=== PATIENT | male | born 1965 | race Caucasian/White ===

== ENCOUNTER → 2021-08-05 09:49 | Outpatient (CLI) | payer BC, SELFPAY | PROVIDERS: PCP Nurse Practitioner Family; Visit Provider Nurse Practitioner | DX: U07.1 COVID-19 (principal) | CPT/HCPCS: C9803; U0003; U0005 ==

== ENCOUNTER 2021-08-05 10:04 | Emergency (ER) | payer BC, SELFPAY ==
[2021-08-05 10:43] VITALS: BP 134/70; PULSE 93; RESP 18; TEMP 37.1; O2SAT 96; BMI 33.7
--- NOTE | 2021-08-05 10:50 | HMH.EDUTC ---
[facility] [place] Impression: Viral syndrome Disposition: Home, Self-Care Condition on Discharge: Good Instructions: DI for Viral Syndrome, DI for COVID-19 (Suspected or Confirmed ), Preventing the Spread of Coronavirus Discharge Instructions Additional Instructions: Drink plenty of fluids. Take tylenol or ibuprofen for pain or fever. Take the medications as directed. Follow up with your regular doctor. GO TO THE ER FOR ANY WORSENING SYMPTOMS Quarantine until you know the results of your covid-19 test. If it is positive, the health department should call you and give you further instructions about your length of Quarantine and other things. Notify your school or workplace of your results and follow their instructions regarding return to work/school. Referrals: Pushpa English APRN [Primary Care Provider] - Time of Disposition: 11:36 Medical Decision Making - Medical Records Medical records reviewed: No: I reviewed the patient's medical records. - Damion Inquiry Pt receiving controlled substance: No Vital Signs: 08/05/21 10:43 08/05/21 11:25 Temperature 98.8 F 98.8 F Temperature Source Oral Pulse Rate 93 H Pulse Rate [Left] 93 H Respiratory Rate 18 18 Blood Pressure 134/70 Blood Pressure [Right Arm] 134/70 Blood Pressure Mean [Right Arm] 91 02 Sat by Pulse Oximetry 96 - Lab Data Lab results reviewed: Yes: I reviewed the patient's lab results. Lab Results 08/05/21 11:12: Strep Scn [facility] Negative 08/05/21 11:25: Chlamy pneumoniae PCR Not detected, Adenovirus (PCR) Not detected, B. pertussis DNA (PCR) Not detected, Coronavirus OC43 (PCR) Not detected, Coronavirus HKU1 (PCR) Not detected, Coronavirus 229E (PCR) Not detected, SARS-CoV-2 (PCR) Detected A, Coronavirus NL63 (PCR) Not detected, Human Metapneumovir PCR Not detected, Influenza A (H1) PCR Not detected, Influ A (H1N1/09) PCR Not detected, Influenza A (H3) PCR Not detected, Influenza Type A (PCR) Not detected, Influenza Type B (PCR) Not detected, M. pneumoniae (PCR) Not detected, Parainfluenza 1 (PCR) Not detected, Parainfluenza 2 (PCR) Not detected, Parainfluenza 3 (PCR) Not detected, Parainfluenza 4 (PCR) Not detected, RSV (PCR) Not detected, Entero/Rhino (PCR) Not detected Orders (Tests/Meds): ORDERS Category Date Time Status Strep Screen Confirmation Routine Micro 08/05/21 11:12 [place] [facility] [place] - General Stated complaint: fever, cough, h/a Time Seen by Provider: 08/05/21 10:50 Mode of Arrival: Ambulatory Source of Information: Patient Limitations: No Limitations Description of Symptoms (Recalled from Triage Doc. by RN): pt c/o a fever x5 days. pt is afebrile at this time. he states he took some dayquil this am. pt was tested for covid earlier this am. HEENT Symptoms (Recalled from RN notes): No Resp Symptoms (Recalled from RN notes): No Skin Symptoms (Recalled from RN notes): No MS Symptoms (Recalled from RN notes): No Functional Status (Recalled from RN notes): wnl - History of Present Illness Provider Complaint: He states that he has has felt bad and ran a fever for the past 5 days. He also c/o a headache. He denies other complaints. - Worker's Comp Is this a Worker's Comp case?: No [facility] History - Hepatitis A Screen Drug use history?: No High risk sexual behaviors?: No History of sexually transmitted infection?: No Currently employed?: No Childcare worker?: No Do you have indoor plumbing?: Yes Do you have electricity?: Yes Attestation statement:: This patient has been screened for Hepatitis A risk factors. I have reviewed the patient's past medical history: Yes ROS Obtained: Yes All systems reviewed & no additional complaints - Constitutional Constitutional: Reports as per HPI - Eyes Eyes: Denies eye discharge - ENT Ears, Nose, Mouth, and Throat: Denies dizziness, Denies otalgia, Denies sore throat, Denies vertigo/dizziness - Cardiovascular Cardiovascular: Jayyie
[2021-08-05 11:22] LABS: UTC Strep Screen (Rapid) Negative (Negative)
[2021-08-05 11:25] VITALS: BP 134/70; PULSE 93; RESP 18; TEMP 37.1
[2021-08-05 11:44] LABS: Adenovirus,PCR Not Detected (NotDetected); Bordetella Pertussis Not Detected (NotDetected); Chlamydophila Pneumoniae, PCR Not Detected (NotDetected); Coronavirus 229E Not Detected (NotDetected); Coronavirus NL63 Not Detected (NotDetected); Coronavirus OC43 Not Detected (NotDetected); Coronovirus HKU1,PCR Not Detected (NotDetected); Human Metapneumovirus Not Detected (NotDetected); Influenza A, PCR Not Detected (NotDetected); Influenza AH1, 2009 Not Detected (NotDetected); Influenza AH1, PCR Not Detected (NotDetected); Influenza AH3,PCR Not Detected (NotDetected); Influenza B, PCR Not Detected (NotDetected); Mycoplasma Pneumoniae, PCR Not Detected (NotDetected); Parainfluenza 1, PCR Not Detected (NotDetected); Parainfluenza 2, PCR Not Detected (NotDetected); Parainfluenza 3, PCR Not Detected (NotDetected); Parainfluenza 4, PCR Not Detected (NotDetected); Respiratory Syncytial Virus Not Detected (NotDetected); Rhinovirus/Enterovirus Not Detected (NotDetected)
[2021-08-05 13:32] LABS: Coronavirus 19, PCR Detected (NotDetected)
== END 2021-08-05 12:00 | disposition home or self-care (01) ==
PROVIDERS: Emergency Provider Nurse Practitioner Family; PCP Nurse Practitioner Family
DX: U07.1 COVID-19 (principal); B34.9 Viral infection, unspecified
CPT/HCPCS: 87581; 87632; 87798; 87880; 99203; C9803; G0463; U0003; U0005

== ENCOUNTER 2021-08-07 10:18 | Emergency (ER) | payer BC, SELFPAY ==
--- NOTE | 2021-08-07 10:48 | XR_ITS ---
PROCEDURE: XR CHEST 2V CLINICAL HISTORY: cough, congestion COMPARISON: No exams were available for comparison FINDINGS: The cardiomediastinal silhouette and pulmonary vascularity are within normal limits. Multifocal small areas of infiltrate are present on both sides suggesting atypical pneumonia. No effusions. No acute bony abnormalities. IMPRESSION: Multifocal bilateral airspace disease. Atypical/Covid19 pneumonia would be considered Dictated by: Teto Reeder MD 08/07/2021 11:16 Teto Reeder MD in [place] 08/07/2021 11:16
[2021-08-07 11:30] VITALS: BP 114/65; PULSE 83; RESP 18; TEMP 36.7; O2SAT 93; BMI 33.7
--- NOTE | 2021-08-07 12:10 | HMH.EDUTC ---
[facility] [place] Disposition Clinical Impression: COVID-19, Viral pneumonia, Viral syndrome Disposition: Home, Self-Care Condition on Discharge: Good Instructions: Pneumonia-Adult, DI for COVID-19 (Suspected or Confirmed ), Preventing the Spread of Coronavirus Discharge Instructions Additional Instructions: Drink plenty of fluids. Take tylenol or ibuprofen for pain or fever. Take the medications as directed. Follow up with your regular doctor. GO TO THE ER FOR ANY WORSENING SYMPTOMS Quarantine because you have covid-19. We are trying to get you set up to take the Bamlanivimab and etesevimab infusion (BAM infusion). This infusion helps a person's immune system fight covid-19 better. You would have to come here to the hospital and take it. This infusion and monitoring afterwards takes about 4 hours. The hospital pharmacy will set the infusion up and call you with a time to be here. The sooner you take it the better you will do. So, hopefully they get it set up for tomorrow. Please watch your telephone answer any calls from the hospital. Prescriptions: Albuterol Sulfate [Albuterol Sulfate Hfa] 2 puffs IH Q6HP PRN 30 Days #1 each PRN Reason: Shortness Of Breath Transmission Status: Received by [facility] Benzonatate [Benzonatate 100mg cap] 100 mg PO TIDP PRN #30 cap PRN Reason: Cough Transmission Status: Received by [facility] dexAMETHasone [Decadron] 6 mg PO DAILY 6 Days #6 tab Transmission Status: Received by [facility] Azithromycin [Z-Javed 250mg Tab*] 250 mg PO UD DOSE PK #6 tab Transmission Status: Received by [facility] Referrals: Pushpa English APRN [Primary Care Provider] - Time of Disposition: 12:30 Medical Decision Making - Medical Records Medical records reviewed: No: I reviewed the patient's medical records. - Damion Inquiry Pt receiving controlled substance: No Vital Signs: 08/07/21 11:30 08/07/21 12:35 Temperature 98.1 F 98.1 F Temperature Source Oral Pulse Rate 83 Pulse Rate [Right Brachial] 83 Respiratory Rate 18 18 Blood Pressure 114/65 Blood Pressure [Right Arm] 114/65 Blood Pressure Mean [Right Arm] 81 Blood Pressure Source [Right Arm] Automatic Cuff Blood Pressure Position [Right Arm] Sitting 02 Sat by Pulse Oximetry 93 L Oxygen Delivery Method Room Air - Lab Data Lab results reviewed: Yes: I reviewed the patient's lab results. - Radiology Data #1 Image(s): Chest Image Reviewed: Yes I reviewed the patient's radiology image, Yes I have reviewed radiologist's interpretation Preliminary Findings: Abnormal PROCEDURE: XR CHEST 2V CLINICAL HISTORY: cough, congestion COMPARISON: No exams were available for comparison FINDINGS: The cardiomediastinal silhouette and pulmonary vascularity are within normal limits. Multifocal small areas of infiltrate are present on both sides suggesting atypical pneumonia. No effusions. No acute bony abnormalities. IMPRESSION: Multifocal bilateral airspace disease. Atypical/Covid19 pneumonia would be considered Dictated by: Teto Reeder MD 08/07/2021 11:16 Teto Reeder MD in [place] 08/07/2021 11:16 [facility] [place] HPI - General Stated complaint: fever, cough, MAN Time Seen by Provider: 08/07/21 12:17 Mode of Arrival: Ambulatory Source of Information: Patient Limitations: No Limitations Description of Symptoms (Recalled from Triage Doc. by RN): PATIENT C/O FEVER, COUGH AND HEADACHE THAT STARTED APPROX OVER A WEEK AGO HEENT Symptoms (Recalled from RN notes): Yes Resp Symptoms (Recalled from RN notes): Yes Skin Symptoms (Recalled from RN notes): No MS Symptoms (Recalled from RN notes): No Functional Status (Recalled from RN notes): WNL - History of Present Illness Provider Complaint: He is back today with complaints of feeling worse instead of better. He was here 2 days ago and tested positive for covid-19. He has not been vaccinated. His main complaints at this time
[2021-08-07 12:35] VITALS: BP 114/65; PULSE 83; RESP 18; TEMP 36.7; O2SAT 93
== END 2021-08-07 12:41 | disposition home or self-care (01) ==
PROVIDERS: Emergency Provider Nurse Practitioner Family; PCP Nurse Practitioner Family
DX: U07.1 COVID-19 (principal); J12.9 Viral pneumonia, unspecified
CPT/HCPCS: 71046; 99202; G0463

== ENCOUNTER → 2021-08-08 09:45 | Outpatient (CLI) | payer BC, SELFPAY ==
--- NOTE | 2021-08-08 10:45 | ECG_ITS ---
APPROVED REPORT Exam: Resting ECG HR:84 bpm ECG Measurements Heart Rate 84 AXES MN 172 P 41 QRSd 70 QRS 85 QT 344 T 29 QTc 406 Conclusion Normal sinus rhythm Normal ECG Electronically signed by : Mehul Stevenson MD 08/13/2021 20:28:09
== END ==
PROVIDERS: PCP Nurse Practitioner Family; Visit Provider Nurse Practitioner Family
DX: U07.1 COVID-19 (principal)
CPT/HCPCS: 93005

== ENCOUNTER 2021-08-08 10:06 | Inpatient (IN) | payer BC, SELFPAY ==
[2021-08-08] VITALS (12 sets, daily range): BP systolic 101–140; BP diastolic 58–73; PULSE 64–92; RESP 18–24; TEMP 36.9–37.1; O2SAT 81–96; BMI 33.7; BMI 33.6
--- NOTE | 2021-08-08 10:19 | PC.NURSE ---
Called RAD to request chest xray
--- NOTE | 2021-08-08 10:19 | PC.NURSE ---
Changed o2 rate to 6L NC
--- NOTE | 2021-08-08 10:26 | PC.NURSE ---
Pt is at xray
[2021-08-08 10:27] LABS: Basophils % 0.3 % (0.1-2.0); Eosinophils % 0.5 % (0.1-12.0); Hematocrit 42.6 % (42.0-52.0); Lymphocytes # 0.5 K/mm3 (0.7-4.5); Lymphocytes % 6.9 % (10-50); Mean Corpuscular HGB Conc 35.3 g/dL (31.8-35.4); Mean Corpuscular Hemoglobin 31.6 pg (27.0-31.2); Mean Corpuscular Volume 89.5 fl (80-94); Mean Platelet Volume 9.4 fl (7.4-10.4); Monocytes # 0.3 K/mm3 (0.1-1.0); Monocytes % 4.6 % (1.7-9.3); Neutrophils # 6.3 K/mm3 (1.8-7.8); Neutrophils % 87.7 % (37.0-80.0); Platelet Count 154 K/mm3 (142-424); Red Blood Count 4.76 M/mm3 (4.60-6.20); Red Cell Distribution Width 14.7 % (11.5-17.5); White Blood Count 7.1 K/mm3 (4.8-10.8)
--- NOTE | 2021-08-08 10:27 | XR_ITS ---
PROCEDURE INFORMATION: Exam: XR Chest Exam date and time: 08/08/2021 10:27 AM Age: 55 years old Clinical indication: Shortness of breath; Additional info: SOB TECHNIQUE: Imaging protocol: XR of the chest. Views: 2 views. COMPARISON: CR XR CHEST 2V 08/07/2021 10:52 AM FINDINGS: Lungs: Bilateral interstitial/airspace disease. Pleural spaces: No pleural effusion. Heart/Mediastinum: Cardiac silhouette upper limits of normal size. Bones/joints: Unremarkable. IMPRESSION: Bilateral interstitial/airspace disease.
[2021-08-08 10:29] LABS: Chloride 95 mmol/L (98-107); Sodium 135 mmol/L (136-145)
--- NOTE | 2021-08-08 10:30 | PC.NURSE ---
Pt is back from RAD
[2021-08-08 10:32] LABS: Alanine Aminotransferase 76 U/L (12-78); Albumin Level 3.8 g/dl (3.5-5.0); Albumin/Globulin Ratio 1.3 (1.1-1.8); Alkaline Phosphatase 115 U/L (38-126); Aspartate Amino Transferase 115 U/L (17-59); Bilirubin,Total 1.2 mg/dl (0.2-1.3); Blood Urea Nitrogen 27 mg/dl (9-20); Carbon Dioxide 34 mmol/L (22.0-30.0); Creatinine Clearance Estimated 102 mL/min (50-200); Estimated Glomerular Filt Rate 62 ml/min (>60); GFR (African American) 76 ML/MIN (>60); Globulin 2.9 g/dL (1.3-3.2); MANUAL DIFFERENTIAL MANUAL DIFFERENTIAL (MANUAL DIFF); Total Protein,Serum 6.7 g/dl (6.3-8.2)
[2021-08-08 10:33] LABS: Calcium 8.1 mg/dl (8.4-10.2); Glucose 168 mg/dl (74-100)
--- NOTE | 2021-08-08 10:36 | PC.NURSE ---
Spoke with topher in the lab pt potassium is 3.0. Told YUSUF CABRAL.
--- NOTE | 2021-08-08 10:40 | PC.NURSE ---
Spoke with annabel VEGA to place pt on Vapotherm.
[2021-08-08 10:53] LABS: Lactate Dehydrogenase 1096 U/L (313-618)
[2021-08-08 10:56] LABS: Lymphocytes % 5 % (10-50); Monocytes % 2 % (2-9); Neutrophils % 93 % (42-76); Platelet Estimate Normal; RBC Morphology Normal; Total Cells Counted 100
[2021-08-08 11:03] LABS: Troponin I 0.01 ng/ml (0.00-0.034)
--- NOTE | 2021-08-08 11:13 | HMH.EDGENADL ---
ED Disposition Clinical Impression: Acute respiratory failure with hypoxia, COVID-19 Disposition: Admitted As Inpatient Condition on Discharge: Fair Time of Disposition: 11:25 - Critical Care Critical Care Time: No Attestation: On 08/08/21, the high probability of a clinically significant, sudden or life threatening deterioration of the following system(s) required my full and direct attention, intervention and personal management. The time I documented below is in addition to time spent performing reported procedures but includes the following listed in this critical care notation. Medical Decision Making - Medical Records Medical records reviewed: Yes: I reviewed the patient's medical records. - Damion Inquiry Pt receiving controlled substance: No Vital Signs: 08/08/21 10:12 08/08/21 10:32 08/08/21 11:00 Temperature 988 F H Temperature Source Oral Pulse Rate 92 H 84 Pulse Rate [Right Radial] 86 Respiratory Rate 19 Blood Pressure 120/62 118/61 Blood Pressure [Right Arm] 117/58 L Blood Pressure Mean 84 Blood Pressure Mean [Right Arm] 77 Blood Pressure Source [Right Arm] Automatic Cuff Blood Pressure Position [Right Arm] Sitting 02 Sat by Pulse Oximetry 90 L 81 L 90 L Oxygen Delivery Method Nasal Cannula Vapotherm Oxygen Flow Rate (LPM) 4 20 08/08/21 11:31 Temperature Temperature Source Pulse Rate 82 Pulse Rate [Right Radial] Respiratory Rate Blood Pressure 110/62 Blood Pressure [Right Arm] Blood Pressure Mean Blood Pressure Mean [Right Arm] Blood Pressure Source [Right Arm] Blood Pressure Position [Right Arm] 02 Sat by Pulse Oximetry 91 L Oxygen Delivery Method Vapotherm Oxygen Flow Rate (LPM) 20 - Lab Data Lab results reviewed: Yes: I reviewed the patient's lab results. Lab Results 08/08/21 10:15: WBC 7.1, RBC 4.76, Hgb 15.0, Hct 42.6, MCV 89.5, MCH 31.6 H, MCHC 35.3, RDW 14.7, Plt Count 154, MPV 9.4, Neut % (Auto) 87.7 H, Lymph % (Auto) 6.9 L, [place] % (Auto) 4.6, Eos % (Auto) 0.5, Baso % (Auto) 0.3, Neut # (Auto) 6.3, Lymph # (Auto) 0.5 L, [place] # (Auto) 0.3, Eos # (Auto) 0.0, Baso # (Auto) 0.0, Total Counted 100, Neutrophils % (Manual) 93 H, Lymphocytes % (Manual) 5 L, Monocytes % (Manual) 2, Platelet Estimate Normal, RBC Morphology Normal 08/08/21 10:15: Sodium 135 L, Potassium 3.0 L, Chloride 95 L, Carbon Dioxide 34 H, Anion Gap 9.0, BUN 27 H, Creatinine 1.20, Estimated Creat Clear 102, Estimated GFR 62, Est GFR ( Amer) 76, Glucose 168 H, Calcium 8.1 L, Total Bilirubin 1.2, AST 115 H, ALT 76, Alkaline Phosphatase 115, Total Protein 6.7, Albumin 3.8, Globulin 2.9, Albumin/Globulin Ratio 1.3 08/08/21 10:15: Lactate Dehydrogenase 1096 H, Troponin I 0.01 08/08/21 10:15: SARS-CoV-2 IgG Ab (Rapid) Negative, SARS-CoV-2 IgM Ab (Rapid) Negative Result diagrams: 08/08/21 10:15 08/08/21 10:15 - Radiology Data #1 Image(s): Chest Image Reviewed: Yes I reviewed the patient's radiology results Preliminary Findings: Abnormal Bilateral interstitial disease - ECG Data Tracing #1 I reviewed this ECG and interpreted as documented below: Normal sinus rhythm, 84 bpm, no ST elevation or depression, no ectopy, normal intervals. Exam somewhat limited by artifact. ECG initial impression date: 08/08/21 ECG initial impression time: 10:50 Medical Decision Narrative: 55yo M initially presenting for outpatient infusion and now requiring 6 L nasal cannula for O2 sat of 90. Patient is known Covid positive. He denies any increased work of breathing or shortness of breath. We will transition him to Vapotherm if available. Patient will obviously need to be admitted for further care. Laboratory studies are only remarkable for an elevated AST and LDH of over thousand, consistent with COVID-19. General Adult HPI - General Chief complaint: Shortness of Breath/Dyspnea Stated complaint: low stats Time Seen by Provider: 08/08/21 10:30 Mode of Arrival: Ambulatory Limitati
--- NOTE | 2021-08-08 11:37 | PC.NURSE ---
Dr Rajesh whitehead.
--- NOTE | 2021-08-08 11:39 | PC.NURSE ---
Spoke with pharmacy they are faxing over medication list
[2021-08-08 12:19] LABS: Coronavirus 19 IgG Antibody Negative (Negative); Coronavirus 19 IgM Antibody Negative (Negative)
[2021-08-08 12:53] LABS: Influenza A, PCR Not Detected (NotDetected); Influenza B, PCR Not Detected (NotDetected)
--- NOTE | 2021-08-08 13:07 | PC.NURSE ---
Called to give report to maria guadalupe did not answer.
[2021-08-08 13:19] LABS: Coronavirus 19, PCR Detected (NotDetected)
--- NOTE | 2021-08-08 13:25 | HMH.PHAVTE ---
[facility] Pharmacy VTE Monitoring - Patient Demographics Admission date: 08/08/21 Report Date: 08/08/21 Time: 13:25 Allergies/Adverse Reactions: Patient Allergies No Known Allergies Allergy (Verified 08/08/21 11:37) Height: 1.78 m Weight: 106.594 kg Patient Problems: Current Active Problems COVID-19 (Acute) Acute respiratory failure with hypoxia (Acute) - VTE Risk Labs: VTE Related Lab Results Hgb 15.0 g/dL (14.1-18.0) 08/08/21 10:15 Hct 42.6 % (42.0-52.0) 08/08/21 10:15 Plt Count 154 K/mm3 (142-424) 08/08/21 10:15 BUN 27 mg/dl (9-20) H 08/08/21 10:15 Creatinine 1.20 mg/dl (0.66-1.25) 08/08/21 10:15 Estimated Creat Clear 102 mL/min (50-200) 08/08/21 10:15 - Prophylaxis VTE Prophylaxis Ordered?: Yes Types of VTE Prophylaxis: IPCS Thigh High, Pharmacological Location of Applied Device: Bilateral Lower Extremeties Pharmacologic Type: Enoxaparin
--- NOTE | 2021-08-08 13:35 | PC.NURSE ---
Spoke with maria guadalupe and gave report
--- NOTE | 2021-08-08 14:14 | HMH.HP ---
*Admission Date: 08/08/21 *Chief complaint: COVID-19 pneumonia *History of present illness: This 55-year-old white male was seen in urgent treatment on 08/05 and had a positive PCR for Covid 19. He was scheduled for RegenCov antibody infusion as an outpatient today but was found to be hypoxic. He is admitted for full treatment for Covid 19 pneumonia. He is a poor historian. He is from [place] and sees a nurse practitioner there, Pushpa English. He states he is healthy except for hypertension and hyperlipidemia. He states he does not tolerate cholesterol medicines very well. The patient exhibits some spasticity suggestive of cerebral palsy. 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[employer]) *Travel in the last 8 weeks: None Family Hx:: Cancer (Father), Other (Brother in an auto accident) Review of Systems - Constitutional Denies body ache(s) - Eyes Denies change in vision - ENT Denies change in voice - *Cardiovascular Reports shortness of breath, Reports shortness of breath with activity, Denies chest pain, Denies leg swelling, Denies rapid, pounding, or irregular heartbeat - *Respiratory Reports chest congestion, Reports cough, Reports shortness of breath, Reports shortness of breath with activity - *Gastrointestinal Denies abdominal pain, Denies loose stools - *Genitourinary Denies difficulty urinating - *Musculoskeletal Reports stiffness, Denies joint pain - Integumentary/Breasts Denies bleeding lesions - *Neurologic Reports abnormal walking - Hematologic/Lymphatic Denies easy bleeding Meds Home Medications Medication Instructions Recorded Confirmed Type Albuterol Sulfate [Albuterol 2 puffs IH Q6HP PRN 30 Days #1 each 08/07/21 08/08/21 Rx Sulfate Hfa] Benzonatate [Benzonatate 100mg 100 mg PO TIDP PRN #30 cap 08/07/21 08/08/21 Rx cap] Ezetimibe [Zetia] 10 mg PO DAILY 08/07/21 08/08/21 History Losartan Potassium [Cozaar 100mg 100 mg PO DAILY 08/07/21 08/08/21 History Tablets] hydroCHLOROthiazide [HCTZ 25mg 25 mg PO DAILY 08/07/21 08/08/21 History tab] Fish Oil/Dha/Epa [Fish Oil 1,200 1 each PO DAILY 08/08/21 08/08/21 History mg Fish Oil] dexAMETHasone [Decadron] 6 mg PO DAILY 08/08/21 08/08/21 History Allergies Allergy/AdvReac Type Severity Reaction Status Date / Time No Known Allergies Allergy Verified 08/08/21 11:37 Exam Vital signs and Labs for Last 24 Hours: Temp Pulse Resp BP Pulse Ox 988 F H 88 22 114/73 94 L 08/08/21 10:12 08/08/21 14:04 08/08/21 14:04 08/08/21 14:04 08/08/21 14:04 Laboratory Results - last 24 hr 08/08/21 10:15: WBC 7.1, RBC 4.76, Hgb 15.0, Hct 42.6, MCV 89.5, MCH 31.6 H, MCHC 35.3, RDW 14.7, Plt Count 154, MPV 9.4, Neut % (Auto) 87.7 H, Lymph % (Auto) 6.9 L, [place] % (Auto) 4.6, Eos % (Auto) 0.5, Baso % (Auto) 0.3, Neut # (Auto) 6.3, Lymph # (Auto) 0.5 L, [place] # (Auto) 0.3, Eos # (Auto) 0.0, Baso # (Auto) 0.0, Total Counted 100, Neutrophils % (Manual) 93 H, Lymphocytes % (Manual) 5 L, Monocytes % (Manual) 2, Platelet Estimate Normal, RBC Morphology Normal 08/08/21 10:15: Sodium 135 L, Potassium 3.0 L, Chloride 95 L, Carbon Dioxide 34 H, Anion Gap 9.0, BUN 27 H, Creatinine 1.20, Estimated Creat Clear 102, Estimated GFR 62, Est GFR ( Amer) 76, Glucose 168 H, Calcium 8.1 L, Total Bilirubin 1.2, AST 115 H, ALT 76, Alkaline Phosphatase 115, Total Protein 6.7, Albumin 3.8, Globulin 2.9, Albumin/Globulin Ratio 1.3 08/08/21 10:15: Lactate Dehydrogenase 1096 H, Troponin I 0.01 08/08/21 1
--- NOTE | 2021-08-08 16:44 | PC.NURSE ---
Pt has been pleasant and cooperative this shift. A&O X4. No complaints of pain. SOA noted with exertion. Pt is currently receiving O2 via NC @ 10 LPM with sats. >90%. Lung sounds reveal expiratory rhonchi. No edema noted. Skin is C/D/I. Pt ambulates with stand-by assistance to/from the bathroom and throughout the room. Urine is clear and yellow. No BM thus far this shift. Appetite is fair and pt has eaten the majority of all meals. 18 G peripheral IV in the RT AC is patent and infusing NS @ 100 ML/HR. VSS. Call light within reach. Will continue to monitor.
[2021-08-09] VITALS (9 sets, daily range): BP systolic 111–130; BP diastolic 57–76; PULSE 75–87; RESP 20–44; TEMP 36.6–37.8; O2SAT 86–96; BMI 33.6
--- NOTE | 2021-08-09 05:14 | PC.NURSE ---
Pt was placed on Vapotherm at 00:30 at 30L/min and 90%. Pt's O2 saturation has been 88-90%. Pt had no c/o of pain thus far in shift. Pt has slept well t/o shift. Call light within reach.
[2021-08-09 06:50] LABS: Basophils % 0.2 % (0.1-2.0); Eosinophils % 0.1 % (0.1-12.0); Hematocrit 39.3 % (42.0-52.0); Hemoglobin 13.7 g/dL (14.1-18.0); Lymphocytes # 0.5 K/mm3 (0.7-4.5); Lymphocytes % 7.6 % (10-50); Mean Corpuscular HGB Conc 34.8 g/dL (31.8-35.4); Mean Corpuscular Hemoglobin 31.3 pg (27.0-31.2); Mean Corpuscular Volume 89.9 fl (80-94); Mean Platelet Volume 9.6 fl (7.4-10.4); Monocytes # 0.3 K/mm3 (0.1-1.0); Monocytes % 3.5 % (1.7-9.3); Neutrophils # 6.3 K/mm3 (1.8-7.8); Neutrophils % 88.6 % (37.0-80.0); Platelet Count 150 K/mm3 (142-424); Red Blood Count 4.37 M/mm3 (4.60-6.20); Red Cell Distribution Width 14.7 % (11.5-17.5); White Blood Count 7.1 K/mm3 (4.8-10.8)
[2021-08-09 06:52] LABS: MANUAL DIFFERENTIAL MANUAL DIFFERENTIAL (MANUAL DIFF)
[2021-08-09 07:03] LABS: Lymphocytes % 14 % (10-50); Monocytes % 1 % (2-9); Neutrophils % 77 % (42-76); Platelet Estimate Normal; RBC Morphology Normal; Total Cells Counted 100
[2021-08-09 07:46] LABS: Albumin Level 3.1 g/dl (3.5-5.0); Albumin/Globulin Ratio 1.1 (1.1-1.8); Alkaline Phosphatase 99 U/L (38-126); Anion Gap 8.7 mEq/L (5-15); Aspartate Amino Transferase 110 U/L (17-59); Bilirubin,Total 1.4 mg/dl (0.2-1.3); Blood Urea Nitrogen 27 mg/dl (9-20); Calcium 7.6 mg/dl (8.4-10.2); Carbon Dioxide 34 mmol/L (22.0-30.0); Chloride 98 mmol/L (98-107); Creatinine Clearance Estimated 137 mL/min (50-200); Estimated Glomerular Filt Rate 87 ml/min (>60); GFR (African American) 105 ML/MIN (>60); Globulin 2.9 g/dL (1.3-3.2); Glucose 148 mg/dl (74-100); Sodium 138 mmol/L (136-145)
[2021-08-09 07:49] LABS: Potassium 2.7 mmoL/L (3.5-5.1)
[2021-08-09 08:17] LABS: Alanine Aminotransferase 66 U/L (12-78)
--- NOTE | 2021-08-09 08:22 | PC.NURSE ---
IS placed @ bedside, pt educated. IS @ best = 1000. Pt will require continuous reminding and encouragement to use.
--- NOTE | 2021-08-09 09:11 | PC.NURSE ---
Spoke to pt's mother via phone, updated on current plan of care.
--- NOTE | 2021-08-09 12:41 | HMH.ACPN2 ---
Internal Medicine - PN: Subj *Date: 08/09/21 *Time: 12:41 Interval history: Has required Vapotherm to maintain saturations. He is on at this point. He rests comfortably but drops his saturations with any exertion. Potassium was low at 2.7 on labs this morning. 20 mEq 3 times daily has been ordered for supplementation. Recheck in the morning. Exam Vital signs and Labs for Last 24 Hours: Temp Pulse Resp BP Pulse Ox 99.5 F 78 22 120/68 91 L 08/09/21 11:45 08/09/21 11:45 08/09/21 11:45 08/09/21 11:45 08/09/21 11:45 Laboratory Results - last 24 hr 08/08/21 12:47: SARS-CoV-2 (PCR) Detected A, Influenza A Untype (PCR) Not detected, Influenza Type B (PCR) Not detected 08/09/21 06:05: WBC 7.1, RBC 4.37 L, Hgb 13.7 L, Hct 39.3 L, MCV 89.9, MCH 31.3 H, MCHC 34.8, RDW 14.7, Plt Count 150, MPV 9.6, Neut % (Auto) 88.6 H, Lymph % (Auto) 7.6 L, [place] % (Auto) 3.5, Eos % (Auto) 0.1, Baso % (Auto) 0.2, Neut # (Auto) 6.3, Lymph # (Auto) 0.5 L, [place] # (Auto) 0.3, Eos # (Auto) 0.0, Baso # (Auto) 0.0, Total Counted 100, Neutrophils % (Manual) 77 H, Band Neutrophils % 8.0, Lymphocytes % (Manual) 14, Monocytes % (Manual) 1 L, Platelet Estimate Normal, RBC Morphology Normal 08/09/21 06:05: Sodium 138, Potassium 2.7 L*, Chloride 98, Carbon Dioxide 34 H, Anion Gap 8.7, BUN 27 H, Creatinine 0.90 D, Estimated Creat Clear 137, Estimated GFR 87, Est GFR ( Amer) 105 D, Glucose 148 H, Calcium 7.6 L, Total Bilirubin 1.4 H, AST 110 H, ALT 66, Alkaline Phosphatase 99, Total Protein 6.0 L, Albumin 3.1 L D, Globulin 2.9, Albumin/Globulin Ratio 1.1 I & O for Last 24 hours: Intake & Output 08/07/21 08/08/21 08/09/21 08/10/21 11:59 11:59 11:59 11:59 Intake Total 679 / 679 Output Total 1250 / 1250 Balance -571 / -571 Weight 235 lb 234 lb 15.746 oz - Constitutional no acute distress - *Routine HEENT Exam Head: Present: normocephalic Eye: Present: EOMI, PERRL ENT: Present: mucous membranes moist - *Routine Neck Exam Present: supple. Absent: lymphadenopathy - *Routine Respiratory Exam Present: CTA bilaterally (Fairly good air movement bilaterally.). Absent: rhonchi, wheezes - *Routine Cardiovascular Exam Present: RRR - *Routine Abdominal Exam Present: soft, normoactive bowel sounds, obese. Absent: tenderness - *Routine Extremities Exam Absent: cyanosis, clubbing, edema - *Routine Skin Exam Present: warm. Absent: rash - *Routine Neurological Exam Present: alert, oriented X3 Assessment and Plan (1) COVID-19 Status: Acute Category: Medical Code(s): U07.1 - COVID-19 (2) Acute respiratory failure with hypoxia Status: Acute Category: Medical Code(s): J96.01 - Acute respiratory failure with hypoxia (3) Viral pneumonia Status: Acute Category: Medical Code(s): J12.9 - Viral pneumonia, unspecified (4) Hypertension Status: Acute Category: Medical Code(s): I10 - Essential (primary) hypertension (5) Cerebral palsy Status: Acute Category: Medical Code(s): G80.9 - Cerebral palsy, unspecified (6) Hyperlipidemia Status: Acute Category: Medical Code(s): E78.5 - Hyperlipidemia, unspecified (7) Hypokalemia Status: Acute Category: Medical Code(s): E87.6 - Hypokalemia - Assessment and plan all Dx Assessment and Plan for all problems:: Continue Vapotherm. Adjust according to saturations. Supplement potassium.
--- NOTE | 2021-08-09 13:34 | PC.NURSE ---
Pt sat mid 80's, vapotherm increased to 30 L/100% per RT. Sat maintaining > 90%.
--- NOTE | 2021-08-09 16:19 | PC.NURSE ---
Pt currently sitting up in recliner watching TV. Pt does desat w/ activity and is weak requiring assistance x1 d/t safety concerns. He is currently on 30L/100%. He does have a persistent cough, but is non-productive. Speci cup available @ bedside. IS encouraged throughout shift. No complaints voiced. Call sarah beth w/in reach.
[2021-08-10] VITALS (8 sets, daily range): BP systolic 106–156; BP diastolic 51–84; PULSE 80–100; RESP 19–39; TEMP 36.4–38.2; O2SAT 87–98; BMI 32.1
--- NOTE | 2021-08-10 05:20 | PC.NURSE ---
Pt O2 sat started to decline in the 60's, placed NRB on pt with Vapotherm at 40L/ 100% and pt's O2 increased to 83-85%. Paged and received order to place pt on Bipap. Pt has tolerated bipap t/o the night with an O2 sat >90%. Pt voiced no c/o of pain thus far in shift. Call light within reach.
[2021-08-10 06:29] LABS: Basophils % 0.4 % (0.1-2.0); Hematocrit 41.9 % (42.0-52.0); Hemoglobin 13.8 g/dL (14.1-18.0); Lymphocytes # 0.7 K/mm3 (0.7-4.5); Lymphocytes % 9.5 % (10-50); Mean Corpuscular Hemoglobin 30.7 pg (27.0-31.2); Mean Corpuscular Volume 92.9 fl (80-94); Mean Platelet Volume 9.5 fl (7.4-10.4); Monocytes # 0.3 K/mm3 (0.1-1.0); Neutrophils # 6.2 K/mm3 (1.8-7.8); Platelet Count 181 K/mm3 (142-424); Red Blood Count 4.51 M/mm3 (4.60-6.20); Red Cell Distribution Width 14.7 % (11.5-17.5); White Blood Count 7.2 K/mm3 (4.8-10.8)
[2021-08-10 06:32] LABS: MANUAL DIFFERENTIAL MANUAL DIFFERENTIAL (MANUAL DIFF)
[2021-08-10 06:47] LABS: Blood Urea Nitrogen 24 mg/dl (9-20); Calcium 7.6 mg/dl (8.4-10.2); Carbon Dioxide 38 mmol/L (22.0-30.0); Chloride 99 mmol/L (98-107); Creatinine Clearance Estimated 130 mL/min (50-200); Estimated Glomerular Filt Rate 87 ml/min (>60); GFR (African American) 105 ML/MIN (>60); Glucose 129 mg/dl (74-100); Sodium 140 mmol/L (136-145)
[2021-08-10 06:50] LABS: D-Dimer 1.05 ug/mL (0.0-0.5)
[2021-08-10 06:53] LABS: C-Reactive Protein 79.8 mg/L (0-4)
[2021-08-10 06:54] LABS: NT Pro Brain Natriuretic Pep. 203 pg/mL (0-125)
--- NOTE | 2021-08-10 08:38 | PC.NURSE ---
Griselda Hicks, SARA went in to check pt's VS. Pt started yelling take this mask off, take this mask off now! Chilo Lagos and myself went in to try to calm pt. Respiratory was notified that patient was refusing to keep bipap mask on they came and switched him back over to vapotherm. Pt's O2 sat is currently 94% on 40L/100% fio2. He also states that he is going home today. MD rounding on the floor at this time and will be notified.
[2021-08-10 09:15] LABS: Lymphocytes % 7 % (10-50); Monocytes % 5 % (2-9); Neutrophils % 88 % (42-76); Total Cells Counted 100
[2021-08-10 09:17] LABS: Platelet Estimate Normal; RBC Morphology Normal
--- NOTE | 2021-08-10 09:30 | P.PN_ITS ---
Internal Medicine - PN: Subj *Date: 08/10/21 *Time: 09:30 Interval history: The patient became more hypoxic during the night and was placed on BiPAP which she was not able to tolerate. He is on Vapotherm at this point 40/100. He still drops his sats below 90. He has decreased breath sounds. We are looking forward to pulmonary consultation. Exam Vital signs and Labs for Last 24 Hours: Temp Pulse Resp BP Pulse Ox 97.6 F 87 22 156/84 H 98 08/10/21 08:00 08/10/21 08:00 08/10/21 08:00 08/10/21 08:00 08/10/21 08:00 Laboratory Results - last 24 hr 08/10/21 05:42: D-Dimer 1.05 H 08/10/21 05:42: Sodium 140, Potassium 3.0 L, Chloride 99, Carbon Dioxide 38 H, Anion Gap 6.0, BUN 24 H, Creatinine 0.90, Estimated Creat Clear 130, Estimated GFR 87, Est GFR ( Amer) 105, Glucose 129 H, Calcium 7.6 L, C-Reactive Protein 79.8 H, NT-Pro-B Natriuret Pep 203 H 08/10/21 05:42: WBC 7.2, RBC 4.51 L, Hgb 13.8 L, Hct 41.9 L, MCV 92.9, MCH 30.7, MCHC 33.0, RDW 14.7, Plt Count 181, MPV 9.5, Neut % (Auto) 86.0 H, Lymph % (Auto) 9.5 L, Daniels % (Auto) 4.0, Eos % (Auto) 0.0 L, Baso % (Auto) 0.4, Neut # (Auto) 6.2, Lymph # (Auto) 0.7, Daniels # (Auto) 0.3, Eos # (Auto) 0.0, Baso # (Auto) 0.0, Total Counted 100, Neutrophils % (Manual) 88 H, Lymphocytes % (Manual) 7 L, Monocytes % (Manual) 5, Platelet Estimate Normal, RBC Morphology Normal I & O for Last 24 hours: Intake & Output 08/07/21 08/08/21 08/09/21 08/10/21 11:59 11:59 11:59 11:59 Intake Total 679 / 679 989 / 989 Output Total 1250 / 1250 900 / 900 Balance -571 / -571 89 / 89 Weight 235 lb 234 lb 15.746 oz 224 lb 9 oz - Constitutional no acute distress, mild distress - *Routine HEENT Exam Head: Present: normocephalic Eye: Present: EOMI, PERRL ENT: Present: mucous membranes moist - *Routine Neck Exam Present: supple. Absent: lymphadenopathy - *Routine Respiratory Exam Present: decreased breath sounds - *Routine Cardiovascular Exam Present: RRR - *Routine Abdominal Exam Present: soft, normoactive bowel sounds. Absent: tenderness - *Routine Extremities Exam Absent: cyanosis, clubbing, edema - *Routine Skin Exam Present: warm. Absent: rash - *Routine Neurological Exam Present: alert, oriented X3 Assessment and Plan (1) COVID-19 Status: Acute Category: Medical Code(s): U07.1 - COVID-19 (2) Acute respiratory failure with hypoxia Status: Acute Category: Medical Code(s): J96.01 - Acute respiratory failure with hypoxia (3) Viral pneumonia Status: Acute Category: Medical Code(s): J12.9 - Viral pneumonia, unspecified (4) Hypertension Status: Acute Category: Medical Code(s): I10 - Essential (primary) hypertension (5) Cerebral palsy Status: Acute Category: Medical Code(s): G80.9 - Cerebral palsy, unspecified (6) Hyperlipidemia Status: Acute Category: Medical Code(s): E78.5 - Hyperlipidemia, unspecified (7) Hypokalemia Status: Acute Category: Medical Code(s): E87.6 - Hypokalemia - Assessment and plan all Dx Assessment and Plan for all problems:: Continue on Vapotherm. Pulmonary consultation.
--- NOTE | 2021-08-10 11:58 | HMH.PULMCON ---
*Admission Date: 08/08/21 *Reason for consult:: Acute hypoxic respiratory failure, COVID-19 pneumonia *History of present illness: Mr. Nelson is a 55-year-old male never smoker no prior respiratory complaints as per the patient, completed his vaccination for COVID-19 pneumonia presented to the hospital with worsening respiratory distress and found to be positive for COVID-19 pneumonia needing high flow nasal cannula oxygen supplementation to maintain his saturations at the desired level and pulmonary was called for further management. [facility] History Medical History: Reports:: Hyperlipidemia, Hypertension Denies:: Cancer, Diabetes Mellitus Type 1, Diabetes Mellitus Type 2, MRSA *Have you ever received a pneumonia vaccine?: No *Have you received a flu vaccine this season?: No Laterality Cases: Left: Other (Left elbow dislocation with treatment) Other Surgeries: Yes: No Previous Surgery Amputation: No Fractures: No - *Social History Last grade of school completed: 11th or 12th Smoking Status: Never smoker Alcohol Intake: never Substance Use Type: denies use *Occupational Status:: employed Household Members: family *Travel in the last 8 weeks: None Family Hx:: Cancer ROS - Cons Reports body ache(s), Reports chills - Card Reports shortness of breath, Reports shortness of breath with activity - Resp Respiratory: Reports shortness of breath, Reports cough, Reports non-productive cough, Denies excessive phlegm production, Denies cough with sputum production, Denies pain with breathing - GI Gastrointestingal: Denies: abdominal pain - Psych Denies thoughts of hurting/killing others, Denies thoughts of hurting/killing yourself Meds Home Medications Medication Instructions Recorded Confirmed Type Albuterol Sulfate [Albuterol 2 puffs IH Q6HP PRN 30 Days #1 each 08/07/21 08/08/21 Rx Sulfate Hfa] Benzonatate [Benzonatate 100mg 100 mg PO TIDP PRN #30 cap 08/07/21 08/08/21 Rx cap] Ezetimibe [Zetia] 10 mg PO DAILY 08/07/21 08/08/21 History Losartan Potassium [Cozaar 100mg 100 mg PO DAILY 08/07/21 08/08/21 History Tablets] hydroCHLOROthiazide [HCTZ 25mg 25 mg PO DAILY 08/07/21 08/08/21 History tab] Azithromycin 250 mg PO DAILY 08/08/21 08/08/21 History Fish Oil/Dha/Epa [Fish Oil 1,200 1 each PO DAILY 08/08/21 08/08/21 History mg Fish Oil] dexAMETHasone [Decadron] 6 mg PO DAILY 08/08/21 08/08/21 History Allergies Allergy/AdvReac Type Severity Reaction Status Date / Time Wcxtzjo-[id number]-Esx Reductase Allergy Verified 08/08/21 14:33 Inhibitor Exam - Constitutional Constitutional:: Absent: no acute distress, comfortable - HENMT Exam HENMT: Present: normocephalic - Eye Exam Eyes:: Present: normal appearance both eyes and related structures - Neck Exam Neck:: Present: normal visual inspection - Respiratory Exam Respiratory:: Present: able to speak in complete sentences, respiratory distress. Absent: wheezing - Cardiovascular Exam Cardiac:: Present: S1, S2 - GI Exam GI:: Present: soft, no tenderness - Skin Exam Skin: Present: warm - Neurological Exam Neurological: Present: alert, awake - Extremities Exam Extremities: Present: no cyanosis, no clubbing, no edema Internal Medicine - CN: Reslt - Labs CBC & Chem 7: 08/10/21 05:42 08/10/21 05:42 Labs: Short CBC 08/10/21 Range/Units 05:42 WBC 7.2 (4.8-10.8) K/mm3 Hgb 13.8 L (14.1-18.0) g/dL Hct 41.9 L (42.0-52.0) % Plt Count 181 (142-424) K/mm3 BMP 08/10/21 05:42 Sodium 140 Potassium 3.0 L Chloride 99 Carbon Dioxide 38 H BUN 24 H Creatinine 0.90 Glucose 129 H Calcium 7.6 L Assessment and Plan (1) COVID-19 Status: Acute Category: Medical Code(s): U07.1 - COVID-19 (2) Acute respiratory failure with hypoxia Status: Acute Category: Medical Code(s): J96.01 - Acute respiratory failure with hypoxia (3) Viral pneumonia Status: Acute Category: Medical
--- NOTE | 2021-08-10 11:59 | CT_ITS ---
PROCEDURE: CT ANGIO CHEST PE PROTOCOL CLINCIAL INDICATION: Hypoxia COMPARISON: CR XR CHEST 2V from 08/08/2021 TECHNIQUE: IV Contrast: 70ML Isovue 370 Axial images obtained with sagittal and coronal reformats. All CT scans at the facility use one or more dose reduction, viz: automated exposure control, ma/kV adjustment per patient size (including targeted exams where dose is matched to indication, i.e. head), or iterative reconstruction technique. FINDINGS: HEART AND MEDIASTINAL STRUCTURES: No evidence of pulmonary embolus, aortic aneurysm, or aortic dissection. There is a small hiatal hernia. No mediastinal or hilar adenopathy. LUNGS AND PLEURAL SPACES: There is diffuse ground-glass attenuation of the upper and lower lobes with some peripheral sparing of the lung bases. No evidence of pneumothorax. No pleural effusion. BONY STRUCTURES: No acute bony abnormalities apparent. UPPER ABDOMEN: Fatty liver. The gallbladder is contracted ADDITIONAL FINDINGS: No other significant abnormalities. IMPRESSION: Diffuse ground-glass opacification in both upper and lower lobes suggesting Covid19 pneumonia. No evidence of pulmonary embolus. Dictated by: Teto Reeder MD 08/10/2021 13:02 Teto Reeder MD in [place] 08/10/2021 13:02
--- NOTE | 2021-08-10 15:50 | PC.NURSE ---
Pt is alert and oriented x4. Lungs are clear but diminished. He remains on vapotherm 40L/100% with O2 sats running in the upper 80's to mid 90's. Pt had an episode where O2 sat dropped to 38%. Upon return to his room from chest CTA pt went into the bathroom to have a bm. He apparently removed O2 then ambulated to his bed. I quickly placed patients vapotherm on him and nonrebreather. It took approx 5 minutes for O2 sat to return to low 90's. Pt has been educated several times on the danger of removing O2 and O2 saturations being that low. He verbalized understanding. Sputum unable to be collected, pt's cough is dry and non productive. Urinal at bedside for use. He is currently resting in bed with his eyes closed.
--- NOTE | 2021-08-10 23:02 | PC.NURSE ---
He is A&Ox4. He was incontinent of stool. Odilia-care and linen change per staff. He continues on vapotherm @ 40LPM 100% FiO2. He denies pain.
[2021-08-11] VITALS (12 sets, daily range): BP systolic 123–158; BP diastolic 59–95; PULSE 82–121; RESP 20–46; TEMP 36.6–37.4; O2SAT 86–93; BMI 31.8
--- NOTE | 2021-08-11 05:51 | PC.NURSE ---
Patient instructed about sputum. Cup in the room
[2021-08-11 06:37] LABS: Alanine Aminotransferase 75 U/L (12-78); Albumin Level 3.2 g/dl (3.5-5.0); Albumin/Globulin Ratio 1.1 (1.1-1.8); Alkaline Phosphatase 115 U/L (38-126); Aspartate Amino Transferase 113 U/L (17-59); Bilirubin,Total 1.6 mg/dl (0.2-1.3); Blood Urea Nitrogen 19 mg/dl (9-20); Calcium 8.3 mg/dl (8.4-10.2); Carbon Dioxide 36 mmol/L (22.0-30.0); Chloride 99 mmol/L (98-107); Creatinine Clearance Estimated 146 mL/min (50-200); Estimated Glomerular Filt Rate 100 ml/min (>60); GFR (African American) 121 ML/MIN (>60); Glucose 109 mg/dl (74-100); Sodium 141 mmol/L (136-145); Total Protein,Serum 6.2 g/dl (6.3-8.2)
--- NOTE | 2021-08-11 08:50 | HMH.ACPN2 ---
Internal Medicine - PN: Subj *Date: 08/11/21 *Time: 08:50 Interval history: Patient denies chest pain and shortness of breath. He is sitting on the bedside with BiPAP on. Apparently late in the a.m. his O2 sats dropped in the 70s with max on Vapotherm and was switched to BiPAP. He is wanting to eat breakfast. Respiratory will come and switch him back to Vapotherm so he can eat. He adamantly says he is going home today but is very cooperative with care. A.m. lab revealed potassium of 3. BUN is 19 and creatinine 0.8. Exam Vital signs and Labs for Last 24 Hours: Temp Pulse Resp BP Pulse Ox 99.4 F 94 H 21 125/70 92 L 08/11/21 04:00 08/11/21 04:00 08/11/21 04:00 08/11/21 04:00 08/11/21 05:50 Laboratory Results - last 24 hr 08/10/21 05:42: Total Counted 100, Neutrophils % (Manual) 88 H, Lymphocytes % (Manual) 7 L, Monocytes % (Manual) 5, Platelet Estimate Normal, RBC Morphology Normal 08/11/21 06:00: Sodium 141, Potassium 3.0 L, Chloride 99, Carbon Dioxide 36 H, Anion Gap 9.0, BUN 19, Creatinine 0.80, Estimated Creat Clear 146, Estimated GFR 100, Est GFR ( Amer) 121, Glucose 109 H, Calcium 8.3 L, Total Bilirubin 1.6 H, AST 113 H, ALT 75, Alkaline Phosphatase 115, Total Protein 6.2 L, Albumin 3.2 L, Globulin 3.0, Albumin/Globulin Ratio 1.1 I & O for Last 24 hours: Intake & Output 08/08/21 08/09/21 08/10/21 08/11/21 11:59 11:59 11:59 11:59 Intake Total 679 / 679 989 / 989 1121 / 1121 Output Total 1250 / 1250 1100 / 1100 790 / 790 Balance -571 / -571 -111 / -111 331 / 331 Weight 235 lb 234 lb 15.746 oz 224 lb 9 oz 222 lb 10.67 oz - Constitutional no acute distress Comments: Sitting on the bedside with BiPAP on wanting to eat breakfast - *Routine Respiratory Exam Present: CTA bilaterally (Anteriorly and posteriorly. Good air movement) - *Routine Cardiovascular Exam Present: RRR - *Routine Abdominal Exam Present: soft, normoactive bowel sounds. Absent: tenderness - *Routine Extremities Exam Absent: edema, calf tenderness - *Routine Neurological Exam Present: alert, oriented X3 Assessment and Plan (1) COVID-19 Status: Acute Category: Medical Code(s): U07.1 - COVID-19 (2) Acute respiratory failure with hypoxia Status: Acute Category: Medical Code(s): J96.01 - Acute respiratory failure with hypoxia (3) Viral pneumonia Status: Acute Category: Medical Code(s): J12.9 - Viral pneumonia, unspecified (4) Hypertension Status: Acute Category: Medical Code(s): I10 - Essential (primary) hypertension (5) Cerebral palsy Status: Acute Category: Medical Code(s): G80.9 - Cerebral palsy, unspecified (6) Hyperlipidemia Status: Acute Category: Medical Code(s): E78.5 - Hyperlipidemia, unspecified (7) Hypokalemia Status: Acute Category: Medical Code(s): E87.6 - Hypokalemia - Assessment and plan all Dx Assessment and Plan for all problems:: We will try patient on Vapotherm while eating breakfast this morning. Otherwise continue pulmonary care. Pulmonology to follow as well.
--- NOTE | 2021-08-11 08:59 | PC.NURSE ---
pt switched to Vapotherm 40L/100% with NRB over top. Dr. Mena rounding and ordered to keep sat in the 90s and that we can utilize Vapotherm or Bipap.
--- NOTE | 2021-08-11 09:12 | PC.NURSE ---
O2 sat 83% on Vapotherm 40L/100% with NRB. Called RT (Greta), who switched him back to Bipap 100% rate 20 27/04. O2 sat now 97%.
--- NOTE | 2021-08-11 09:25 | P.PN_ITS ---
Internal Medicine - PN: Subj *Date: 08/11/21 *Time: 12:24 Interval history: Patient admits worsening respiratory symptoms. Exam - Constitutional Constitutional:: Absent: no acute distress, comfortable - HENMT Exam HENMT: Present: normocephalic - Neck Exam Neck:: Present: normal visual inspection - Respiratory Exam Respiratory:: Present: respiratory distress, rales. Absent: able to speak in complete sentences - Cardiovascular Exam Cardiac:: Present: S1, S2 - GI Exam GI:: Present: soft - Skin Exam Skin: Present: warm, no rash - Neurological Exam Neurological: Present: alert, awake - Extremities Exam Extremities: Present: no cyanosis, no clubbing, clubbing Assessment and Plan (1) COVID-19 Status: Acute Category: Medical Code(s): U07.1 - COVID-19 (2) Acute respiratory failure with hypoxia Status: Acute Category: Medical Code(s): J96.01 - Acute respiratory failure with hypoxia (3) Viral pneumonia Status: Acute Category: Medical Code(s): J12.9 - Viral pneumonia, unspecified (4) Hypertension Status: Acute Category: Medical Code(s): I10 - Essential (primary) hypertension (5) Cerebral palsy Status: Acute Category: Medical Code(s): G80.9 - Cerebral palsy, unspecified (6) Hyperlipidemia Status: Acute Category: Medical Code(s): E78.5 - Hyperlipidemia, unspecified (7) Hypokalemia Status: Acute Category: Medical Code(s): E87.6 - Hypokalemia - Assessment and plan all Dx Assessment and Plan for all problems:: #Acute hypoxic respiratory failure: #COVID-19 pneumonia: 55-year-old completed vaccination for COVID-19 pneumonia no prior respiratory complaints not on any inhalers at baseline presented with respiratory distress. Low-grade fevers with a T-max of 100.6. No evidence of leukocytosis. Chest x- ray bilateral airspace disease. D-dimer elevated at 1.05 and CRP at 79. LDH at 1096 Interval update: AST remained stable. Bilirubin slightly worsening now at 1.6. Renal function stable. Hyperkalemia managed by primary team. CTA showed bilateral diffuse groundglass opacities Patient respiratory slightly worsened from yesterday. He was intermittently placed on BiPAP and he has been receiving tidal volume of 700 cc. BiPAP was changed to high flow nasal cannula with proning and saturations improved. Patient did not proned yesterday. I have strongly encouraged to follow proning protocol. Patient respiratory status critical and worsening, he is currently prone on high flow nasal cannula 40 L 100% with saturations barely maintaining at 88 to 92%. We will closely monitor. Will discontinue maintenance fluids. Plan: Continue proning protocol extensively discussed with the patient and he is agreeable. DuoNebs every 6 scheduled Continue ceftriaxone and azithromycin. We will closely monitor transaminases and bilirubin levels. Continue remdesivir, dexamethasone and baricitinib #Thank you for involving pulmonary in this patient care. We will continue to follow.
--- NOTE | 2021-08-11 10:18 | PC.NURSE ---
Dr. Blanca rounding. He switched pt to Vapotherm 40L/100%. Pt now in prone position. Dr. Blanca ordered to DISCONTINUE MIVF. Order faxed to pharmacy.
--- NOTE | 2021-08-11 14:46 | PC.NURSE ---
RESP CARE NOTE: Pt placed in prone position again. No distress and no questions about re positioning.
[2021-08-12] VITALS (32 sets, daily range): BP systolic 60–135; BP diastolic 38–70; PULSE 50–114; RESP 20–41; TEMP 36.4–39.2; O2SAT 86–98; BMI 31.8
--- NOTE | 2021-08-12 02:18 | PC.NURSE ---
Addendum entered by Teena Castillo RN 08/12/21 05:59: Pt sats have remained above 88% after placing on bipap. Original Note: Paged respiratory due to pts declining o2 sats at 0130. Pt sats maintaining low 80s while proned. Pt was placed on Bipap by respiratory at this time with improvement in o2 sats to mid 90s.
[2021-08-12 07:25] LABS: Chloride 98 mmol/L (98-107)
[2021-08-12 07:26] LABS: Potassium 3.4 mmoL/L (3.5-5.1); Sodium 140 mmol/L (136-145)
[2021-08-12 07:27] LABS: Magnesium 2.6 mg/dl (1.6-2.3)
[2021-08-12 07:28] LABS: Alanine Aminotransferase 75 U/L (12-78); Alkaline Phosphatase 141 U/L (38-126); Anion Gap 9.4 mEq/L (5-15); Aspartate Amino Transferase 122 U/L (17-59); Bilirubin,Total 1.4 mg/dl (0.2-1.3); Blood Urea Nitrogen 19 mg/dl (9-20); Carbon Dioxide 36 mmol/L (22.0-30.0); Creatinine Clearance Estimated 146 mL/min (50-200); Estimated Glomerular Filt Rate 100 ml/min (>60); GFR (African American) 121 ML/MIN (>60)
[2021-08-12 07:29] LABS: Albumin Level 3.2 g/dl (3.5-5.0); Albumin/Globulin Ratio 1.1 (1.1-1.8); Glucose 115 mg/dl (74-100); Total Protein,Serum 6.2 g/dl (6.3-8.2)
[2021-08-12 07:39] LABS: Phosphorous 1.8 mg/dl (2.5-4.5)
--- NOTE | 2021-08-12 07:51 | PC.NURSE ---
received call from lab reporting Phos 1.8. Name and verified. Dr. Blanca updated.
--- NOTE | 2021-08-12 08:45 | P.PN_ITS ---
Internal Medicine - PN: Subj *Date: 08/12/21 *Time: 08:45 Interval history: Patient is maxed on Vapotherm and also has a nonrebreather in place. He states he cannot breathe this morning and is in respiratory distress. His oxygen is in the 80s and his heart rate is in the 120s. Exam Vital signs and Labs for Last 24 Hours: Temp Pulse Resp BP Pulse Ox 99.1 F 110 H 40 H 135/51 L 86 L 08/12/21 04:00 08/12/21 06:04 08/12/21 04:00 08/12/21 04:00 08/12/21 06:04 Laboratory Results - last 24 hr 08/12/21 06:40: Sodium 140, Potassium 3.4 L, Chloride 98, Carbon Dioxide 36 H, Anion Gap 9.4, BUN 19, Creatinine 0.80, Estimated Creat Clear 146, Estimated GFR 100, Est GFR ( Amer) 121, Glucose 115 H, Calcium 8.0 L, Total Bilirubin 1.4 H, AST 122 H, ALT 75, Alkaline Phosphatase 141 H, Total Protein 6.2 L, Albumin 3.2 L, Globulin 3.0, Albumin/Globulin Ratio 1.1 08/12/21 06:40: Phosphorus 1.8 L, Magnesium 2.6 H I & O for Last 24 hours: Intake & Output 08/09/21 08/10/21 08/11/21 08/12/21 11:59 11:59 11:59 11:59 Intake Total 679 / 679 989 / 989 1601 / 1601 240 / 240 Output Total 1250 / 1250 1100 / 1100 1230 / 1230 900 / 900 Balance -571 / -571 -111 / -111 371 / 371 -660 / -660 Weight 234 lb 15.746 oz 224 lb 9 oz 222 lb 10.67 oz 222 lb 10.67 oz - Constitutional severe distress - *Routine Respiratory Exam Present: decreased breath sounds, rhonchi, wheezes - *Routine Cardiovascular Exam Present: tachycardia - *Routine Abdominal Exam Present: soft, normoactive bowel sounds. Absent: tenderness - *Routine Extremities Exam Absent: cyanosis, clubbing, edema - *Routine Skin Exam Present: warm. Absent: rash - *Routine Neurological Exam Present: alert, oriented X3 Assessment and Plan (1) COVID-19 Status: Acute Category: Medical Code(s): U07.1 - COVID-19 (2) Acute respiratory failure with hypoxia Status: Acute Category: Medical Code(s): J96.01 - Acute respiratory failure with hypoxia (3) Viral pneumonia Status: Acute Category: Medical Code(s): J12.9 - Viral pneumonia, unspecified (4) Hypertension Status: Acute Category: Medical Code(s): I10 - Essential (primary) hype rtension (5) Cerebral palsy Status: Acute Category: Medical Code(s): G80.9 - Cerebral palsy, unspecified (6) Hyperlipidemia Status: Acute Category: Medical Code(s): E78.5 - Hyperlipidemia, unspecified (7) Hypokalemia Status: Acute Category: Medical Code(s): E87.6 - Hypokalemia - Assessment and plan all Dx Assessment and Plan for all problems:: Patient is in respiratory distress. We will consult anesthesia to intubate this morning.
[2021-08-12 08:49] LABS: Microscopic, Urine URINE MICROSCOPIC (MICROSCOPIC)
--- NOTE | 2021-08-12 09:27 | XR_ITS ---
PROCEDURE INFORMATION: Exam: XR Chest Exam date and time: 08/12/2021 9:27 AM Age: 55 years old Clinical indication: Device placement; Ett placement (vent status); Additional info: Intubated @ 0915 TECHNIQUE: Imaging protocol: XR of the chest. Views: 1 view. COMPARISON: CR XR CHEST 2V 08/08/2021 10:16 AM FINDINGS: Tubes, catheters and devices: Endotracheal tube terminates approximately 2.7 cm above the pamela. Lungs: Redemonstrated patchy bilateral airspace opacities. Pleural spaces: Unremarkable. No pleural effusion. No pneumothorax. Heart/Mediastinum: Unremarkable. No cardiomegaly. Bones/joints: Unremarkable. IMPRESSION: 1. Endotracheal tube terminates approximately 2.7 cm above the pamela. 2. Redemonstrated multilobar pneumonia.
[2021-08-12 10:02] LABS: Appearance,Urine CLEAR (Clear); Blood, Urine 2+ (Negative); Color,Urine YELLOW (Yellow); Glucose,Urine (UA) Negative (Negative); Ketones,Urine 3+ (Negative); Leukocyte Esterase,Urine Negative (Negative); Nitrate,Urine Negative (Negative); Protein,Urine 2+ (Negative); Specific Gravity, Urine 1.025 (1.005-1.030)
--- NOTE | 2021-08-12 10:20 | PC.NURSE ---
RESP CARE NOTE: Pt FIO2 decreased to 80% per Dr Blanca v/o.
--- NOTE | 2021-08-12 10:52 | XR_ITS ---
PROCEDURE: XR CHEST PORTABLE CLINICAL HISTORY: questionable pneumothorax r/t hypotension COMPARISON: CR XR CHEST 2V from 08/07/2021 CR XR CHEST 2V from 08/08/[address] ANGIO CHEST PE PROTOCOL from 08/10/2021 CR XR CHEST PORTABLE from 08/12/2021 FINDINGS: 11:04 a.m.. Endotracheal tube tip is slightly low 1 cm above the pamela projected toward the right mainstem bronchus and should be withdrawn approximately 2 cm. NG tube tip not visible on the film but below the GE junction. Diffuse ground-glass attenuation in both lungs not significantly changed. No evidence of pneumothorax. Mild cardiomegaly. No acute bony findings. IMPRESSION: Slightly low position of the endotracheal tube. Jerica, the patient's nurse was notified of this finding 08/12/2021 at 11:30 a.m.. No change diffuse bilateral ground-glass infiltrate. No evidence of pneumothorax. Dictated by: Teto Reeder MD 08/12/2021 11:36 Teto Reeder MD in [facility] 08/12/2021 11:36
--- NOTE | 2021-08-12 11:04 | HMH.PULMPN ---
Internal Medicine - PN: Subj *Date: 08/12/21 *Time: 11:04 Interval history: Patient respiratory status continued to decline overnight eventually needing intubation and mechanical ventilatory support. Exam - Constitutional Constitutional:: Present: comfortable - HENMT Exam HENMT: Present: normocephalic - Eye Exam Eyes:: Present: normal appearance both eyes and related structures - Neck Exam Neck:: Present: normal visual inspection - Respiratory Exam Respiratory:: Present: respiratory distress, rales, rhonchi - Cardiovascular Exam Cardiac:: Present: S1, S2 - GI Exam GI:: Present: soft, no tenderness - Skin Exam Skin: Present: warm - Neurological Exam Neurological: Absent: alert, awake, normal cognition Intubated and sedated - Extremities Exam Extremities: Present: no cyanosis, no clubbing, edema Assessment and Plan (1) COVID-19 Status: Acute Category: Medical Code(s): U07.1 - COVID-19 (2) Acute respiratory failure with hypoxia Status: Acute Category: Medical Code(s): J96.01 - Acute respiratory failure with hypoxia (3) Viral pneumonia Status: Acute Category: Medical Code(s): J12.9 - Viral pneumonia, unspecified (4) Hypertension Status: Acute Category: Medical Code(s): I10 - Essential (primary) hypertension (5) Cerebral palsy Status: Acute Category: Medical Code(s): G80.9 - Cerebral palsy, unspecified (6) Hyperlipidemia Status: Acute Category: Medical Code(s): E78.5 - Hyperlipidemia, unspecified (7) Hypokalemia Status: Acute Category: Medical Code(s): E87.6 - Hypokalemia - Assessment and plan all Dx Assessment and Plan for all problems:: #Acute hypoxic respiratory failure: #COVID-19 pneumonia: 55-year-old completed vaccination for COVID-19 pneumonia no prior respiratory complaints not on any inhalers at baseline presented with respiratory distress. Low-grade fevers with a T-max of 100.6. No evidence of leukocytosis. Chest x-ray bilateral airspace disease. D-dimer elevated at 1.05 and CRP at 79. LDH at 1096 Patient was also initiated on ceftriaxone and azithromycin along with continuation of remdesivir dexamethasone and baricitinib. CTA showed bilateral diffuse groundglass opacities Interval update: Patient intermittently noncompliant with proning protocol leading to acute desaturation episodes. Patient intermittently needing BiPAP overnight with gradual worsening respiratory distress eventually warranting intubation and mechanical ventilation this a.m. Plan: Intubated and sedated we will continue propofol and fentanyl. Respiratory distress gradually worsening needing intubation and mechanical ventilatory support. Patient currently on PEEP of 16, 80% FiO2 tidal volume of 440 and a rate of 26. Patient saturating 95% on these vent settings and ABG showed a pH of 7.38, PCO2 45 and PO2 of 72. We will follow with tracheal aspirate and nasal MRSA PCR. We will continue ceftriaxone azithromycin. We will continue remdesivir dexamethasone and barcitinib Patient become hemodynamically unstable post intubation. Will initiate pressors will follow with repeat chest x-ray. Afebrile. No evidence of leukocytosis. Abdomen soft nontender. Will initiate tube feeds. Transaminases and bilirubin levels stable. We will continue to monitor. Renal function stable. - Continue mechanical ventilatory support - Continue AnalgoSedation with Propofol and Fentanyl with CPOT gal less than or euqal to 2 and RASS goal of 1 to 2 - VAP bundle Elevate head of the bed at 30 to 45 degrees Oral care with chlorhexidne GI ulcer prophylaxis - Famotidine 20mg IV BID Chemical DVT prophylaxis
[2021-08-12 11:08] LABS: ABG Base Excess 1.9 mmol/L (-2.4-2.3); ABG HCO3 26.9 mmhg (22.0-26.0); ABG Oxygen Saturation 94 % (90-100); ABG PCO2 45.7 mmhg (35.0-45.0); ABG PH 7.39 mmol/L (7.35-7.45); ABG TCO2 28.3 mmhg (23-27)
[2021-08-12 11:09] LABS: Oxygen 80 %; PEEP 16; Source Left Radial; Tidal Volume 440; Vent Rate 26
--- NOTE | 2021-08-12 11:45 | PC.NURSE ---
BP 60/38. Levo gtt started @ 10mcg/min per Dr. Blanca.
[2021-08-12 12:10] LABS: Bilirubin,Urine 1+ (Negative)
[2021-08-12 12:20] LABS: Amorphous Sediment,Urine 1+ /lpf; Bacteria,Urine 1+ /lpf
[2021-08-12 12:23] LABS: Triglycerides 137 mg/dl (30-150)
--- NOTE | 2021-08-12 14:00 | PC.NURSE ---
BP 112/63. Levo gtt decreased to 8mcg/min.
--- NOTE | 2021-08-12 14:45 | PC.NURSE ---
BP 111/60. Levo gtt decreased to 6mcg/min.
--- NOTE | 2021-08-12 15:17 | PC.NURSE ---
RESP CARE NOTE: PEEP weaned to [address] Blanca t/o.
[2021-08-13] VITALS (28 sets, daily range): BP systolic 91–116; BP diastolic 49–66; PULSE 44–79; RESP 22–33; TEMP 36.5–36.9; O2SAT 92–99; BMI 31.5
--- NOTE | 2021-08-13 05:44 | PC.NURSE ---
no acute events t/o night, theodore draining clear yellow urine with 25-55 mL out per hour, fentanyl at 50, propofol at 50, levo at 4, vent settings remain at 70% FiO2, rate of 26, peep of 14, tidal volume 440
--- NOTE | 2021-08-13 06:00 | XR_ITS ---
PROCEDURE INFORMATION: Exam: XR Chest Exam date and time: 08/13/2021 6:00 AM Age: 55 years old Clinical indication: Device placement; Ett placement (vent status); Patient HX: Robbie; Additional info: Daily while intubated TECHNIQUE: Imaging protocol: XR of the chest. Views: 1 view. COMPARISON: CR XR CHEST PORTABLE 08/12/2021 11:04 AM FINDINGS: Tubes, catheters and devices: There is an endotracheal tube with its tip 5.1 cm above the pamela. A nasogastric tube is noted with its tip below the diaphragm. Lungs: Patchy areas of interstitial consolidation noted within both mid and lower lung zones. Greatest involvement is at the right lung base. The distribution and severity of interstitial infiltrates is unchanged since 08/12/2021. Pleural spaces: Unremarkable. No pleural effusion. No pneumothorax. Heart/Mediastinum: Unremarkable. No cardiomegaly. Bones/joints: Unremarkable. IMPRESSION: 1. Endotracheal tube and nasogastric tube in good position. 2. The distribution and severity of interstitial infiltrates within both lung olivo, taking into account differences in technique, is not appreciably changed since 08/12/2021.
[2021-08-13 06:53] LABS: ABG Base Excess 2.1 mmol/L (-2.4-2.3); ABG HCO3 26.4 mmhg (22.0-26.0); ABG Oxygen Saturation 94 % (90-100); ABG PCO2 40.9 mmhg (35.0-45.0); ABG PH 7.43 mmol/L (7.35-7.45); ABG PO2 69.1 mmhg (80-100); ABG TCO2 27.7 mmhg (23-27)
[2021-08-13 06:54] LABS: Allen's Test Patient Unable; Oxygen 70 %; PEEP 16; Source Right Radial; Tidal Volume 440; Vent Rate 26
[2021-08-13 07:22] LABS: Basophils % 0.2 % (0.1-2.0); Eosinophils % 0.1 % (0.1-12.0); Hematocrit 40.2 % (42.0-52.0); Hemoglobin 13.8 g/dL (14.1-18.0); Lymphocytes # 0.9 K/mm3 (0.7-4.5); Mean Corpuscular HGB Conc 34.3 g/dL (31.8-35.4); Mean Corpuscular Hemoglobin 31.2 pg (27.0-31.2); Mean Corpuscular Volume 91.1 fl (80-94); Mean Platelet Volume 10.3 fl (7.4-10.4); Monocytes # 0.4 K/mm3 (0.1-1.0); Monocytes % 2.5 % (1.7-9.3); Neutrophils # 16.1 K/mm3 (1.8-7.8); Neutrophils % 92.1 % (37.0-80.0); Platelet Count 254 K/mm3 (142-424); Red Blood Count 4.41 M/mm3 (4.60-6.20); Red Cell Distribution Width 14.8 % (11.5-17.5); White Blood Count 17.5 K/mm3 (4.8-10.8)
[2021-08-13 07:27] LABS: Chloride 100 mmol/L (98-107); Sodium 139 mmol/L (136-145)
[2021-08-13 07:28] LABS: Potassium 3.7 mmoL/L (3.5-5.1)
[2021-08-13 07:30] LABS: Alanine Aminotransferase 56 U/L (12-78); Alkaline Phosphatase 117 U/L (38-126); Anion Gap 10.7 mEq/L (5-15); Aspartate Amino Transferase 69 U/L (17-59); Bilirubin,Total 1.3 mg/dl (0.2-1.3); Blood Urea Nitrogen 21 mg/dl (9-20); Calcium 7.8 mg/dl (8.4-10.2); Carbon Dioxide 32 mmol/L (22.0-30.0); Creatinine Clearance Estimated 165 mL/min (50-200); Estimated Glomerular Filt Rate 116 ml/min (>60); GFR (African American) 141 ML/MIN (>60); Glucose 168 mg/dl (74-100)
[2021-08-13 07:31] LABS: Albumin/Globulin Ratio 1.1 (1.1-1.8); Globulin 2.7 g/dL (1.3-3.2); Total Protein,Serum 5.7 g/dl (6.3-8.2)
[2021-08-13 07:40] LABS: MANUAL DIFFERENTIAL MANUAL DIFFERENTIAL (MANUAL DIFF)
--- NOTE | 2021-08-13 08:48 | HMH.ACPN2 ---
Internal Medicine - PN: Subj *Date: 08/13/21 *Time: 08:48 Interval history: Patient was intubated and sedated yesterday due to respiratory failure. Nursing states his propofol has had to be increased. He was started on a Levophed drip due to hypotension. His blood pressures have been stable. His oxygen and heart rate have been stable as well. Exam Vital signs and Labs for Last 24 Hours: Temp Pulse Resp BP Pulse Ox 98.2 F 64 28 H 113/59 L 95 08/13/21 08:00 08/13/21 08:00 08/13/21 08:00 08/13/21 08:00 08/13/21 08:00 Laboratory Results - last 24 hr 08/12/21 08:24: Urine Color Yellow, Urine Appearance Clear, Urine pH 6.0, Ur Specific [place] 1.025, Urine Protein 2+, Urine Glucose (UA) Negative, Urine Ketones 3+, Urine Blood 2+, Urine Nitrate Negative, Urine Bilirubin 1+ A, Urine Urobilinogen 1.0, Ur Leukocyte Esterase Negative, Urine RBC 5-10, Urine WBC 3-5, Ur Squamous Epith Cells 3-5, Amorphous Sediment 1+, Urine Bacteria 1+ 08/12/21 10:04: Triglycerides 137 08/12/21 10:15: Specimen Source Left radial, O2 % 80, ABG pH 7.39, ABG pCO2 45.7 H, ABG pO2 72.0 L, ABG HCO3 26.9 H, ABG Total CO2 28.3 H, ABG O2 Saturation 94, ABG Base Excess 1.9, Vent Rate 26, Tidal Volume 440, PEEP 16 08/13/21 06:00: Specimen Source Right radial, O2 % 70, ABG pH 7.43, ABG pCO2 40.9, ABG pO2 69.1 L, ABG HCO3 26.4 H, ABG Total CO2 27.7 H, ABG O2 Saturation 94, ABG Base Excess 2.1, Teto Test Patient unable, Vent Rate 26, Tidal Volume 440, PEEP 16 08/13/21 06:31: Sodium 139, Potassium 3.7, Chloride 100, Carbon Dioxide 32 H, Anion Gap 10.7, BUN 21 H, Creatinine 0.70, Estimated Creat Clear 165, Estimated GFR 116, Est GFR ( Amer) 141, Glucose 168 H D, Calcium 7.8 L, Total Bilirubin 1.3, AST 69 H D, ALT 56 D, Alkaline Phosphatase 117, Total Protein 5.7 L, Albumin 3.0 L, Globulin 2.7, Albumin/Globulin Ratio 1.1 08/13/21 06:31: WBC 17.5 H, RBC 4.41 L, Hgb 13.8 L, Hct 40.2 L, MCV 91.1, MCH 31.2, MCHC 34.3, RDW 14.8, Plt Count 254 D, MPV 10.3, Neut % (Auto) 92.1 H, Lymph % (Auto) 5.0 L, [place] % (Auto) 2.5, Eos % (Auto) 0.1, Baso % (Auto) 0.2, Neut # (Auto) 16.1 H, Lymph # (Auto) 0.9, [place] # (Auto) 0.4, Eos # (Auto) 0.0, Baso # (Auto) 0.0 I & O for Last 24 hours: Intake & Output 08/10/21 08/11/21 08/12/21 08/13/21 11:59 11:59 11:59 11:59 Intake Total 989 / 989 1601 / 1601 600 / 600 2440 / 2440 Output Total 1100 / 1100 1230 / 1230 990 / 1010 795 / 795 Balance -111 / -111 371 / 371 -390 / -410 1645 / 1645 Weight 224 lb 9 oz 222 lb 10.67 oz 222 lb 10.67 oz 220 lb 8 oz Microbiology Reports for the Last 24 Hours: Microbiology 08/12/21 08:12 Sputum - Endotracheal Tube Aspirate Gram Stain - Final - Constitutional no acute distress - *Routine Respiratory Exam Present: patient mechanically ventilated - *Routine Cardiovascular Exam Present: RRR - *Routine Abdominal Exam Present: soft, normoactive bowel sounds. Absent: tenderness - *Routine Extremities Exam Absent: cyanosis, clubbing, edema - *Routine Skin Exam Present: warm. Absent: rash - *Routine Neurological Exam Patient sedated Assessment and Plan (1) COVID-19 Status: Acute Category: Medical Code(s): U07.1 - COVID-19 (2) Acute respiratory failure with hypoxia Status: Acute Category: Medical Code(s): J96.01 - Acute respiratory failure with hypoxia (3) Viral pneumonia Status: Acute Category: Medical Code(s): J12.9 - Viral pneumonia, unspecified (4) Hypertension Status: Acute Category: Medical Code(s): I10 - Essential (primary) hypertension (5) Cerebral palsy Status: Acute Category: Medical Code(s): G80.9 - Cerebral palsy, unspecified (6) Hyperlipidemia Status: Acute Category: Medical Code(s): E78.5 - Hyperlipidemia, unspecified (7) Hypokalemia Status: Acute Category: Medical Code(s): E87.6 - Hypokalemia - Assessment and plan all Dx Assessment and Plan for all problems:: Pulmonology to follow. Will disc
--- NOTE | 2021-08-13 09:42 | PC.NURSE ---
Levo gtt titrated down to 3mcg/min @ this time.
[2021-08-13 09:46] LABS: Lymphocytes % 5 % (10-50); Monocytes % 4 % (2-9); Neutrophils % 91 % (42-76); Platelet Estimate Normal; RBC Morphology Normal; Total Cells Counted 100
--- NOTE | 2021-08-13 11:25 | PC.NURSE ---
MD Blanca weaned FiO2 to 60 % at this time. SpO2 of 94% at this time
--- NOTE | 2021-08-13 11:29 | P.PN_ITS ---
Internal Medicine - PN: Subj *Date: 08/13/21 *Time: 11:29 Exam Vital signs and Labs for Last 24 Hours: Temp Pulse Resp BP Pulse Ox 98.4 F 66 33 H 93/50 L 96 08/13/21 10:00 08/13/21 11:00 08/13/21 11:00 08/13/21 11:00 08/13/21 11:00 Laboratory Results - last 24 hr 08/12/21 08:24: Urine Color Yellow, Urine Appearance Clear, Urine pH 6.0, Ur Specific [place] 1.025, Urine Protein 2+, Urine Glucose (UA) Negative, Urine Ketones 3+, Urine Blood 2+, Urine Nitrate Negative, Urine Bilirubin 1+ A, Urine Urobilinogen 1.0, Ur Leukocyte Esterase Negative, Urine RBC 5-10, Urine WBC 3-5, Ur Squamous Epith Cells 3-5, Amorphous Sediment 1+, Urine Bacteria 1+ 08/12/21 10:04: Triglycerides 137 08/13/21 06:00: Specimen Source Right radial, O2 % 70, ABG pH 7.43, ABG pCO2 40.9, ABG pO2 69.1 L, ABG HCO3 26.4 H, ABG Total CO2 27.7 H, ABG O2 Saturation 94, ABG Base Excess 2.1, Teto Test Patient unable, Vent Rate 26, Tidal Volume 440, PEEP 16 08/13/21 06:31: Sodium 139, Potassium 3.7, Chloride 100, Carbon Dioxide 32 H, Anion Gap 10.7, BUN 21 H, Creatinine 0.70, Estimated Creat Clear 165, Estimated GFR 116, Est GFR ( Amer) 141, Glucose 168 H D, Calcium 7.8 L, Total Bilirubin 1.3, AST 69 H D, ALT 56 D, Alkaline Phosphatase 117, Total Protein 5.7 L, Albumin 3.0 L, Globulin 2.7, Albumin/Globulin Ratio 1.1 08/13/21 06:31: WBC 17.5 H, RBC 4.41 L, Hgb 13.8 L, Hct 40.2 L, MCV 91.1, MCH 31.2, MCHC 34.3, RDW 14.8, Plt Count 254 D, MPV 10.3, Neut % (Auto) 92.1 H, Lymph % (Auto) 5.0 L, [place] % (Auto) 2.5, Eos % (Auto) 0.1, Baso % (Auto) 0.2, Neut # (Auto) 16.1 H, Lymph # (Auto) 0.9, [place] # (Auto) 0.4, Eos # (Auto) 0.0, Baso # (Auto) 0.0, Total Counted 100, Neutrophils % (Manual) 91 H, Lymphocytes % (Manual) 5 L, Monocytes % (Manual) 4, Platelet Estimate Normal, RBC Morphology Normal I & O for Last 24 hours: Intake & Output 08/10/21 08/11/21 08/12/21 08/13/21 23:59 23:59 23:59 23:59 Intake Total 1630 / 1630 720 / 720 2385 / 2433 559 / 559 Output Total 550 / 950 1180 / 1880 1225 / 1275 440 / 440 Balance 1080 / 680 -460 / -1160 1160 / 1158 119 / 119 Weight 101.86 kg 101 kg 101 kg 100.017 kg Microbiology Reports for the Last 24 Hours: Microbiology 08/12/21 08:12 Sputum - Endotracheal Tube Aspirate Gram Stain - Final Assessment and Plan (1) COVID-19 Status: Acute Category: Medical Code(s): U07.1 - COVID-19 (2) Acute respiratory failure with hypoxia Status: Acute Category: Medical Code(s): J96.01 - Acute respiratory failure with hypoxia (3) Viral pneumonia Status: Acute Category: Medical Code(s): J12.9 - Viral pneumonia, unspecified (4) Hypertension Status: Acute Category: Medical Code(s): I10 - Essential (primary) hypertension (5) Cerebral palsy Status: Acute Category: Medical Code(s): G80.9 - Cerebral palsy, unspecified (6) Hyperlipidemia Status: Acute Category: Medical Code(s): E78.5 - Hyperlipidemia, unspecified (7) Hypokalemia Status: Acute Category: Medical Code(s): E87.6 - Hypokalemia The patient's infection will respond to the chosen ABx?: Yes Is the patient receiving the right drug, dose, and route?: Yes Could a more targeted ABx be ordered?: No (CX PENDING, AFEBRILE)
--- NOTE | 2021-08-13 14:49 | HMH.PULMPN ---
Internal Medicine - PN: Subj *Date: 08/13/21 *Time: 14:49 Interval history: No acute respiratory events overnight. Exam - Constitutional Constitutional:: Present: no acute distress, comfortable - HENMT Exam HENMT: Present: normocephalic, atraumatic - Eye Exam Eyes:: Present: normal appearance both eyes and related structures - Neck Exam Neck:: Present: normal visual inspection - Respiratory Exam Respiratory:: Present: rales, rhonchi. Absent: wheezing - Cardiovascular Exam Cardiac:: Present: S1, S2 - GI Exam GI:: Present: soft, no hepatosplenomegaly, no tenderness - Skin Exam Skin: Present: warm, no rash - Neurological Exam Neurological: Absent: alert, awake, normal cognition - Extremities Exam Extremities: Present: no cyanosis, no clubbing, edema Assessment and Plan (1) COVID-19 Status: Acute Category: Medical Code(s): U07.1 - COVID-19 (2) Acute respiratory failure with hypoxia Status: Acute Category: Medical Code(s): J96.01 - Acute respiratory failure with hypoxia (3) Viral pneumonia Status: Acute Category: Medical Code(s): J12.9 - Viral pneumonia, unspecified (4) Hypertension Status: Acute Category: Medical Code(s): I10 - Essential (primary) hypertension (5) Cerebral palsy Status: Acute Category: Medical Code(s): G80.9 - Cerebral palsy, unspecified (6) Hyperlipidemia Status: Acute Category: Medical Code(s): E78.5 - Hyperlipidemia, unspecified (7) Hypokalemia Status: Acute Category: Medical Code(s): E87.6 - Hypokalemia - Assessment and plan all Dx Assessment and Plan for all problems:: #Acute hypoxic respiratory failure: #COVID-19 pneumonia: 55-year-old completed vaccination for COVID-19 pneumonia no prior respiratory complaints not on any inhalers at baseline presented with respiratory distress. Low-grade fevers with a T-max of 100.6. No evidence of leukocytosis. Chest x-ray bilateral airspace disease. D-dimer elevated at 1.05 and CRP at 79. LDH at 1096 Patient was also initiated on ceftriaxone and azithromycin along with continuation of remdesivir dexamethasone and baricitinib. CTA showed bilateral diffuse groundglass opacities Patient respiratory is continued decline eventually needing intubation and mechanical ventilatory support on 08/12/2021. Plan: Intubated and sedated we will continue propofol and fentanyl. Intermittent bradycardia. We will try to decrease the dose of propofol. Triglycerides at 137 Improving respiratory status, FiO2 weaned to 60% and PEEP to 14. He is setting for 40 of tidal volume at a rate of 26. ABG from this morning reviewed. Chest x-ray post retraction of the ET tube did not show any acute change from yesterday however showed slight worsening infiltrates from prior to intubation. We will closely monitor. We will follow with tracheal aspirate and nasal MRSA PCR. We will continue ceftriaxone azithromycin. We will continue remdesivir dexamethasone and barcitinib Patient become hemodynamically unstable post intubation. Was initiated on pressors after 1 L LR bolus. He is on 4 mics of norepinephrine with MAP maintained at 65 or greater. We will continue to monitor. Afebrile. Leukocytosis worsened from yesterday. We will closely monitor. Abdomen soft nontender. Will initiate tube feeds. Transaminases and bilirubin levels IMPROVING. We will continue to monitor. Renal function stable. - Continue mechanical ventilatory support - Continue AnalgoSedation with Propofol and Fentanyl with CPOT gal less than or euqal to 2 and RASS goal of 1 to 2 - VAP bundle Elevate head of the bed at 30 to 45 degrees Oral care with chlorhexidne GI ulcer prophylaxis - Famotidine 20mg IV BID Chemical DVT prophylaxis
--- NOTE | 2021-08-13 15:20 | PC.NURSE ---
MRSA swab sent to lab at this time.
--- NOTE | 2021-08-13 16:47 | PC.NURSE ---
Levo weaned down to 2 mcg/min. BP 113/58 Pt abram 49-52bpm. Propofol titrated down to 50mcg/min.
--- NOTE | 2021-08-13 17:43 | PC.NURSE ---
Spoke with Mathieu Montes RD about nutrition consult on pt
--- NOTE | 2021-08-13 17:44 | PC.NURSE ---
BP 104/53. Levo gtt decreased to 1mcg/min at this time.
--- NOTE | 2021-08-13 18:41 | PC.NURSE ---
Pulmocare tube feedings started at this time at a rate of 20mL/hr.
[2021-08-14] VITALS (32 sets, daily range): BP systolic 92–117; BP diastolic 43–60; PULSE 46–88; RESP 26–34; TEMP 36.5–39.1; O2SAT 86–98; BMI 31.7
--- NOTE | 2021-08-14 05:44 | PC.NURSE ---
at 0300 pt began frequently alarming, pulling at tube, respirations increased to 36, sats began dropping to the 80's,, sedation was increased, propofol at 60, fentanyl at 100, later increased to propofol 80 and fentanyl 150, pt still restless, sats continued to stay in low 80's, Dr. Delgado paged and ordered 4mg versed and stat chest xray, 0500 RT increased FiO2 to 70%, pt now resting comfortably, RASS -3
--- NOTE | 2021-08-14 06:00 | XR_ITS ---
PROCEDURE INFORMATION: Exam: XR Chest Exam date and time: 08/14/2021 6:00 AM Age: 55 years old Clinical indication: Device placement; Ett placement (vent status); Patient HX: Bucking tube; Additional info: Daily while intubated TECHNIQUE: Imaging protocol: XR of the chest. Views: 1 view. COMPARISON: CR XR CHEST PORTABLE 08/13/2021 3:07 AM FINDINGS: Tubes, catheters and devices: Endotracheal tube terminates approximately 5.9 cm above the pamela. NG tube passes into the stomach. Lungs: Similar patchy bilateral airspace opacities. Pleural spaces: Unremarkable. No pleural effusion. No pneumothorax. Heart/Mediastinum: Unremarkable. No cardiomegaly. Bones/joints: Unremarkable. IMPRESSION: 1. Endotracheal tube terminates approximately 5.9 cm above the pamela. 2. Similar appearance of multilobar pneumonia.
[2021-08-14 07:05] LABS: Basophils # 0.1 K/mm3 (0-0.2); Basophils % 0.2 % (0.1-2.0); Eosinophils # 0.1 K/mm3 (0.0-0.4); Eosinophils % 0.7 % (0.1-12.0); Hematocrit 38.8 % (42.0-52.0); Hemoglobin 13.1 g/dL (14.1-18.0); Lymphocytes # 0.9 K/mm3 (0.7-4.5); Lymphocytes % 4.8 % (10-50); Mean Corpuscular HGB Conc 33.7 g/dL (31.8-35.4); Mean Corpuscular Hemoglobin 31.4 pg (27.0-31.2); Mean Corpuscular Volume 93.3 fl (80-94); Mean Platelet Volume 10.6 fl (7.4-10.4); Monocytes # 0.5 K/mm3 (0.1-1.0); Monocytes % 2.5 % (1.7-9.3); Neutrophils % 91.8 % (37.0-80.0); Platelet Count 267 K/mm3 (142-424); Red Blood Count 4.16 M/mm3 (4.60-6.20); Red Cell Distribution Width 14.6 % (11.5-17.5); White Blood Count 18.5 K/mm3 (4.8-10.8)
[2021-08-14 07:09] LABS: MANUAL DIFFERENTIAL MANUAL DIFFERENTIAL (MANUAL DIFF)
[2021-08-14 07:10] LABS: Chloride 101 mmol/L (98-107)
[2021-08-14 07:11] LABS: Potassium 3.9 mmoL/L (3.5-5.1); Sodium 139 mmol/L (136-145)
[2021-08-14 07:13] LABS: Alanine Aminotransferase 46 U/L (12-78); Alkaline Phosphatase 116 U/L (38-126); Aspartate Amino Transferase 73 U/L (17-59); Blood Urea Nitrogen 24 mg/dl (9-20); Creatinine Clearance Estimated 165 mL/min (50-200); Estimated Glomerular Filt Rate 116 ml/min (>60); GFR (African American) 141 ML/MIN (>60)
[2021-08-14 07:14] LABS: Albumin Level 2.7 g/dl (3.5-5.0); Albumin/Globulin Ratio 0.9 (1.1-1.8); Anion Gap 5.9 mEq/L (5-15); Calcium 7.6 mg/dl (8.4-10.2); Carbon Dioxide 36 mmol/L (22.0-30.0); Globulin 2.9 g/dL (1.3-3.2); Glucose 174 mg/dl (74-100); Total Protein,Serum 5.6 g/dl (6.3-8.2)
[2021-08-14 08:47] LABS: Lymphocytes % 6 % (10-50); Monocytes % 4 % (2-9); Neutrophils % 90 % (42-76); Platelet Estimate Normal; RBC Morphology Normal; Total Cells Counted 100
--- NOTE | 2021-08-14 08:48 | HMH.ACPN2 ---
Internal Medicine - PN: Subj *Date: 08/14/21 *Time: 08:48 Interval history: Pulmonology was trying to decrease patient's propofol and he became very agitated. It had to be increased as did his FiO2. At this point he is comfortable and stable. Exam Vital signs and Labs for Last 24 Hours: Temp Pulse Resp BP Pulse Ox 97.9 F 58 L 28 H 105/52 L 91 L 08/14/21 06:00 08/14/21 08:00 08/14/21 08:00 08/14/21 08:00 08/14/21 08:00 Laboratory Results - last 24 hr 08/13/21 06:31: Total Counted 100, Neutrophils % (Manual) 91 H, Lymphocytes % (Manual) 5 L, Monocytes % (Manual) 4, Platelet Estimate Normal, RBC Morphology Normal 08/14/21 06:43: Sodium 139, Potassium 3.9, Chloride 101, Carbon Dioxide 36 H, Anion Gap 5.9, BUN 24 H, Creatinine 0.70, Estimated Creat Clear 165, Estimated GFR 116, Est GFR ( Amer) 141, Glucose 174 H, Calcium 7.6 L, Total Bilirubin 1.0, AST 73 H, ALT 46, Alkaline Phosphatase 116, Total Protein 5.6 L, Albumin 2.7 L, Globulin 2.9, Albumin/Globulin Ratio 0.9 L 08/14/21 06:43: WBC 18.5 H, RBC 4.16 L, Hgb 13.1 L, Hct 38.8 L, MCV 93.3, MCH 31.4 H, MCHC 33.7, RDW 14.6, Plt Count 267, MPV 10.6 H, Neut % (Auto) 91.8 H, Lymph % (Auto) 4.8 L, [place] % (Auto) 2.5, Eos % (Auto) 0.7, Baso % (Auto) 0.2, Neut # (Auto) 17.0 H, Lymph # (Auto) 0.9, [place] # (Auto) 0.5, Eos # (Auto) 0.1, Baso # (Auto) 0.1, Total Counted 100, Neutrophils % (Manual) 90 H, Lymphocytes % (Manual) 6 L, Monocytes % (Manual) 4, Platelet Estimate Normal, RBC Morphology Normal I & O for Last 24 hours: Intake & Output 08/11/21 08/12/21 08/13/21 08/14/21 11:59 11:59 11:59 11:59 Intake Total 1601 / 1601 600 / 600 2584 / 2916 2021 Output Total 1230 / 1230 990 / 1010 875 / 950 780 / 780 Balance 371 / 371 -390 / -410 1709 / 1966 1242 / 1242 Weight 222 lb 10.67 oz 222 lb 10.67 oz 220 lb 8 oz 221 lb 8 oz - Constitutional no acute distress - *Routine Respiratory Exam Present: patient mechanically ventilated, decreased breath sounds - *Routine Cardiovascular Exam Present: RRR - *Routine Abdominal Exam Present: soft, normoactive bowel sounds. Absent: tenderness - *Routine Extremities Exam Present: edema (trace). Absent: cyanosis, clubbing - *Routine Skin Exam Present: warm. Absent: rash - *Routine Neurological Exam sedated Assessment and Plan (1) COVID-19 Status: Acute Category: Medical Code(s): U07.1 - COVID-19 (2) Acute respiratory failure with hypoxia Status: Acute Category: Medical Code(s): J96.01 - Acute respiratory failure with hypoxia (3) Viral pneumonia Status: Acute Category: Medical Code(s): J12.9 - Viral pneumonia, unspecified (4) Hypertension Status: Acute Category: Medical Code(s): I10 - Essential (primary) hypertension (5) Cerebral palsy Status: Acute Category: Medical Code(s): G80.9 - Cerebral palsy, unspecified (6) Hyperlipidemia Status: Acute Category: Medical Code(s): E78.5 - Hyperlipidemia, unspecified (7) Hypokalemia Status: Acute Category: Medical Code(s): E87.6 - Hypokalemia - Assessment and plan all Dx Assessment and Plan for all problems:: Patient is comfortable at this time. Pulmonology to follow. Dr. Mena has ordered a blood gas this morning.
[2021-08-14 11:36] LABS: ABG Base Excess 7.2 mmol/L (-2.4-2.3); ABG Oxygen Saturation 88 % (90-100); ABG PCO2 44.5 mmhg (35.0-45.0); ABG PH 7.46 mmol/L (7.35-7.45); ABG PO2 52.5 mmhg (80-100); ABG TCO2 32.4 mmhg (23-27)
[2021-08-14 11:37] LABS: Allen's Test ACCEPTABLE; Oxygen 70 %; PEEP 14; Tidal Volume 440; Vent Rate 24
[2021-08-14 11:38] LABS: Source R RADIAL
[2021-08-14 11:39] LABS: Lactate Arterial 1.5 mmol/L (0.4-2.0)
--- NOTE | 2021-08-14 13:54 | P.PN_ITS ---
Internal Medicine - PN: Subj *Date: 08/14/21 *Time: 13:54 Interval history: Patient has an acute respiratory event this morning followed by tachypnea and hypoxic episode. Exam - Constitutional Constitutional:: Present: no acute distress, comfortable - HENMT Exam HENMT: Present: normocephalic - Eye Exam Eyes:: Present: normal appearance both eyes and related structures - Neck Exam Neck:: Present: normal visual inspection - Respiratory Exam Respiratory:: Present: respiratory distress, rales, rhonchi - Cardiovascular Exam Cardiac:: Present: S1, S2 - GI Exam GI:: Present: soft - Skin Exam Skin: Present: warm - Neurological Exam Neurological: Absent: alert, awake, normal cognition - Extremities Exam Extremities: Present: no cyanosis, no clubbing, edema Assessment and Plan (1) COVID-19 Status: Acute Category: Medical Code(s): U07.1 - COVID-19 (2) Acute respiratory failure with hypoxia Status: Acute Category: Medical Code(s): J96.01 - Acute respiratory failure with hypoxia (3) Viral pneumonia Status: Acute Category: Medical Code(s): J12.9 - Viral pneumonia, unspecified (4) Hypertension Status: Acute Category: Medical Code(s): I10 - Essential (primary) hypertension (5) Cerebral palsy Status: Acute Category: Medical Code(s): G80.9 - Cerebral palsy, unspecified (6) Hyperlipidemia Status: Acute Category: Medical Code(s): E78.5 - Hyperlipidemia, unspecified (7) Hypokalemia Status: Acute Category: Medical Code(s): E87.6 - Hypokalemia - Assessment and plan all Dx Assessment and Plan for all problems:: #Acute hypoxic respiratory failure: #COVID-19 pneumonia: 55-year-old completed vaccination for COVID-19 pneumonia no prior respiratory complaints not on any inhalers at baseline presented with respiratory distress. Low-grade fevers with a T-max of 100.6. No evidence of leukocytosis. Chest x- ray bilateral airspace disease. D-dimer elevated at 1.05 and CRP at 79. LDH at 1096 Patient was also initiated on ceftriaxone and azithromycin along with continuation of remdesivir dexamethasone and baricitinib. CTA showed bilateral diffuse groundglass opacities Patient respiratory is continued decline eventually needing intubation and mechanical ventilatory support on 08/12/2021. Plan: Intubated and sedated we will continue propofol and fentanyl. Intermittent bradycardia, closely monitor. TG WNL Worsening distress, FiO2 increased to 75%, tried to wean with post ABG PaO2 at 52. CXR unchanged, ET tube slightly high. We will follow with tracheal aspirate and nasal MRSA PCR. We will continue ceftriaxone azithromycin. We will continue remdesivir dexamethasone and barcitinib Patient become hemodynamically unstable post intubation. He is on 2 mcg of norepinephrine with MAP maintained at 65 or greater. We will continue to monitor. Afebrile. Leukocytosis slightly worsened from yesterday 17.5 to 18.5. We will closely monitor. Abdomen soft nontender. Continue tube feeds. Transaminases and bilirubin levels IMPROVING. We will continue to monitor. Renal function stable. lasix 40mg IV once - Continue mechanical ventilatory support - Continue AnalgoSedation with Propofol and Fentanyl with CPOT gal less than or euqal to 2 and RASS goal of 1 to 2 - VAP bundle Elevate head of the bed at 30 to 45 degrees Oral care with chlorhexidne GI ulcer prophylaxis - Famotidine 20mg IV BID Chemical DVT prophylaxis
--- NOTE | 2021-08-14 15:11 | PC.NURSE ---
No acute changes noted this shift, intubated with 8.0 ETT 23@lip, remains sedated with propofol and fentanyl, attempted to wean sedation some this shift patient began to thrash in bed, coughing and overbreathing ventilator, respiration increased to 35-45 and O2 saturations decreased to 80%, current vent settings AC mode, FiO2 75%, Rate 26, Peep 14, TV 440. Remains on levophed at 2mcg, perrla, HR reg, NSR per telemetry, abd soft with hypoactive bowel sounds in all quads, no BM noted this shift, FC patent and draining pale yellow urine, 1+ nonpitting edema noted to ble, peripheral pulses 2+, lung sounds diminished t/o, has had small amount of secretions this shift schilling and thick streaked with blood, patient has been turned q2h and provided oral care and suctioning, vss, no s/s of distress noted at this time.
--- NOTE | 2021-08-14 16:55 | DIET.NUTRFU ---
Pt remains sedated and ventilated at this time. Pt TF has been started. Glucose- 168, 174. Continue with current plan of care and monitor.
--- NOTE | 2021-08-14 21:47 | PC.NURSE ---
Pt continues to be intubated and sedated. Low PAW started to continuously alarm and his O2 sat decreased in 60s. 100% FiO2 button was pressed and O2 did not increased. Respirations in the 50s. Respiratory paged. His O2 was 65% with 100% button. ETT clamped and patient ventilated via ambu bag until respiratory arrived. His eyes then opened; therefore, sedation was increased. Have since started to wean his sedation but his FiO2 is still at 100%. He is febrile. Rectal suppository given. HOB elevated 30degrees with ambu bag at bedside. He is being turned and repositioned q 2 hours. Oral cavity is dry and oral care is being provided. Heel protectors in place. Removed and reapplied with no skin break down noted. He continues in airborne and contact precautions.
[2021-08-15] VITALS (36 sets, daily range): BP systolic 92–122; BP diastolic 49–74; PULSE 51–97; RESP 2–32; TEMP 36.4–37.6; O2SAT 69–100; BMI 31.4
--- NOTE | 2021-08-15 04:20 | PC.NURSE ---
Several attempts made to weight pt and unable to get bed to weigh.
[2021-08-15 05:12] LABS: ABG Base Excess 5.8 mmol/L (-2.4-2.3); ABG HCO3 30.9 mmhg (22.0-26.0); ABG Oxygen Saturation 69 % (90-100); ABG PH 7.39 mmol/L (7.35-7.45); ABG TCO2 32.5 mmhg (23-27)
--- NOTE | 2021-08-15 05:24 | PC.NURSE ---
Attempted to contact pt's mother Zane Nelson at this time. No answer.
[2021-08-15 05:29] LABS: Allen's Test Patient Unable
[2021-08-15 05:30] LABS: ABG PCO2 52.5 mmhg (35.0-45.0); Source Right Radial
--- NOTE | 2021-08-15 06:00 | XR_ITS ---
PROCEDURE INFORMATION: Exam: XR Chest Exam date and time: 08/15/2021 6:00 AM Age: 55 years old Clinical indication: Shortness of breath and other: Low o2 sats; Patient HX: Covid, intubated, low o2 sats declining; Additional info: Daily while intubated TECHNIQUE: Imaging protocol: XR of the chest. Views: 1 view. COMPARISON: CR XR CHEST PORTABLE 08/14/2021 4:50 AM FINDINGS: Tubes, catheters and devices: Endotracheal tube terminates approximately 5 cm above the pamela. NG tube passes into stomach. Lungs: Mild interval worsening confluent bilateral airspace opacities. Pleural spaces: Unremarkable. No pleural effusion. No pneumothorax. Heart/Mediastinum: Unremarkable. No cardiomegaly. Bones/joints: Unremarkable. IMPRESSION: 1. Endotracheal tube terminates approximately 5 cm above the pamela. 2. Mild interval worsening of multilobar pneumonia.
--- NOTE | 2021-08-15 06:06 | PC.NURSE ---
Pt's mother called back but doctor beeped in. Had to end phone call. Have attempted to contact her twice.
[2021-08-15 07:18] LABS: Basophils # 0.1 K/mm3 (0-0.2); Basophils % 0.5 % (0.1-2.0); Eosinophils # 0.5 K/mm3 (0.0-0.4); Eosinophils % 2.2 % (0.1-12.0); Hematocrit 42.4 % (42.0-52.0); Hemoglobin 13.9 g/dL (14.1-18.0); Lymphocytes # 0.9 K/mm3 (0.7-4.5); Lymphocytes % 4.4 % (10-50); Mean Corpuscular HGB Conc 32.9 g/dL (31.8-35.4); Mean Corpuscular Hemoglobin 31.2 pg (27.0-31.2); Mean Corpuscular Volume 95.1 fl (80-94); Mean Platelet Volume 10.8 fl (7.4-10.4); Monocytes # 0.2 K/mm3 (0.1-1.0); Monocytes % 1.1 % (1.7-9.3); Neutrophils # 19.1 K/mm3 (1.8-7.8); Neutrophils % 91.6 % (37.0-80.0); Platelet Count 285 K/mm3 (142-424); Red Blood Count 4.46 M/mm3 (4.60-6.20); White Blood Count 20.8 K/mm3 (4.8-10.8)
[2021-08-15 07:20] LABS: MANUAL DIFFERENTIAL MANUAL DIFFERENTIAL (MANUAL DIFF)
[2021-08-15 07:40] LABS: Chloride 101 mmol/L (98-107)
[2021-08-15 07:41] LABS: Potassium 4.1 mmoL/L (3.5-5.1); Sodium 138 mmol/L (136-145)
[2021-08-15 07:43] LABS: Alanine Aminotransferase 68 U/L (12-78); Alkaline Phosphatase 123 U/L (38-126); Anion Gap 7.1 mEq/L (5-15); Aspartate Amino Transferase 139 U/L (17-59); Bilirubin,Total 2.2 mg/dl (0.2-1.3); Blood Urea Nitrogen 26 mg/dl (9-20); Carbon Dioxide 34 mmol/L (22.0-30.0); Creatinine Clearance Estimated 145 mL/min (50-200); Estimated Glomerular Filt Rate 100 ml/min (>60); GFR (African American) 121 ML/MIN (>60)
[2021-08-15 07:44] LABS: Albumin Level 2.8 g/dl (3.5-5.0); Albumin/Globulin Ratio 0.9 (1.1-1.8); Calcium 7.5 mg/dl (8.4-10.2); Globulin 3.1 g/dL (1.3-3.2); Glucose 131 mg/dl (74-100); Total Protein,Serum 5.9 g/dl (6.3-8.2); Triglycerides 337 mg/dl (30-150)
[2021-08-15 07:45] LABS: Eosinophils % 2 % (0-3); Lymphocytes % 4 % (10-50); Macrocytosis 1+; Monocytes % 1 % (2-9); Neutrophils % 93 % (42-76); Platelet Estimate Normal; Total Cells Counted 100
--- NOTE | 2021-08-15 09:06 | HMH.ACPN2 ---
Internal Medicine - PN: Subj *Date: 08/15/21 *Time: 09:06 Interval history: Patient with some hypoxia overnight, was given IV Lasix. Exam Vital signs and Labs for Last 24 Hours: Temp Pulse Resp BP Pulse Ox 99.0 F 61 3 L 104/56 L 98 08/15/21 05:49 08/15/21 06:45 08/15/21 06:45 08/15/21 06:35 08/15/21 06:45 Laboratory Results - last 24 hr 08/14/21 06:00: ABG Lactate 1.5 08/14/21 06:00: Specimen Source R radial, O2 % 70, ABG pH 7.46 H, ABG pCO2 44.5, ABG pO2 52.5 L, ABG HCO3 31.0 H, ABG Total CO2 32.4 H, ABG O2 Saturation 88 L, ABG Base Excess 7.2 H, Teto Test Acceptable, Vent Rate 24, Tidal Volume 440, PEEP 14 08/15/21 06:00: Specimen Source Right radial, O2 % 100 ambu, ABG pH 7.39, ABG pCO2 52.5 H, ABG pO2 35.0 L, ABG HCO3 30.9 H, ABG Total CO2 32.5 H, ABG O2 Saturation 69 L*, ABG Base Excess 5.8 H, Teto Test Patient unable 08/15/21 06:45: Sodium 138, Potassium 4.1, Chloride 101, Carbon Dioxide 34 H, Anion Gap 7.1, BUN 26 H, Creatinine 0.80, Estimated Creat Clear 145, Estimated GFR 100, Est GFR ( Amer) 121, Glucose 131 H, Calcium 7.5 L, Total Bilirubin 2.2 H, AST 139 H D, ALT 68 D, Alkaline Phosphatase 123, Total Protein 5.9 L, Albumin 2.8 L, Globulin 3.1, Albumin/Globulin Ratio 0.9 L, Triglycerides 337 H 08/15/21 06:45: WBC 20.8 H*, RBC 4.46 L, Hgb 13.9 L, Hct 42.4, MCV 95.1 H, MCH 31.2, MCHC 32.9, RDW 15.0, Plt Count 285, MPV 10.8 H, Neut % (Auto) 91.6 H, Lymph % (Auto) 4.4 L, [place] % (Auto) 1.1 L, Eos % (Auto) 2.2, Baso % (Auto) 0.5, Neut # (Auto) 19.1 H, Lymph # (Auto) 0.9, [place] # (Auto) 0.2, Eos # (Auto) 0.5 H, Baso # (Auto) 0.1, Total Counted 100, Neutrophils % (Manual) 93 H, Lymphocytes % (Manual) 4 L, Monocytes % (Manual) 1 L, Eosinophils % (Manual) 2, Platelet Estimate Normal, Macrocytosis 1+ I & O for Last 24 hours: Intake & Output 08/12/21 08/13/21 08/14/21 08/15/21 23:59 23:59 23:59 23:59 Intake Total 2385 / 2433 1451 / 1494 2671 / 2671 1279 / 1279 Output Total 1225 / 1275 895 / 935 1999 / 2059 835 / 835 Balance 1160 / 1158 556 / 559 671 / 611 444 / 444 Weight 222 lb 10.67 oz 220 lb 7.996 oz 221 lb 8 oz 219 lb 9.6 oz Microbiology Reports for the Last 24 Hours: Microbiology 08/12/21 08:12 Sputum - Endotracheal Tube Aspirate Gram Stain - Final 08/12/21 08:12 Sputum - Endotracheal Tube Aspirate Sputum Culture - Preliminary - Constitutional Comments: sedated, intubated - *Routine Respiratory Exam Present: rales, rhonchi, crackles - *Routine Cardiovascular Exam Present: RRR Assessment and Plan (1) COVID-19 Status: Acute Category: Medical Code(s): U07.1 - COVID-19 (2) Acute respiratory failure with hypoxia Status: Acute Category: Medical Code(s): J96.01 - Acute respiratory failure with hypoxia (3) Viral pneumonia Status: Acute Category: Medical Code(s): J12.9 - Viral pneumonia, unspecified (4) Hypertension Status: Acute Category: Medical Code(s): I10 - Essential (primary) hypertension (5) Cerebral palsy Status: Acute Category: Medical Code(s): G80.9 - Cerebral palsy, unspecified (6) Hyperlipidemia Status: Acute Category: Medical Code(s): E78.5 - Hyperlipidemia, unspecified (7) Hypokalemia Status: Acute Category: Medical Code(s): E87.6 - Hypokalemia - Assessment and plan all Dx Assessment and Plan for all problems:: Patient continues to decline, will make antibiotic changes today to Vanc and Cefepime. Cont. Levophed drip, tube feedings and ventilator support.
--- NOTE | 2021-08-15 09:34 | HMH.PHACONS ---
- Pharmacy Consult Date: 08/15/21 Time: 09:34 Referring provider: DR. ARIZMENDI Reason for Consult:: VANCOMYCIN DOSING CONSULT Allergies and ADEs:: Allergies Allergy/AdvReac Type Severity Reaction Status Date / Time Tijyvlm-Zdw-Axy Reductase Allergy Verified 08/08/21 14:33 Inhibitor Home Medications:: Home Medications Medication Instructions Recorded Confirmed Type Albuterol Sulfate [Albuterol 2 puffs IH Q6HP PRN 30 Days #1 each 08/07/21 08/08/21 Rx Sulfate Hfa] Benzonatate [Benzonatate 100mg 100 mg PO TIDP PRN #30 cap 08/07/21 08/08/21 Rx cap] Ezetimibe [Zetia] 10 mg PO DAILY 08/07/21 08/08/21 History Losartan Potassium [Cozaar 100mg 100 mg PO DAILY 08/07/21 08/08/21 History Tablets] hydroCHLOROthiazide [HCTZ 25mg 25 mg PO DAILY 08/07/21 08/08/21 History tab] Azithromycin 250 mg PO DAILY 08/08/21 08/08/21 History Fish Oil/Dha/Epa [Fish Oil 1,200 1 each PO DAILY 08/08/21 08/08/21 History mg Fish Oil] dexAMETHasone [Decadron] 6 mg PO DAILY 08/08/21 08/08/21 History Height: 1.78 m Weight: 99.609 kg Laboratory Results:: Laboratory Results - last 24 hr 08/14/21 06:00: ABG Lactate 1.5 08/14/21 06:00: Specimen Source R radial, O2 % 70, ABG pH 7.46 H, ABG pCO2 44.5, ABG pO2 52.5 L, ABG HCO3 31.0 H, ABG Total CO2 32.4 H, ABG O2 Saturation 88 L, ABG Base Excess 7.2 H, Teto Test Acceptable, Vent Rate 24, Tidal Volume 440, PEEP 14 08/15/21 06:00: Specimen Source Right radial, O2 % 100 ambu, ABG pH 7.39, ABG pCO2 52.5 H, ABG pO2 35.0 L, ABG HCO3 30.9 H, ABG Total CO2 32.5 H, ABG O2 Saturation 69 L*, ABG Base Excess 5.8 H, Teto Test Patient unable 08/15/21 06:45: Sodium 138, Potassium 4.1, Chloride 101, Carbon Dioxide 34 H, Anion Gap 7.1, BUN 26 H, Creatinine 0.80, Estimated Creat Clear 145, Estimated GFR 100, Est GFR ( Amer) 121, Glucose 131 H, Calcium 7.5 L, Total Bilirubin 2.2 H, AST 139 H D, ALT 68 D, Alkaline Phosphatase 123, Total Protein 5.9 L, Albumin 2.8 L, Globulin 3.1, Albumin/Globulin Ratio 0.9 L, Triglycerides 337 H 08/15/21 06:45: WBC 20.8 H*, RBC 4.46 L, Hgb 13.9 L, Hct 42.4, MCV 95.1 H, MCH 31.2, MCHC 32.9, RDW 15.0, Plt Count 285, MPV 10.8 H, Neut % (Auto) 91.6 H, Lymph % (Auto) 4.4 L, [place] % (Auto) 1.1 L, Eos % (Auto) 2.2, Baso % (Auto) 0.5, Neut # (Auto) 19.1 H, Lymph # (Auto) 0.9, [place] # (Auto) 0.2, Eos # (Auto) 0.5 H, Baso # (Auto) 0.1, Total Counted 100, Neutrophils % (Manual) 93 H, Lymphocytes % (Manual) 4 L, Monocytes % (Manual) 1 L, Eosinophils % (Manual) 2, Platelet Estimate Normal, Macrocytosis 1+ Medical History: Reports:: Hyperlipidemia, Hypertension Denies:: Cancer, Diabetes Mellitus Type 1, Diabetes Mellitus Type 2, MRSA Assessment and Plan (1) COVID-19 Status: Acute Category: Medical Code(s): U07.1 - COVID-19 (2) Acute respiratory failure with hypoxia Status: Acute Category: Medical Code(s): J96.01 - Acute respiratory failure with hypoxia (3) Viral pneumonia Status: Acute Category: Medical Code(s): J12.9 - Viral pneumonia, unspecified (4) Hypertension Status: Acute Category: Medical Code(s): I10 - Essential (primary) hypertension (5) Cerebral palsy Status: Acute Category: Medical Code(s): G80.9 - Cerebral palsy, unspecified (6) Hyperlipidemia Status: Acute Category: Medical Code(s): E78.5 - Hyperlipidemia, unspecified (7) Hypokalemia Status: Acute Category: Medical Code(s): E87.6 - Hypokalemia - Assessment and plan all Dx Assessment and Plan for all problems:: Pharmacokinetic dosing service Objective: Age: 55 yo Serum creatinine: 0.8 mg/dL Height: 70.1 Inches Weight (kg): 99.609 Diagnosis: WORSENING COVID PNA Assessment: IBW (kg): 73.23 Dosing wt(kg): 99.609 Estimated Creatinine clearance (ml/min): 105.5 CRCL method: Cockcroft and Gault using ibw(default). Drug selected: Van
--- NOTE | 2021-08-15 10:00 | PC.NURSE ---
Addendum entered by Iza Lagos RN 08/15/21 12:57: Late entry: @ 0800 assessment, Levo gtt found to be at 8mcg/min Original Note: Levo gtt titrated to 6mcg/min at this time
--- NOTE | 2021-08-15 12:39 | PC.NURSE ---
BP of 117/61. Levo gtt titrated to 4mcg/min at this time.
--- NOTE | 2021-08-15 14:20 | PC.NURSE ---
Propofol titrated to 60mcg/min at this time
--- NOTE | 2021-08-15 15:20 | PC.NURSE ---
BP 108/56. Levo gtt decreased to 2mcg/min
--- NOTE | 2021-08-15 16:41 | PC.NURSE ---
Tube feed rate increased to goal of 50mL/hr. Residuals this shift are as follows: 0800- 50 1200- 30 1600- 30
--- NOTE | 2021-08-15 17:12 | PC.NURSE ---
Fentanyl gtt titrated down to 100 mcg/min at this time. BP 109/57- Levo gtt put on standby at this time, will continue to monitor
--- NOTE | 2021-08-15 17:28 | PC.NURSE ---
Current vent settings: PEEP 16, FiO2 90%, Rate 26, and volume of 440. Pt has been a q2h turn, suctioning performed as needed, and oral care q2h. [place] cath draining cloudy dark yellow/brown urine. Generalized non-pitting edema noted t/o. Hypoactive bowel sounds, no BM noted this shift. Head at 30 degrees, heels elevated and hell protectors in place. Pt's mother has been updated by ROWAN Martínez this shift on POC. No other acute changes or complaints, will continue to monitor.
[2021-08-16] VITALS (32 sets, daily range): BP systolic 88–118; BP diastolic 49–72; PULSE 48–106; RESP 26–36; TEMP 36.4–36.8; O2SAT 70–100; BMI 32.8; BMI 32.5
--- NOTE | 2021-08-16 06:00 | XR_ITS ---
PROCEDURE INFORMATION: Exam: XR Chest Exam date and time: 08/16/2021 6:00 AM Age: 55 years old Clinical indication: Device placement; Ett placement (vent status); Additional info: Daily while intubated TECHNIQUE: Imaging protocol: XR of the chest. Views: 1 view. COMPARISON: CR XR CHEST PORTABLE 08/15/2021 4:53 AM FINDINGS: Tubes, catheters and devices: Endotracheal tube terminates approximately 6.3 cm above the pamela. NG tube passes into the stomach. Lungs: Similar bilateral airspace opacities. Pleural spaces: Unremarkable. No pleural effusion. No pneumothorax. Heart/Mediastinum: Unremarkable. No cardiomegaly. Bones/joints: Unremarkable. IMPRESSION: 1. Endotracheal tube terminates approximately 6.3 cm above the pamela. 2. Similar bilateral airspace opacities, which may reflect multilobar pneumonia and/or ARDS.
[2021-08-16 07:34] LABS: Basophils # 0.1 K/mm3 (0-0.2); Basophils % 0.4 % (0.1-2.0); Eosinophils # 0.1 K/mm3 (0.0-0.4); Eosinophils % 0.3 % (0.1-12.0); Lymphocytes # 0.8 K/mm3 (0.7-4.5); Mean Corpuscular HGB Conc 32.4 g/dL (31.8-35.4); Mean Corpuscular Hemoglobin 31.3 pg (27.0-31.2); Mean Corpuscular Volume 96.8 fl (80-94); Mean Platelet Volume 10.5 fl (7.4-10.4); Monocytes # 0.4 K/mm3 (0.1-1.0); Monocytes % 2.5 % (1.7-9.3); Neutrophils # 13.8 K/mm3 (1.8-7.8); Neutrophils % 91.9 % (37.0-80.0); Platelet Count 235 K/mm3 (142-424); Red Blood Count 3.62 M/mm3 (4.60-6.20); Red Cell Distribution Width 14.4 % (11.5-17.5)
[2021-08-16 07:53] LABS: Chloride 100 mmol/L (98-107); Sodium 136 mmol/L (136-145)
[2021-08-16 07:54] LABS: Potassium 4.9 mmoL/L (3.5-5.1)
[2021-08-16 07:56] LABS: Alanine Aminotransferase 51 U/L (12-78); Albumin Level 2.4 g/dl (3.5-5.0); Albumin/Globulin Ratio 0.8 (1.1-1.8); Alkaline Phosphatase 99 U/L (38-126); Anion Gap 4.9 mEq/L (5-15); Aspartate Amino Transferase 82 U/L (17-59); Bilirubin,Total 0.8 mg/dl (0.2-1.3); Blood Urea Nitrogen 25 mg/dl (9-20); Carbon Dioxide 36 mmol/L (22.0-30.0); Creatinine Clearance Estimated 171 mL/min (50-200); Estimated Glomerular Filt Rate 116 ml/min (>60); GFR (African American) 141 ML/MIN (>60); Globulin 3.1 g/dL (1.3-3.2); Total Protein,Serum 5.5 g/dl (6.3-8.2)
[2021-08-16 07:57] LABS: Calcium 7.4 mg/dl (8.4-10.2); Glucose 204 mg/dl (74-100); Hemoglobin 11.3 g/dL (14.1-18.0); MANUAL DIFFERENTIAL MANUAL DIFFERENTIAL (MANUAL DIFF)
[2021-08-16 08:02] LABS: Lactate Arterial 1.3 mmol/L (0.4-2.0)
[2021-08-16 08:04] LABS: ABG Base Excess 5.5 mmol/L (-2.4-2.3); ABG HCO3 30.3 mmhg (22.0-26.0); ABG Oxygen Saturation 97 % (90-100); ABG TCO2 31.9 mmhg (23-27)
[2021-08-16 08:05] LABS: Allen's Test Patient Unable; Oxygen 90 %; PEEP 16; Source Right Radial; Tidal Volume 440; Vent Rate 26
[2021-08-16 08:15] LABS: ABG PCO2 50.4 mmhg (35.0-45.0)
--- NOTE | 2021-08-16 08:16 | PC.NURSE ---
Critical CO2 reported by Mathieu Cruz RT- MD Blanca notified at this time
[2021-08-16 08:51] LABS: Lymphocytes % 15 % (10-50); Monocytes % 3 % (2-9); Neutrophils % 82 % (42-76); Platelet Estimate Normal; RBC Morphology Normal; Total Cells Counted 100
--- NOTE | 2021-08-16 09:43 | PC.NURSE ---
Pt's ET tube was 22 at the lip, advanced tube to 24 at the lip per Dr Blanca
--- NOTE | 2021-08-16 10:56 | PC.NURSE ---
propofol titrated to 50mcg/min @ this time
--- NOTE | 2021-08-16 12:08 | PC.NURSE ---
Fentanyl titrated to 75mcg/min @ this time
--- NOTE | 2021-08-16 13:35 | HMH.ACPN2 ---
Internal Medicine - PN: Subj *Date: 08/16/21 *Time: 13:35 Interval history: He remains on the ventilator. Yesterday he required increasing FiO2 to 90 and 95% but now he is down to 70%. At one point some Lasix seemed to help his status. His antibiotics have been switched. He is not on vancomycin now. His white count has declined somewhat. His clinical status seems stable. He is moving air bilaterally. He is only a trace of leg edema. He opens his eyes when I am examining him. He does not seem to be receiving an excessive amount of total fluids. He is off Levophed at this point. Exam Vital signs and Labs for Last 24 Hours: Temp Pulse Resp BP Pulse Ox 97.8 F 63 31 H 92/54 L 96 08/16/21 12:00 08/16/21 13:00 08/16/21 13:00 08/16/21 13:00 08/16/21 13:00 Laboratory Results - last 24 hr 08/16/21 06:00: ABG Lactate 1.3 08/16/21 06:00: Specimen Source Right radial, O2 % 90, ABG pH 7.40, ABG pCO2 50.4 H, ABG pO2 89.0, ABG HCO3 30.3 H, ABG Total CO2 31.9 H, ABG O2 Saturation 97, ABG Base Excess 5.5 H, Teto Test Patient unable, Vent Rate 26, Tidal Volume 440, PEEP 16 08/16/21 06:43: Sodium 136, Potassium 4.9, Chloride 100, Carbon Dioxide 36 H, Anion Gap 4.9 L, BUN 25 H, Creatinine 0.70, Estimated Creat Clear 171, Estimated GFR 116, Est GFR ( Amer) 141, Glucose 204 H D, Calcium 7.4 L, Total Bilirubin 0.8, AST 82 H D, ALT 51, Alkaline Phosphatase 99, Total Protein 5.5 L, Albumin 2.4 L D, Globulin 3.1, Albumin/Globulin Ratio 0.8 L 08/16/21 06:43: WBC 15.0 H D, RBC 3.62 L, Hgb 11.3 L D, Hct 35.0 L, MCV 96.8 H, MCH 31.3 H, MCHC 32.4, RDW 14.4, Plt Count 235, MPV 10.5 H, Neut % (Auto) 91.9 H, Lymph % (Auto) 5.0 L, [place] % (Auto) 2.5, Eos % (Auto) 0.3, Baso % (Auto) 0.4, Neut # (Auto) 13.8 H, Lymph # (Auto) 0.8, [place] # (Auto) 0.4, Eos # (Auto) 0.1, Baso # (Auto) 0.1, Total Counted 100, Neutrophils % (Manual) 82 H, Lymphocytes % (Manual) 15, Monocytes % (Manual) 3, Platelet Estimate Normal, RBC Morphology Normal I & O for Last 24 hours: Intake & Output 08/14/21 08/15/21 08/16/21 08/17/21 11:59 11:59 11:59 11:59 Intake Total 2241 / 2673 2601 / 2601 4122 / 4122 Output Total 880 / 920 2815 / 3040 1375 / 1470 95 / 95 Balance 1361 / 1753 -214 / -439 2747 / 2652 -95 / -95 Weight 221 lb 8 oz 219 lb 9.6 oz 226 lb 14.4 oz Microbiology Reports for the Last 24 Hours: Microbiology 08/13/21 15:15 Nose - Nasal MRSA Culture - Final Negative 08/12/21 08:12 Sputum - Endotracheal Tube Aspirate Gram Stain - Final 08/12/21 08:12 Sputum - Endotracheal Tube Aspirate Sputum Culture - Final Yeast 08/15/21 10:30 Lung,Right Lower Lobe Gram Stain - Final - Constitutional no acute distress (On ventilator) - *Routine HEENT Exam Head: Present: normocephalic Eye: Present: EOMI, PERRL ENT: Present: mucous membranes moist - *Routine Neck Exam Present: supple. Absent: lymphadenopathy - *Routine Respiratory Exam Present: patient mechanically ventilated, decreased breath sounds (But moving air). Absent: respiratory distress - *Routine Cardiovascular Exam Present: RRR - *Routine Abdominal Exam Present: soft, normoactive bowel sounds. Absent: tenderness - *Routine Extremities Exam Present: edema (Only trace). Absent: cyanosis, clubbing - *Routine Skin Exam Present: intact, warm. Absent: rash - *Routine Neurological Exam Absent: alert (Under sedation but does respond) Assessment and Plan (1) COVID-19 Status: Acute Category: Medical Code(s): U07.1 - COVID-19 (2) Acute respiratory failure with hypoxia Status: Acute Category: Medical Code(s): J96.01 - Acute respiratory failure with hypoxia (3) Viral pneumonia Status: Acute Category: Medical Code(s): J12.9 - Viral pneumonia, unspecified (4) Hypertension Status: Acute Category: Medical Code(s): I10 - Essential (primary) hypertension (5) Cerebral palsy Status: Acut
--- NOTE | 2021-08-16 18:40 | PC.NURSE ---
Current vent settings fio2 75% tidal volume 440 rate 26 PEEP 16 current gtt rates: propofol 60, fentanyl 100, levo remains on standby. Pt has been a q2h turn, in-line suctioned when needed, and has had q2h and PRN oral care. Pt has remained afebrile. Urine is cloudy and dark yellow. Pt's mother has been updated on POC today. No other acute changes, will continue to monitor.
[2021-08-17] VITALS (31 sets, daily range): BP systolic 82–117; BP diastolic 44–71; PULSE 50–95; RESP 26–33; TEMP 36.7–37.5; O2SAT 59–100; BMI 32.1
--- NOTE | 2021-08-17 06:00 | XR_ITS ---
PROCEDURE INFORMATION: Exam: XR Chest Exam date and time: 08/17/2021 6:00 AM Age: 56 years old Clinical indication: Device placement; Ett placement (vent status); Additional info: Daily while intubated TECHNIQUE: Imaging protocol: XR of the chest. Views: 1 view. COMPARISON: CR XR CHEST PORTABLE 08/16/2021 5:31 AM FINDINGS: Tubes, catheters and devices: The ET tube and nasogastric tube are unchanged. Lungs: Diffuse infiltrates are present bilaterally unchanged since the prior study. Pleural spaces: Unremarkable. No pleural effusion. No pneumothorax. Heart/Mediastinum: Unremarkable. No cardiomegaly. Bones/joints: Unremarkable. IMPRESSION: Stable bilateral infiltrates.
[2021-08-17 06:11] LABS: Basophils # 0.1 K/mm3 (0-0.2); Basophils % 0.4 % (0.1-2.0); Eosinophils # 0.3 K/mm3 (0.0-0.4); Eosinophils % 1.4 % (0.1-12.0); Hematocrit 32.9 % (42.0-52.0); Hemoglobin 11.1 g/dL (14.1-18.0); Lymphocytes # 1.2 K/mm3 (0.7-4.5); Lymphocytes % 5.9 % (10-50); Mean Corpuscular HGB Conc 33.8 g/dL (31.8-35.4); Mean Corpuscular Hemoglobin 31.7 pg (27.0-31.2); Mean Corpuscular Volume 93.6 fl (80-94); Mean Platelet Volume 10.7 fl (7.4-10.4); Monocytes # 0.3 K/mm3 (0.1-1.0); Monocytes % 1.6 % (1.7-9.3); Neutrophils # 17.9 K/mm3 (1.8-7.8); Neutrophils % 90.7 % (37.0-80.0); Platelet Count 286 K/mm3 (142-424); Red Blood Count 3.52 M/mm3 (4.60-6.20); Red Cell Distribution Width 14.7 % (11.5-17.5); White Blood Count 19.7 K/mm3 (4.8-10.8)
[2021-08-17 06:13] LABS: MANUAL DIFFERENTIAL MANUAL DIFFERENTIAL (MANUAL DIFF)
[2021-08-17 06:19] LABS: Chloride 100 mmol/L (98-107); Sodium 135 mmol/L (136-145)
[2021-08-17 06:22] LABS: Alanine Aminotransferase 48 U/L (12-78); Alkaline Phosphatase 110 U/L (38-126); Aspartate Amino Transferase 75 U/L (17-59); Bilirubin,Total 0.7 mg/dl (0.2-1.3); Blood Urea Nitrogen 28 mg/dl (9-20); Carbon Dioxide 36 mmol/L (22.0-30.0); Creatinine Clearance Estimated 145 mL/min (50-200); Estimated Glomerular Filt Rate 99 ml/min (>60); GFR (African American) 120 ML/MIN (>60)
[2021-08-17 06:23] LABS: Albumin Level 2.5 g/dl (3.5-5.0); Albumin/Globulin Ratio 0.8 (1.1-1.8); Calcium 7.6 mg/dl (8.4-10.2); Globulin 3.3 g/dL (1.3-3.2); Glucose 113 mg/dl (74-100); Total Protein,Serum 5.8 g/dl (6.3-8.2)
[2021-08-17 06:41] LABS: Lymphocytes % 11 % (10-50); Neutrophils % 86 % (42-76); Platelet Estimate Normal; RBC Morphology Normal; Total Cells Counted 100
[2021-08-17 07:34] LABS: ABG Base Excess 5.3 mmol/L (-2.4-2.3); ABG HCO3 29.7 mmhg (22.0-26.0); ABG Oxygen Saturation 97 % (90-100); ABG PCO2 46.9 mmhg (35.0-45.0); ABG PH 7.42 mmol/L (7.35-7.45); ABG PO2 90.2 mmhg (80-100); ABG TCO2 31.2 mmhg (23-27)
[2021-08-17 07:39] LABS: Allen's Test Patient Unable; Oxygen 70 %; PEEP 16; Source Right Radial; Tidal Volume 440; Vent Rate 26
--- NOTE | 2021-08-17 08:38 | HMH.ACPN2 ---
Internal Medicine - PN: Subj *Date: 08/17/21 *Time: 08:38 Interval history: Patient had a stable night. He remains off of Levophed. Continues sedated and on ventilator. Vent settings are: Tidal volume 440, respiratory rate is 26, PEEP at 16, and FiO2 is at 70%.. ABGs this morning reveal pH of 7.42. PCO2 of 46.9 PO2 of 90.2 and bicarb of 29.7. BC shows elevated white count at 19,700 with a hemoglobin of 11.1 and hematocrit of 32.9. Chemistries show sodium of 135 and potassium of 5 BUN is 28 and creatinine 0.8. AST is slightly elevated at 75 and otherwise liver function studies are satisfactory. Blood cultures are pending. As is bronchial aspirate culture. Chest x-ray this a.m. reveals stable bilateral infiltrates. Patient is tolerating tube feedings. He continues with Hinton catheter to bedside drainage. Exam Vital signs and Labs for Last 24 Hours: Temp Pulse Resp BP Pulse Ox 99.5 F 86 31 H 110/66 98 08/17/21 08:00 08/17/21 08:00 08/17/21 08:00 08/17/21 08:00 08/17/21 08:00 Laboratory Results - last 24 hr 08/16/21 06:43: Total Counted 100, Neutrophils % (Manual) 82 H, Lymphocytes % (Manual) 15, Monocytes % (Manual) 3, Platelet Estimate Normal, RBC Morphology Normal 08/17/21 05:30: Sodium 135 L, Potassium 5.0, Chloride 100, Carbon Dioxide 36 H, Anion Gap 4.0 L, BUN 28 H, Creatinine 0.80, Estimated Creat Clear 145, Estimated GFR 99, Est GFR ( Amer) 120, Glucose 113 H D, Calcium 7.6 L, Total Bilirubin 0.7, AST 75 H, ALT 48, Alkaline Phosphatase 110, Total Protein 5.8 L, Albumin 2.5 L, Globulin 3.3 H, Albumin/Globulin Ratio 0.8 L 08/17/21 05:30: WBC 19.7 H D, RBC 3.52 L, Hgb 11.1 L, Hct 32.9 L, MCV 93.6, MCH 31.7 H, MCHC 33.8, RDW 14.7, Plt Count 286, MPV 10.7 H, Neut % (Auto) 90.7 H, Lymph % (Auto) 5.9 L, [place] % (Auto) 1.6 L, Eos % (Auto) 1.4, Baso % (Auto) 0.4, Neut # (Auto) 17.9 H, Lymph # (Auto) 1.2, [place] # (Auto) 0.3, Eos # (Auto) 0.3, Baso # (Auto) 0.1, Total Counted 100, Neutrophils % (Manual) 86 H, Band Neutrophils % 3.0, Lymphocytes % (Manual) 11, Platelet Estimate Normal, RBC Morphology Normal 08/17/21 06:00: Specimen Source Right radial, O2 % 70, ABG pH 7.42, ABG pCO2 46.9 H, ABG pO2 90.2, ABG HCO3 29.7 H, ABG Total CO2 31.2 H, ABG O2 Saturation 97, ABG Base Excess 5.3 H, Teto Test Patient unable, Vent Rate 26, Tidal Volume 440, PEEP 16 I & O for Last 24 hours: Intake & Output 08/14/21 08/15/21 08/16/21 08/17/21 11:59 11:59 11:59 11:59 Intake Total 2241 / 2673 2601 / 2601 4122 / 4122 3255 / 3255 Output Total 880 / 920 2815 / 3040 1375 / 1470 765 / 765 Balance 1361 / 1753 -214 / -439 2747 / 2652 2490 / 2490 Weight 221 lb 8 oz 219 lb 9.6 oz 226 lb 14.4 oz 224 lb 13.944 oz Microbiology Reports for the Last 24 Hours: Microbiology 08/13/21 15:15 Nose - Nasal MRSA Culture - Final Negative 08/12/21 08:12 Sputum - Endotracheal Tube Aspirate Gram Stain - Final 08/12/21 08:12 Sputum - Endotracheal Tube Aspirate Sputum Culture - Final Yeast - Constitutional no acute distress Comments: Sedated - *Routine Respiratory Exam Present: rhonchi (Some scattered rhonchi posteriorly) - *Routine Cardiovascular Exam Present: RRR - *Routine Abdominal Exam Present: soft, normoactive bowel sounds Comments: Hinton to bedside drainage. Ongoing tube feedings - *Routine Extremities Exam Absent: edema, calf tenderness - *Routine Neurological Exam Sedated Assessment and Plan (1) COVID-19 Status: Acute Category: Medical Code(s): U07.1 - COVID-19 (2) Acute respiratory failure with hypoxia Status: Acute Category: Medical Code(s): J96.01 - Acute respiratory failure with hypoxia (3) Viral pneumonia Status: Acute Category: Medical Code(s): J12.9 - Viral pneumonia, unspecified (4) Hypertension Status: Acute Category: Medical Code(s): I10 - Essential (primary) hypertension (5) Cerebral palsy Stat
--- NOTE | 2021-08-17 11:38 | HMH.PULMPN ---
Internal Medicine - PN: Subj *Date: 08/17/21 *Time: 11:38 Interval history: Patient respiratory status has been stable and improving in the last 24 hours. Exam - HENMT Exam HENMT: Present: normocephalic, atraumatic - Eye Exam Eyes:: Present: normal appearance both eyes and related structures - Respiratory Exam Respiratory:: Present: respiratory distress, rales - Cardiovascular Exam Cardiac:: Present: S1, S2 - GI Exam GI:: Present: soft, no hepatosplenomegaly - Skin Exam Skin: Present: warm - Neurological Exam Neurological: Absent: alert, awake, normal cognition Intubated and sedated - Extremities Exam Extremities: Present: no cyanosis, no clubbing, edema Assessment and Plan (1) COVID-19 Status: Acute Category: Medical Code(s): U07.1 - COVID-19 (2) Acute respiratory failure with hypoxia Status: Acute Category: Medical Code(s): J96.01 - Acute respiratory failure with hypoxia (3) Viral pneumonia Status: Acute Category: Medical Code(s): J12.9 - Viral pneumonia, unspecified (4) Hypertension Status: Acute Category: Medical Code(s): I10 - Essential (primary) hypertension (5) Cerebral palsy Status: Acute Category: Medical Code(s): G80.9 - Cerebral palsy, unspecified (6) Hyperlipidemia Status: Acute Category: Medical Code(s): E78.5 - Hyperlipidemia, unspecified (7) Hypokalemia Status: Acute Category: Medical Code(s): E87.6 - Hypokalemia - Assessment and plan all Dx Assessment and Plan for all problems:: #Acute hypoxic respiratory failure: #COVID-19 pneumonia: 55-year-old completed vaccination for COVID-19 pneumonia no prior respiratory complaints not on any inhalers at baseline presented with respiratory distress. D-dimer elevated at 1.05 and CRP at 79. LDH at 1096 CTA showed bilateral diffuse groundglass opacities Patient respiratory is continued decline eventually needing intubation and mechanical ventilatory support on 08/12/2021. Plan: Intubated and sedated we will continue propofol and fentanyl. Triglycerides increasing to 337 from 08/15/2021. We will repeat with tomorrow labs. Worsening respiratory status over the weekend . His FiO2 is increased to 100% and PEEP to 18. Patient respiratory status gradually improving. He today on 16 of PEEP and FiO2 was decreased to 60%. We will closely monitor. Chest x-ray relatively unchanged. Received 20 mg of IV Lasix today. Will wean his PEEP as tolerated. Concern for cuff leak. We will closely monitor. ET tube appropriately placed. ABG reviewed. Nasal MRSA PCR negative. Tracheal aspirate from 08/15 showing gram-negative rods. Tracheal aspirate from 08/12 showing yeast. Will monitor. We will continue cefepime. Vancomycin was discontinued over the weekend. We will continue remdesivir dexamethasone and barcitinib Not requiring any pressors in the last 24 hours. We will watch. Leukocytosis slightly worse. Low-grade fevers. Continue cefepime. We will closely monitor. Pending repeat sputum and blood cultures. Abdomen soft nontender. Continue tube feeds. Transaminases and bilirubin levels STABLE We will continue to monitor. Renal function stable. Potassium at 5. Potassium supplements discontinued yesterday. - Continue mechanical ventilatory support - Continue AnalgoSedation with Propofol and Fentanyl with CPOT gal less than or euqal to 2 and RASS goal of 1 to 2 - VAP bundle Elevate head of the bed at 30 to 45 degrees Oral care with chlorhexidne GI ulcer prophylaxis - Famotidine 20mg IV BID Chemical DVT prophylaxis Thank you for involving pulmonary in this patient care. We will continue to follow.
--- NOTE | 2021-08-17 11:45 | PC.NURSE ---
PEEP decreased to [address] Blanca. Sats staying above 95%.
--- NOTE | 2021-08-17 14:24 | DIET.NUTRFU ---
Patient respiratory status has been stable and improving in the last 24 hours. Increased edema noted +2, lasix started. Weight is up 2kg in 4 days with 102kg. Continues on propofol 60cg/min providing 1584kcal. Current tubefeeding at goal rate of Pulmocare 50ml/hr ATC= 1150ml/day, 1725kcal/day (total with propofol is 3309kcal or 32kcal/kg), 72gm protein and 902ml free water. Continues on IVF. When appropriate start flush of 125ml Q4H= 750ml/.day with total fluid of 1652ml/day. Continue current POC
[2021-08-18] VITALS (33 sets, daily range): BP systolic 79–128; BP diastolic 43–78; PULSE 50–97; RESP 26–35; TEMP 36.4–36.9; O2SAT 91–97; BMI 32.8
--- NOTE | 2021-08-18 06:00 | XR_ITS ---
PROCEDURE INFORMATION: Exam: XR Chest Exam date and time: 08/18/2021 6:00 AM Age: 56 years old Clinical indication: Device placement; Ett placement (vent status); Additional info: Daily while intubated TECHNIQUE: Imaging protocol: XR of the chest. Views: 1 view. COMPARISON: CR XR CHEST PORTABLE 08/17/2021 5:36 AM FINDINGS: Tubes, catheters and devices: ET tube is 5 cm from the pamela. Nasogastric tube is unchanged. Lungs: Bilateral airspace disease is noted improving somewhat on the left. Pleural spaces: Unremarkable. No pleural effusion. No pneumothorax. Heart/Mediastinum: Unremarkable. No cardiomegaly. Bones/joints: Unremarkable. IMPRESSION: ET tube in good position. Improving left-sided airspace disease. Stable right-sided airspace disease.
--- NOTE | 2021-08-18 06:30 | PC.NURSE ---
Vent settings are as follows: AC, FiO2 60%, R 26, PEEP 14, TV 440. Pt has bucked the vent at times this shift. BP has been soft. Pt remains on Propofol gtt. Currently infusing @ 50 mcg/kg/min. Fentanyl gtt @ 100 mcg/hr. Levophed gtt was titrated from 0.5 mcg/min to currently 1 mcg/min. See titration below. Pt has been bradycardic at times this shift. Wheezing noted to upper lobes this shift. Thick sputum noted, requiring RT to lavage. F/C draining to bedside with clear, yellow urine. Pt repositioned and bathed. Bed linens changed. Pressure are noted to coccyx. Erythema noted to caitlin area. No other concerns. Will continue to monitor. Levophed titration; 2115 increased from 0.5 mcg/min to 1 mcg/min 2230 titrated from 1mcg/min to 2 mcg/min 0030 titrated from 2 mcg/min to 1 mcg/min 0115 titrated from 1 mcg/min to 2 mcg/min 0630 titrated from 2 mcg/min to 1 mcg/min
[2021-08-18 06:45] LABS: Basophils # 0.1 K/mm3 (0-0.2); Basophils % 0.5 % (0.1-2.0); Eosinophils # 0.1 K/mm3 (0.0-0.4); Eosinophils % 0.3 % (0.1-12.0); Hematocrit 36.5 % (42.0-52.0); Lymphocytes # 1.2 K/mm3 (0.7-4.5); Lymphocytes % 4.9 % (10-50); Mean Corpuscular Hemoglobin 31.4 pg (27.0-31.2); Mean Corpuscular Volume 95.2 fl (80-94); Mean Platelet Volume 10.8 fl (7.4-10.4); Monocytes # 0.6 K/mm3 (0.1-1.0); Monocytes % 2.7 % (1.7-9.3); Neutrophils # 21.7 K/mm3 (1.8-7.8); Neutrophils % 91.5 % (37.0-80.0); Platelet Count 356 K/mm3 (142-424); Red Blood Count 3.83 M/mm3 (4.60-6.20); Red Cell Distribution Width 14.7 % (11.5-17.5); White Blood Count 23.7 K/mm3 (4.8-10.8)
[2021-08-18 07:07] LABS: MANUAL DIFFERENTIAL MANUAL DIFFERENTIAL (MANUAL DIFF)
[2021-08-18 07:09] LABS: C-Reactive Protein 156.2 mg/L (0-4)
[2021-08-18 07:22] LABS: Lymphocytes % 8 % (10-50); Monocytes % 3 % (2-9); Neutrophils % 89 % (42-76); Platelet Estimate Normal; RBC Morphology Normal; Total Cells Counted 100
--- NOTE | 2021-08-18 07:33 | PC.NURSE ---
Addendum entered by Iza Lagos RN 08/18/21 08:28: 0825- BP 79/43 levo gtt restarted at 2mcg/min Addendum entered by Iza Lagos RN 08/18/21 07:42: CORRECTION:Levo gtt turned off at this time Original Note: BP 115/60- levo gtt titrated to 0.5mcg/min Propofol gtt increased to 60 mcg/min
[2021-08-18 07:36] LABS: ABG Base Excess 5.4 mmol/L (-2.4-2.3); ABG HCO3 29.9 mmhg (22.0-26.0); ABG Oxygen Saturation 87 % (90-100); ABG PCO2 47.1 mmhg (35.0-45.0); ABG PH 7.42 mmol/L (7.35-7.45); ABG PO2 50.7 mmhg (80-100); ABG TCO2 31.3 mmhg (23-27)
[2021-08-18 07:39] LABS: Allen's Test Patient Unable; Oxygen 60% %; PEEP 14; Tidal Volume 440; Vent Rate 26
[2021-08-18 07:40] LABS: Source Right Radial
[2021-08-18 07:41] LABS: Lactate Arterial 1.4 mmol/L (0.4-2.0)
[2021-08-18 08:18] LABS: Triglycerides 399 mg/dl (30-150)
--- NOTE | 2021-08-18 08:47 | HMH.ACPN2 ---
Internal Medicine - PN: Subj *Date: 08/18/21 *Time: 08:47 Interval history: Patient's blood pressure is lower today with systolic in the 80s. He has been restarted back on Levophed. He remains sedated and on the vent with settings of tidal volume of 440 FiO2 of 65%, respiratory rate of 26, and PEEP of 14. ABGs on the settings this a.m. pH 7.42 PCO2 of 47.1 PO2 of 50.7 and a bicarb of 29.9. Laboratory data show an increase in his WBCs at 23,700 with a hemoglobin of 12 and hematocrit of 36.5.Chest x-ray shows Improving left sided airspace disease stable right sided airspace disease. Bronchial aspirate culture shows stenotrophomonas maltophilia sensitive to Levaquin. Patient currently is on cefepime. Patient continues to tolerate tube feedings. Hinton catheter to bedside drainage Exam Vital signs and Labs for Last 24 Hours: Temp Pulse Resp BP Pulse Ox 98.1 F 84 31 H 105/57 L 94 L 08/18/21 04:00 08/18/21 07:00 08/18/21 06:00 08/18/21 07:00 08/18/21 07:00 Laboratory Results - last 24 hr 08/18/21 05:33: WBC 23.7 H*, RBC 3.83 L, Hgb 12.0 L, Hct 36.5 L, MCV 95.2 H, MCH 31.4 H, MCHC 33.0, RDW 14.7, Plt Count 356, MPV 10.8 H, Neut % (Auto) 91.5 H, Lymph % (Auto) 4.9 L, [place] % (Auto) 2.7, Eos % (Auto) 0.3, Baso % (Auto) 0.5, Neut # (Auto) 21.7 H, Lymph # (Auto) 1.2, [place] # (Auto) 0.6, Eos # (Auto) 0.1, Baso # (Auto) 0.1, Total Counted 100, Neutrophils % (Manual) 89 H, Lymphocytes % (Manual) 8 L, Monocytes % (Manual) 3, Platelet Estimate Normal, RBC Morphology Normal 08/18/21 05:33: C-Reactive Protein 156.2 H 08/18/21 05:33: Triglycerides 399 H 08/18/21 07:20: Specimen Source Right radial, O2 % 60%, ABG pH 7.42, ABG pCO2 47.1 H, ABG pO2 50.7 L, ABG HCO3 29.9 H, ABG Total CO2 31.3 H, ABG O2 Saturation 87 L*, ABG Base Excess 5.4 H, Teto Test Patient unable, Vent Rate 26, Tidal Volume 440, PEEP 14 I & O for Last 24 hours: Intake & Output 08/15/21 08/16/21 08/17/21 08/18/21 11:59 11:59 11:59 11:59 Intake Total 2601 / 2601 4122 / 4122 3496 / 3643 2881 / 2881 Output Total 2815 / 3040 1375 / 1470 1235 / 1335 1974 Balance -214 / -439 2747 / 2652 2261 / 2308 906 / 906 Weight 219 lb 9.6 oz 226 lb 14.4 oz 224 lb 13.944 oz 229 lb 9.6 oz Microbiology Reports for the Last 24 Hours: Microbiology 08/15/21 10:30 Lung,Right Lower Lobe Gram Stain - Final 08/15/21 10:30 Lung,Right Lower Lobe Bronchial Aspirate Culture - Final Stenotrophomonas maltophilia 08/15/21 11:19 Blood Blood Culture - Preliminary NO GROWTH AFTER 48 HOURS 08/15/21 11:19 Blood Blood Culture - Preliminary NO GROWTH AFTER 48 HOURS - Constitutional no acute distress Comments: Remains sedated and on ventilator - *Routine Respiratory Exam Present: patient mechanically ventilated, CTA bilaterally - *Routine Cardiovascular Exam Present: RRR Comments: Monitor showing sinus rhythm - *Routine Abdominal Exam Present: soft, normoactive bowel sounds - *Routine Extremities Exam Absent: edema - *Routine Neurological Exam Sedated and on ventilator Assessment and Plan (1) COVID-19 Status: Acute Category: Medical Code(s): U07.1 - COVID-19 (2) Acute respiratory failure with hypoxia Status: Acute Category: Medical Code(s): J96.01 - Acute respiratory failure with hypoxia (3) Viral pneumonia Status: Acute Category: Medical Code(s): J12.9 - Viral pneumonia, unspecified (4) Hypertension Status: Acute Category: Medical Code(s): I10 - Essential (primary) hypertension (5) Cerebral palsy Status: Acute Category: Medical Code(s): G80.9 - Cerebral palsy, unspecified (6) Hyperlipidemia Status: Acute Category: Medical Code(s): E78.5 - Hyperlipidemia, unspecified (7) Hypokalemia Status: Acute Category: Medical Code(s): E87.6 - Hypokalemia - Assessment and plan all Dx Assessment and Plan for all
--- NOTE | 2021-08-18 09:04 | PC.NURSE ---
Addendum entered by Iza Lagos RN 08/18/21 09:57: Levo gtt titrated to 2mcg/min Original Note: MAP consistently <60. Levo gtt titrated to 4mcg/min
[2021-08-18 09:09] LABS: Alanine Aminotransferase 53 U/L (12-78); Albumin Level 2.7 g/dl (3.5-5.0); Albumin/Globulin Ratio 0.8 (1.1-1.8); Alkaline Phosphatase 136 U/L (38-126); Aspartate Amino Transferase 93 U/L (17-59); Bilirubin,Total 0.9 mg/dl (0.2-1.3); Blood Urea Nitrogen 32 mg/dl (9-20); Carbon Dioxide 33 mmol/L (22.0-30.0); Chloride 98 mmol/L (98-107); Creatinine Clearance Estimated 198 mL/min (50-200); Estimated Glomerular Filt Rate 138 ml/min (>60); GFR (African American) 167 ML/MIN (>60); Globulin 3.5 g/dL (1.3-3.2); Glucose 168 mg/dl (74-100); Sodium 131 mmol/L (136-145); Total Protein,Serum 6.2 g/dl (6.3-8.2)
--- NOTE | 2021-08-18 09:32 | HMH.PULMPN ---
Internal Medicine - PN: Subj *Date: 08/18/21 *Time: 12:55 Interval history: Patient respiratory status worsening with worsening oxygen status Exam - Constitutional Constitutional:: Present: no acute distress, comfortable - HENMT Exam HENMT: Present: normocephalic, atraumatic - Eye Exam Eyes:: Present: normal appearance both eyes and related structures - Neck Exam Neck:: Present: normal visual inspection - Respiratory Exam Respiratory:: Present: respiratory distress, rales, rhonchi - Cardiovascular Exam Cardiac:: Present: S1, S2 - GI Exam GI:: Present: soft, no tenderness - Neurological Exam Neurological: Absent: alert, awake, normal cognition - Extremities Exam Extremities: Present: no cyanosis, no clubbing, edema Assessment and Plan (1) COVID-19 Status: Acute Category: Medical Code(s): U07.1 - COVID-19 (2) Acute respiratory failure with hypoxia Status: Acute Category: Medical Code(s): J96.01 - Acute respiratory failure with hypoxia (3) Viral pneumonia Status: Acute Category: Medical Code(s): J12.9 - Viral pneumonia, unspecified (4) Hypertension Status: Acute Category: Medical Code(s): I10 - Essential (primary) hypertension (5) Cerebral palsy Status: Acute Category: Medical Code(s): G80.9 - Cerebral palsy, unspecified (6) Hyperlipidemia Status: Acute Category: Medical Code(s): E78.5 - Hyperlipidemia, unspecified (7) Hypokalemia Status: Acute Category: Medical Code(s): E87.6 - Hypokalemia - Assessment and plan all Dx Assessment and Plan for all problems:: #Acute hypoxic respiratory failure: #COVID-19 pneumonia: 55-year-old completed vaccination for COVID-19 pneumonia no prior respiratory complaints not on any inhalers at baseline presented with respiratory distress. D-dimer elevated at 1.05 and CRP at 79. LDH at 1096 CTA showed bilateral diffuse groundglass opacities Patient respiratory is continued decline eventually needing intubation and mechanical ventilatory support on 08/12/2021. Plan: Intubated and sedated we will continue propofol and fentanyl. Triglycerides increasing to 399. Currently on 60 of propofol 100 of fentanyl with intermittent issues with sedation. Respiratory status continued to worsen, SPO2 was 50 on ABG this morning. Chest x-ray concerning for worsening right-sided infiltrates. FiO2 increased to 65. Continue to remain on 14 of PEEP for 40 of tidal volume and rate of 26. Sputum culture growing stenotrophomonas sensitive to levofloxacin. Resistant to ceftazidime. Given concerns for worsening oxygen status, worsening leukocytosis, worsening hemodynamics needing pressors we will strongly recommend continue cefepime along with addition of Bactrim for stenotrophomonas. Nasal MRSA PCR negative. Vancomycin was discontinued over the weekend. We will continue barcitinib. Completed 10-day course of remdesivir and dexamethasone Needing low-dose pressors, Levophed at 2 mcg today. We will continue to monitor. Leukocytosis slightly worse. Low-grade fevers. Recommend to continue cefepime for 7 days along with addition of Bactrim for stenotrophomonas. We will closely monitor. Abdomen soft nontender. Continue tube feeds. Transaminases and bilirubin levels STABLE We will continue to monitor. Renal function stable. Potassium at 5. Adequate urine output - Continue mechanical ventilatory support - Continue AnalgoSedation with Propofol and Fentanyl with CPOT gal less than or euqal to 2 and RASS goal of 1 to 2 - VAP bundle Elevate head of the bed at 30 to 45 degrees Oral care with chlorhexidne GI ulcer prophylaxis - Famotidine 20mg IV BID Chemical DVT prophylaxis Thank you for involving pulmonary in this patient care. We will continue to follow.
[2021-08-18 10:08] LABS: Microscopic,Cath URINE MICROSCOPIC (MICROSCOPIC)
[2021-08-18 10:13] LABS: Appearance,Urine/Cath CLEAR (Clear); Bilirubin,Cath Negative (Negative); Blood, Urine/Cath 3+ (Negative); Color,Urine/Cath YELLOW (Yellow); Glucose,Urine/Cath (UA) Negative (Negative); Ketones,Urine/Cath Negative (Negative); Leukocyte Esterase,Cath Negative (Negative); Nitrate,Cath Negative (Negative); PH,Urine/Cath 5.5 (5.0-8.5); Protein,Urine/Cath TRACE (Negative); Specific Gravity, Urine/Cath 1.025 (1.005-1.030); Urobilinogen,Cath 0.2 EU/dl (0.2)
[2021-08-18 10:32] LABS: Squamous Epithelial Ur./Cath Occasional #/hpf (0-5)
--- NOTE | 2021-08-18 11:44 | HMH.ACPN ---
Internal Medicine - PN: Subj *Date: 08/18/21 *Time: 11:44 Exam Vital signs and Labs for Last 24 Hours: Temp Pulse Resp BP Pulse Ox 98.4 F 63 32 H 97/51 L 95 08/18/21 10:00 08/18/21 11:05 08/18/21 11:00 08/18/21 11:00 08/18/21 11:00 Laboratory Results - last 24 hr 08/18/21 05:33: WBC 23.7 H*, RBC 3.83 L, Hgb 12.0 L, Hct 36.5 L, MCV 95.2 H, MCH 31.4 H, MCHC 33.0, RDW 14.7, Plt Count 356, MPV 10.8 H, Neut % (Auto) 91.5 H, Lymph % (Auto) 4.9 L, [place] % (Auto) 2.7, Eos % (Auto) 0.3, Baso % (Auto) 0.5, Neut # (Auto) 21.7 H, Lymph # (Auto) 1.2, [place] # (Auto) 0.6, Eos # (Auto) 0.1, Baso # (Auto) 0.1, Total Counted 100, Neutrophils % (Manual) 89 H, Lymphocytes % (Manual) 8 L, Monocytes % (Manual) 3, Platelet Estimate Normal, RBC Morphology Normal 08/18/21 05:33: C-Reactive Protein 156.2 H 08/18/21 05:33: Triglycerides 399 H 08/18/21 05:33: Sodium 131 L, Potassium 5.0, Chloride 98, Carbon Dioxide 33 H, Anion Gap 5.0, BUN 32 H, Creatinine 0.60 L D, Estimated Creat Clear 198, Estimated GFR 138, Est GFR ( Amer) 167 D, Glucose 168 H, Calcium 8.0 L, Total Bilirubin 0.9, AST 93 H, ALT 53, Alkaline Phosphatase 136 H, Total Protein 6.2 L, Albumin 2.7 L, Globulin 3.5 H, Albumin/Globulin Ratio 0.8 L 08/18/21 07:20: Specimen Source Right radial, O2 % 60%, ABG pH 7.42, ABG pCO2 47.1 H, ABG pO2 50.7 L, ABG HCO3 29.9 H, ABG Total CO2 31.3 H, ABG O2 Saturation 87 L*, ABG Base Excess 5.4 H, Teto Test Patient unable, Vent Rate 26, Tidal Volume 440, PEEP 14 08/18/21 09:45: Urine Color Yellow, Urine Appearance Clear, Urine pH 5.5, Ur Specific [place] 1.025, Urine Protein Trace, Urine Glucose (UA) Negative, Urine Ketones Negative, Urine Blood 3+, Urine Nitrate Negative, Urine Bilirubin Negative, Urine Urobilinogen 0.2, Ur Leukocyte Esterase Negative, Urine RBC 10-20, Urine WBC 3-5, Ur Squamous Epith Cells Occasional, Urine Bacteria None I & O for Last 24 hours: Intake & Output 08/15/21 08/16/21 08/17/21 08/18/21 23:59 23:59 23:59 23:59 Intake Total 4307 / 4307 3258 / 3675 3085 / 3085 1128 / 1128 Output Total 2140 / 2140 880 / 965 1940 / 1940 990 / 990 Balance 2167 / 2167 2378 / 2710 1145 / 1145 138 / 138 Weight 99.609 kg 102.92 kg 102 kg 104.145 kg Microbiology Reports for the Last 24 Hours: Microbiology 08/15/21 10:30 Lung,Right Lower Lobe Gram Stain - Final 08/15/21 10:30 Lung,Right Lower Lobe Bronchial Aspirate Culture - Final Stenotrophomonas maltophilia 08/15/21 11:19 Blood Blood Culture - Preliminary NO GROWTH AFTER 48 HOURS 08/15/21 11:19 Blood Blood Culture - Preliminary NO GROWTH AFTER 48 HOURS Assessment and Plan (1) COVID-19 Status: Acute Category: Medical Code(s): U07.1 - COVID-19 (2) Acute respiratory failure with hypoxia Status: Acute Category: Medical Code(s): J96.01 - Acute respiratory failure with hypoxia (3) Viral pneumonia Status: Acute Category: Medical Code(s): J12.9 - Viral pneumonia, unspecified (4) Hypertension Status: Acute Category: Medical Code(s): I10 - Essential (primary) hypertension (5) Cerebral palsy Status: Acute Category: Medical Code(s): G80.9 - Cerebral palsy, unspecified (6) Hyperlipidemia Status: Acute Category: Medical Code(s): E78.5 - Hyperlipidemia, unspecified (7) Hypokalemia Status: Acute Category: Medical Code(s): E87.6 - Hypokalemia The patient's infection will respond to the chosen ABx?: Yes Is the patient receiving the right drug, dose, and route?: Yes Could a more targeted ABx be ordered?: No (CX WAS STENOTROP MALTIPHILIA SENSITIVE TO LEVAQUIN, ABX CHANGED.)
--- NOTE | 2021-08-18 12:30 | PC.NURSE ---
propofol gtt turned down to 58mcg/min
--- NOTE | 2021-08-18 13:45 | PC.NURSE ---
Fentanyl drip increased to 125mcg at this time related to patient overbreathing ventilator, RR 45, current o2 saturations on fio2 65% are 84% and declining despite getting 100% o2 breaths per RT
--- NOTE | 2021-08-18 14:32 | PC.NURSE ---
1350- Patients O2 saturations continue 78-80% at this time, given 4mg versed per MD order.
--- NOTE | 2021-08-18 15:05 | PC.WOUNDNOTE ---
Redness to bilateral thighs around groin. picture per. kayy carl
--- NOTE | 2021-08-18 15:05 | PC.NURSE ---
Fentanyl gtt turned down to 100 mcg/min at this time.
--- NOTE | 2021-08-18 15:06 | PC.WOUNDNOTE ---
Stage on noted to r buttock discoloration noted to bilateral buttock pictures per. kayy carl
--- NOTE | 2021-08-18 15:35 | PC.NURSE ---
Left message for MD Mena at [facility] office regarding pulmonolgy recommendations regarding abx.
--- NOTE | 2021-08-18 17:27 | HMH.PTWOUND ---
Rehab Inpt Wound Evaluation Rehab IP Wound Evaluation Start: 08/18/21 15:14 Freq: ONCE Status: Active Protocol: Document 08/18/21 17:19 JEFF (Rec: 08/18/21 17:27 JEFF [id number]) Rehab PT Wound Assessment Patient Status Premedicated Prior to Dressing Change Yes Subjective Subjective Pt intubated Wound Left Lower Buttock Wound Type shear injury/bruise Is This a Chronic Wound No Wound Staging Stage I Query Text:Stage I - Unbroken, red skin, no blanching. Stage II - Skin broken, superficial skin loss involving epidermis alone or also dermis. Partial loss of skin layers. Stage III - Pressure area involves epidermis, dermis and subcutaneous tissue, full thickness skin loss. Stage IV - Pressure area involves epidermis, subcutaneous tissue, bone and other supportive tissue. Full thickness skin loss with extensive destruction of underlying tissue and structures. Wound Margins Description Indistinct Primary Dressing Absorbant Pad Comment optifoam Wound Secondary Dressing Type Absorbant Pad Comment optifoam padding Right Lower Buttock Wound Type shear injury/bruise Is This a Chronic Wound No Primary Dressing Absorbant Pad Comment optifoam Wound Secondary Dressing Type Absorbant Pad Comment optifoam Plan/Recommendation Comment At this time pt has shear injury pressure wound from angled bed to allow increased inflation of lungs. Pt has no open wound but Wound care afraid large wounds could open if shear forces and pressure continue. Extra padding for pressure relief, pillow blocks to assist in prevention of shearing force as patient is in inclined bed, and proper rolling schedule are recommended and have been relayed to [facility]. Please continue to consult wound care for recommendations. PHYSICIAN CERTIFICATION: I certify the specified therapy services for Hans Nelson are required, authorized, and reviewed every 30 days.
--- NOTE | 2021-08-18 18:44 | PC.NURSE ---
Current vent settings: PEEP 14, Tidal Volume 440, FiO2 65%, Rate 26 Current gtt rates: Levo 2mcg/min, Prop 60mcg/min, and Fentanyl 100 mcg/min Pt has been a q2h turn, in-line suctioning has been performed when needed, oral care q2h. Thick cream and yellow sputum suctioned from oral cavity this shift. Urine in theodore bag clear and dark yellow. Bed has been in reverse trendelenberg this shift. No BM noted this shift, no BM noted since 07/14/21.
[2021-08-19] VITALS (30 sets, daily range): BP systolic 87–138; BP diastolic 48–65; PULSE 50–104; RESP 28–36; TEMP 36.6–37.4; O2SAT 83–97; BMI 33.4
--- NOTE | 2021-08-19 06:00 | XR_ITS ---
PROCEDURE INFORMATION: Exam: XR Chest Exam date and time: 08/19/2021 6:00 AM Age: 56 years old Clinical indication: Device placement; Ett placement (vent status); Additional info: Daily while intubated TECHNIQUE: Imaging protocol: XR of the chest. Views: 1 view. COMPARISON: CR XR CHEST PORTABLE 08/18/2021 4:32 AM FINDINGS: Tubes, catheters and devices: ET tube is in good position. Nasogastric tube is unchanged. Lungs: Patchy bilateral airspace disease is noted. Pleural spaces: Unremarkable. No pleural effusion. No pneumothorax. Heart/Mediastinum: Unremarkable. No cardiomegaly. Bones/joints: Unremarkable. IMPRESSION: Stable to slightly improved bilateral patchy airspace disease.
--- NOTE | 2021-08-19 06:32 | PC.NURSE ---
no acute events this shift vent settings FiO2 65%, tidal volume 440, rate 26, PEEP 14 Fent at 100 prop at 60 levo at 2
[2021-08-19 06:46] LABS: Basophils # 0.2 K/mm3 (0-0.2); Basophils % 0.6 % (0.1-2.0); Eosinophils # 0.1 K/mm3 (0.0-0.4); Eosinophils % 0.5 % (0.1-12.0); Hematocrit 34.8 % (42.0-52.0); Hemoglobin 11.3 g/dL (14.1-18.0); Lymphocytes # 1.6 K/mm3 (0.7-4.5); Lymphocytes % 6.5 % (10-50); Mean Corpuscular HGB Conc 32.4 g/dL (31.8-35.4); Mean Corpuscular Hemoglobin 31.2 pg (27.0-31.2); Mean Corpuscular Volume 96.3 fl (80-94); Mean Platelet Volume 10.3 fl (7.4-10.4); Monocytes # 0.7 K/mm3 (0.1-1.0); Monocytes % 2.7 % (1.7-9.3); Neutrophils # 22.2 K/mm3 (1.8-7.8); Neutrophils % 89.8 % (37.0-80.0); Platelet Count 365 K/mm3 (142-424); Red Blood Count 3.61 M/mm3 (4.60-6.20); Red Cell Distribution Width 14.8 % (11.5-17.5); White Blood Count 24.7 K/mm3 (4.8-10.8)
--- NOTE | 2021-08-19 07:08 | PC.NURSE ---
propofol increased to 80 at this time due to decreased sats in the low 70's, pt stacking his breaths
[2021-08-19 07:13] LABS: MANUAL DIFFERENTIAL MANUAL DIFFERENTIAL (MANUAL DIFF)
[2021-08-19 07:25] LABS: ABG Base Excess 3.9 mmol/L (-2.4-2.3); ABG HCO3 27.8 mmhg (22.0-26.0); ABG Oxygen Saturation 87 % (90-100); ABG PCO2 40.1 mmhg (35.0-45.0); ABG PH 7.46 mmol/L (7.35-7.45)
[2021-08-19 07:26] LABS: Oxygen 65 %; Tidal Volume 440; Vent Rate 26
[2021-08-19 07:27] LABS: Allen's Test acceptable; PEEP 14
[2021-08-19 07:29] LABS: Lactate Arterial 2.4 mmol/L (0.4-2.0)
--- NOTE | 2021-08-19 08:00 | PC.NURSE ---
LATE ENTRY: MD Blanca gave TO to Cayden Hinds RN for: central line placement, echo w/ bubble study , 2mg IV versed x3 q10min. Orders received and carried out by this RN and Amalia Hinds RN
--- NOTE | 2021-08-19 08:15 | HMH.ACPN2 ---
Internal Medicine - PN: Subj *Date: 08/19/21 *Time: 08:15 Interval history: Patient is restless and overriding the vent. He remains on Levophed. He is tolerating tube feedings. He remains on sedation will be given extra Versed for his restlessness. Vent settings are as follows tidal volume 440, FiO2 75% respiratory rate 26 and 14 of PEEP. ABGs this morning PH is 7.46 PCO2 is 40.1 PO2 is 50 and a bicarb of 27.8. CBC reveals a white count of 24,700 with a hemoglobin of 11.3 hematocrit of 34.8. Blood chemistries with a low sodium of 131 potassium of 5 BUN of 32 and creatinine 0.6. Liver function studies with slightly elevated AST at 93 and alkaline phosphatase of 136. Chest x-ray continues to show stable to slightly improved bilateral patchy airspace disease. Exam Vital signs and Labs for Last 24 Hours: Temp Pulse Resp BP Pulse Ox 98.0 F 78 30 H 107/56 L 93 L 08/19/21 06:00 08/19/21 06:52 08/19/21 06:52 08/19/21 06:52 08/19/21 06:52 Laboratory Results - last 24 hr 08/18/21 05:33: Triglycerides 399 H 08/18/21 05:33: Sodium 131 L, Potassium 5.0, Chloride 98, Carbon Dioxide 33 H, Anion Gap 5.0, BUN 32 H, Creatinine 0.60 L D, Estimated Creat Clear 198, Estimated GFR 138, Est GFR ( Amer) 167 D, Glucose 168 H, Calcium 8.0 L, Total Bilirubin 0.9, AST 93 H, ALT 53, Alkaline Phosphatase 136 H, Total Protein 6.2 L, Albumin 2.7 L, Globulin 3.5 H, Albumin/Globulin Ratio 0.8 L 08/18/21 09:45: Urine Color Yellow, Urine Appearance Clear, Urine pH 5.5, Ur Specific [place] 1.025, Urine Protein Trace, Urine Glucose (UA) Negative, Urine Ketones Negative, Urine Blood 3+, Urine Nitrate Negative, Urine Bilirubin Negative, Urine Urobilinogen 0.2, Ur Leukocyte Esterase Negative, Urine RBC 10-20, Urine WBC 3-5, Ur Squamous Epith Cells Occasional, Urine Bacteria None 08/19/21 05:49: WBC 24.7 H*, RBC 3.61 L, Hgb 11.3 L, Hct 34.8 L, MCV 96.3 H, MCH 31.2, MCHC 32.4, RDW 14.8, Plt Count 365, MPV 10.3, Neut % (Auto) 89.8 H, Lymph % (Auto) 6.5 L, [place] % (Auto) 2.7, Eos % (Auto) 0.5, Baso % (Auto) 0.6, Neut # (Auto) 22.2 H, Lymph # (Auto) 1.6, [place] # (Auto) 0.7, Eos # (Auto) 0.1, Baso # (Auto) 0.2 08/19/21 06:00: ABG Lactate 2.4 H 08/19/21 06:00: Specimen Source l radial, O2 % 65, ABG pH 7.46 H, ABG pCO2 40.1, ABG pO2 50.0 L, ABG HCO3 27.8 H, ABG Total CO2 29.0 H, ABG O2 Saturation 87 L*, ABG Base Excess 3.9 H, Teto Test acceptable, Vent Rate 26, Tidal Volume 440, PEEP 14 I & O for Last 24 hours: Intake & Output 08/16/21 08/17/21 08/18/21 08/19/21 11:59 11:59 11:59 11:59 Intake Total 4122 / 4122 3496 / 3643 2881 / 2881 3651 / 3651 Output Total 1375 / 1470 1235 / 1335 2100 / 2225 2260 / 2260 Balance 2747 / 2652 2261 / 2308 781 / 656 1391 / 1391 Weight 226 lb 14.4 oz 224 lb 13.944 oz 229 lb 9.6 oz 233 lb 8 oz Microbiology Reports for the Last 24 Hours: Microbiology 08/15/21 10:30 Lung,Right Lower Lobe Gram Stain - Final 08/15/21 10:30 Lung,Right Lower Lobe Bronchial Aspirate Culture - Final Stenotrophomonas maltophilia - Constitutional no acute distress Comments: Sedated but is overriding vent with a respiratory rate of 36 - *Routine Respiratory Exam Present: patient mechanically ventilated, CTA bilaterally - *Routine Cardiovascular Exam Present: RRR (Monitor showing normal sinus rhythm in the 80s) - *Routine Abdominal Exam Present: soft, normoactive bowel sounds Comments: Continuous tube feedings. [place] cath to bedside drainage. - *Routine Extremities Exam Present: edema (Bilateral lower legs) - *Routine Neurological Exam Sedated on vent Assessment and Plan (1) COVID-19 Status: Acute Category: Medical Code(s): U07.1 - COVID-19 (2) Acute respiratory failure with hypoxia Status: Acute Category: Medical Code(s): J96.01 - Acute respiratory failure with hypoxia (3) Viral pneumonia Status: Acute Category: Medical Code(s): J12.9 - Viral pneumonia, unspecifi
--- NOTE | 2021-08-19 08:17 | CA_ITS ---
APPROVED REPORT EXAM: Comprehensive 2D, Doppler, and color-flow Echocardiogram Mold Cleaner: Lexi Aragon, RT(R) Wt: 233lbs BSA: 2.24 BP: 92/52 mmHg Indications: HTN, hyperlipidemia, COVID pneumonia, patient on ventilator, resp failure 2D Dimensions LVOT 2.26 cm (M/F) 1.5-2.5 M-Mode Dimensions RVDd 3.10 cm (0.9-2.6) LA Diam 4.24 cm (1.9-4.0) LVDd 4.35 cm (3.5-5.7) Ao Diam 3.27 cm (2.0-3.7) LVDs 3.26 cm (3.5-5.7) IVSd 1.13 cm (0.6-1.1) PWd 0.80 cm (0.6-1.1) EF (Teich) 49.90% FS 25.10% EDV (Teich) 85.40 mL ESV (Teich) 42.80 mL LV Diastology E Decel Time 227.00 (160-240 msec) E/A Ratio 1.0 MED E' 9.00 (< 7 cm/sec) E'/MED E' Ratio 7.96 (>14) Mitral Valve MV E Max Rod. 72.00 (40-130 cm/s) MV A Velocity 70.00 (40-130 cm/s) E/A Ratio 1.02 MV Decel. Time 227.00 (160-240 ms) MV PHT 66.00 ms Left Ventricle Left atrium is mildly enlarged, left ventricle is normal size, mild concentric left ventricular hypertrophy, visually estimated ejection fraction 55% with no regional wall motion abnormality. Grade 1 diastolic dysfunction seen without tissue Doppler evidence of raise left atrial pressure. Right Ventricle Right atrium and right ventricle are mildly enlarged with normal contractility. Aortic Valve Aortic valve is minimally thickened and fibrosed, there is no aortic stenosis or aortic insufficiency. Mitral Valve Mitral valve is grossly normal, there is trace mitral regurgitation. Tricuspid Valve Tricuspid valve grossly normal, there is trace tricuspid regurgitation, tricuspid regurgitation jet velocity is inadequate for calculation of the right ventricular systolic pressure. Pulmonic Valve Pulmonic valve is poorly visualized. Great Vessels Aortic root is normal size. Inferior vena cava is normal size with normal inspiratory collapse. Pericardium No significant pericardial effusion noted. Conclusion 1. Mild biatrial enlargement, normal left ventricular size, mild concentric left ventricular hypertrophy, visually estimated ejection fraction 55% with no regional wall motion abnormality, grade 1 diastolic dysfunction seen without tissue Doppler evidence of raise left atrial pressure. 2. Mildly enlarged right ventricle with normal contractility. 3. Trace mitral and tricuspid regurgitation. 4. Inferior vena cava is normal size with normal inspiratory collapse. Electronically signed by : Desmond Amos MD 08/19/2021 20:20:31
[2021-08-19 08:32] LABS: Alanine Aminotransferase 49 U/L (12-78); Albumin Level 2.4 g/dl (3.5-5.0); Albumin/Globulin Ratio 0.8 (1.1-1.8); Alkaline Phosphatase 136 U/L (38-126); Anion Gap 4.1 mEq/L (5-15); Aspartate Amino Transferase 69 U/L (17-59); Bilirubin,Total 0.8 mg/dl (0.2-1.3); Blood Urea Nitrogen 27 mg/dl (9-20); Calcium 7.9 mg/dl (8.4-10.2); Carbon Dioxide 35 mmol/L (22.0-30.0); Chloride 96 mmol/L (98-107); Creatinine Clearance Estimated 151 mL/min (50-200); Estimated Glomerular Filt Rate 99 ml/min (>60); GFR (African American) 120 ML/MIN (>60); Globulin 3.2 g/dL (1.3-3.2); Glucose 140 mg/dl (74-100); Potassium 5.1 mmoL/L (3.5-5.1); Sodium 130 mmol/L (136-145); Total Protein,Serum 5.6 g/dl (6.3-8.2)
[2021-08-19 08:46] LABS: Lymphocytes % 8 % (10-50); Macrocytosis 1+; Monocytes % 1 % (2-9); Neutrophils % 91 % (42-76); Platelet Estimate Normal; Total Cells Counted 100
[2021-08-19 08:47] LABS: Hypochromasia 2+
--- NOTE | 2021-08-19 09:00 | PC.NURSE ---
Telephone consent obtained for central line placement from pt's mother. Witnessed and verified w/ Cayden Hinds RN
--- NOTE | 2021-08-19 09:13 | PC.NURSE ---
0758- RT notified Cayden Hinds RN of critical pO2 results. Name, and room number verified. MD Blanca notified
--- NOTE | 2021-08-19 12:58 | PC.NURSE ---
levo gtt turned down to 1 mcg/min at this time
--- NOTE | 2021-08-19 14:05 | XR_ITS ---
PROCEDURE: XR CHEST PORTABLE CLINICAL HISTORY: central line placement COMPARISON: CT CT ANGIO CHEST PE PROTOCOL from 08/10/2021 CR XR CHEST PORTABLE from 08/17/2021 CR XR CHEST PORTABLE from 08/18/2021 CR XR CHEST PORTABLE from 08/19/2021 FINDINGS: 2:14 p.m. endotracheal tube is in good position at the T3-T4 level 6 cm above the pamela. Left subclavian central venous line has been placed. The tip is in the region the SVC. No evidence of pneumothorax. Nasogastric tube tip is not visible on the study but is below the GE junction. There is diffuse bilateral alveolar disease which may be slightly worse. No evidence of pneumothorax. IMPRESSION: Tubes and lines in good position. Slight progression diffuse bilateral airspace disease Dictated by: Teto Reeder MD 08/19/2021 14:32 Teto Reeder MD in OV 08/19/2021 14:32
--- NOTE | 2021-08-19 14:13 | HMH.GSCON ---
*Admission Date: 08/08/21 *Reason for consult:: Central line placement *History of present illness: Mr. Nelson is a 55-year-old male never smoker no prior respiratory complaints as per the patient, completed his vaccination for COVID-19 pneumonia presented to the hospital with worsening respiratory distress and found to be positive for COVID-19 pneumonia needing high flow nasal cannula oxygen supplementation to maintain his saturations at the desired level and pulmonary was called for further management. Review of Systems - Review of Systems Review of systems:: unable to obtain - *Neurologic Reports abnormal walking [facility] History I have reviewed the patient's past medical history: Yes Medical History: Reports:: Hyperlipidemia, Hypertension Denies:: Cancer, Diabetes Mellitus Type 1, Diabetes Mellitus Type 2, MRSA *Have you ever received a pneumonia vaccine?: No *Have you received a flu vaccine this season?: No Laterality Cases: Left: Other (Left elbow dislocation with treatment) Other Surgeries: Yes: No Previous Surgery Amputation: No Fractures: No - *Social History Last grade of school completed: 11th or 12th Smoking Status: Never smoker Alcohol Intake: never Substance Use Type: denies use *Occupational Status:: employed Household Members: family *Travel in the last 8 weeks: None Family Hx:: Cancer Meds Home Medications Medication Instructions Recorded Confirmed Type Albuterol Sulfate [Albuterol 2 puffs IH Q6HP PRN 30 Days #1 each 08/07/21 08/08/21 Rx Sulfate Hfa] Benzonatate [Benzonatate 100mg 100 mg PO TIDP PRN #30 cap 08/07/21 08/08/21 Rx cap] Ezetimibe [Zetia] 10 mg PO DAILY 08/07/21 08/08/21 History Losartan Potassium [Cozaar 100mg 100 mg PO DAILY 08/07/21 08/08/21 History Tablets] hydroCHLOROthiazide [HCTZ 25mg 25 mg PO DAILY 08/07/21 08/08/21 History tab] Azithromycin 250 mg PO DAILY 08/08/21 08/08/21 History Fish Oil/Dha/Epa [Fish Oil 1,200 1 each PO DAILY 08/08/21 08/08/21 History mg Fish Oil] dexAMETHasone [Decadron] 6 mg PO DAILY 08/08/21 08/08/21 History Allergies Allergy/AdvReac Type Severity Reaction Status Date / Time [id number] Reductase Allergy Verified 08/08/21 14:33 Inhibitor Exam Vital signs and Labs for Last 24 Hours: Temp Pulse Resp BP Pulse Ox 98.4 F 93 H 29 H 111/63 91 L 08/19/21 12:00 08/19/21 13:00 08/19/21 13:35 08/19/21 13:00 08/19/21 13:35 Laboratory Results - last 24 hr 08/19/21 05:49: WBC 24.7 H*, RBC 3.61 L, Hgb 11.3 L, Hct 34.8 L, MCV 96.3 H, MCH 31.2, MCHC 32.4, RDW 14.8, Plt Count 365, MPV 10.3, Neut % (Auto) 89.8 H, Lymph % (Auto) 6.5 L, [place] % (Auto) 2.7, Eos % (Auto) 0.5, Baso % (Auto) 0.6, Neut # (Auto) 22.2 H, Lymph # (Auto) 1.6, [place] # (Auto) 0.7, Eos # (Auto) 0.1, Baso # (Auto) 0.2, Total Counted 100, Neutrophils % (Manual) 91 H, Lymphocytes % (Manual) 8 L, Monocytes % (Manual) 1 L, Platelet Estimate Normal, Hypochromasia 2+, Macrocytosis 1+ 08/19/21 05:49: Sodium 130 L, Potassium 5.1, Chloride 96 L, Carbon Dioxide 35 H, Anion Gap 4.1 L, BUN 27 H, Creatinine 0.80 D, Estimated Creat Clear 151, Estimated GFR 99, Est GFR ( Amer) 120 D, Glucose 140 H, Calcium 7.9 L, Total Bilirubin 0.8, AST 69 H D, ALT 49, Alkaline Phosphatase 136 H, Total Protein 5.6 L, Albumin 2.4 L D, Globulin 3.2, Albumin/Globulin Ratio 0.8 L 08/19/21 06:00: ABG Lactate 2.4 H 08/19/21 06:00: Specimen Source l radial, O2 % 65, ABG pH 7.46 H, ABG pCO2 40.1, ABG pO2 50.0 L, ABG HCO3 27.8 H, ABG Total CO2 29.0 H, ABG O2 Saturation 87 L*, ABG Base Excess 3.9 H, Teto Test acceptable, Vent Rate 26, Tidal Volume 440, PEEP 14 I & O for Last 24 hours: Intake & Output 08/17/21 08/18/21 08/19/21 08/20/21 11:59 11:59 11:59 11:59 Intake Total 3496 / 3643 2881 / 2881 3651 / 3651 Output Total 1235 / 1335 2100 / 2225 2490 / 2640 150 / 150 Balance 2261 / 2308 781 / 656 1161 / 1011 -150 / -150 Weight 224 lb 13.944 oz 229 lb 9.6 oz 233 lb 8 oz N
--- NOTE | 2021-08-19 14:14 | HMH.OPNOTE ---
Date of procedure: 08/19/21 Pre-op Diagnosis:: Need for central venous access Post-op Diagnosis:: Same Procedure performed:: Placement of nontunneled 7 Vincentian triple-lumen left subclavian vein Surgeon:: Georges Cordoba MD Anesthesia: local Estimated blood loss (mL): 10 Clinical Note:: 56-year-old male from [place] with history of hypertension. He had tested positive for Covid on 08/01/2021 after feeling ill for several days with fevers. He developed progressive respiratory symptoms and was admitted on 08/08/2021. He is remained an inpatient. He had developed progressive respiratory failure requiring intubation about 8 days ago. He has required progressive drips and intravenous medications. Surgery was consulted for central line placement. Operative findings:: Seemingly normal anatomy Operative note:: Consent was obtained. Patient was positioned in Trendelenburg position. Left neck and chest were prepped and draped in the standard surgical fashion. Local anesthetic was infiltrated inferior to the left clavicle medial to the deltopectoral groove. 18-gauge needle was then inserted manipulating the needle posterior to the clavicle. Left subclavian vein was cannulated. There was good return of venous blood. Guidewire was then inserted. Small incision was made at the guidewire insertion site. Subcutaneous tissues were dilated. 7 Vincentian triple-lumen catheter was inserted over the guidewire using Seldinger technique. It was secured to the skin at approximately the 15 cm sujata with silk sutures. All ports aspirated and flushed without difficulty. Clean dry sterile dressing was applied. Chest x-ray being performed at the time of this dictation. Condition: stable Disposition: PACU Complications:: None immediately apparent
--- NOTE | 2021-08-19 14:48 | PC.NURSE ---
BP 126/63. Levo gtt turned off at this time.
--- NOTE | 2021-08-19 17:19 | PC.NURSE ---
Current vent settings: fio2 70%, tidal volume 440, PEEP 14, rate of 26 Current gtt settings: Propofol 80mcg/min, fentanyl 100mcg/min, and levophed has remained off since prior note from this RN. This RN provided all ADL's this shift/ Pt has been a q2h turn. Heel protectors on bilat feet, pressure relieving dressing on coccyx and buttocks as well. Pillow being used to float bilat heels. PRN in-line suctioning used with thick, creamy sputum w/ a blood-tinge. Q2H oral care performed and lips moisturized. Stat lock in place for theodore cath. Theodore cath draining clear, dark yellow urine. Bowel sounds
--- NOTE | 2021-08-19 17:31 | PC.NURSE ---
Current vent settings: fio2 70%, tidal volume 440, PEEP 14, rate of 26 Current gtt settings: Propofol 80mcg/min, fentanyl 100mcg/min, and levophed has remained off since prior note from this RN. This RN provided all ADL's this shift. Pt has been a q2h turn. Heel protectors on bilat feet, pressure relieving dressing on coccyx and buttocks as well. Pillow being used to float bilat heels. PRN in-line suctioning used with thick, creamy sputum w/ a blood-tinge. Q2H oral care performed and lips moisturized. Stat lock in place for theodore cath. Theodore cath draining clear, dark yellow urine. Catheter care performed by this RN. Nystatin powder ordered this shift and put on caitlin folds. Bowel sounds hypoactive. Abdomen soft, large and round. Double lumen left subclavian central line inserted by MD Cordoba this shift. Pt's mother has been updated of POC multiple times this shift. No other acute changes or complaints, will continue to monitor.
--- NOTE | 2021-08-19 18:17 | PC.NURSE ---
1735, ok to use pt newly inserted central line per Dr Cordoba. primary RN notified.
--- NOTE | 2021-08-19 18:31 | PC.NURSE ---
inside of pt's thigh/caitlin area erythema noted nystatin and barrier cream applied to area
--- NOTE | 2021-08-19 18:33 | PC.WOUNDNOTE ---
updated picture of pt's bottom w/ discoloration and stage 1 ulcer. 08/19/21 [id number] shift. taken by this RN
[2021-08-20] VITALS (29 sets, daily range): BP systolic 91–156; BP diastolic 43–81; PULSE 66–110; RESP 18–36; TEMP 36.7–37.7; O2SAT 85–96; BMI 34.5; BMI 36.5
--- NOTE | 2021-08-20 03:21 | PC.NURSE ---
After being turned pt desated to the 70s, O2 breath given without improvement. pt gagging on tube, stacking breaths and breathing asynchronously. RT unable to improve sats. Fent increased to 150. Christine paged, gave order for 4mg versed. Sats began to improve. Sedation currently going with prop at 80, fent at 150.
--- NOTE | 2021-08-20 06:00 | XR_ITS ---
PROCEDURE INFORMATION: Exam: XR Chest Exam date and time: 08/20/2021 6:00 AM Age: 56 years old Clinical indication: Device placement; Ett placement (vent status); Additional info: Daily while intubated TECHNIQUE: Imaging protocol: XR of the chest. Views: 1 view. COMPARISON: CR XR CHEST PORTABLE 08/19/2021 2:11 PM FINDINGS: Tubes, catheters and devices: Nasogastric tube extending below the diaphragm, the tip is not well visualized. Endotracheal tube tip 5.2 cm above the pamela. Lungs: PersistentBilateral scattered heterogeneous pulmonary opacities, infectious/inflammatory and/or pulmonary edema. Pleural spaces: No pleural effusion. No pneumothorax. Heart/Mediastinum: Unremarkable cardiomediastinal silhouette. Bones/joints: No acute osseous findings. Soft tissues: Left supraclavicular line with the tip projecting over mid SVC. IMPRESSION: PersistentBilateral scattered heterogeneous pulmonary opacities, infectious/inflammatory and/or pulmonary edema. Recommend imaging follow-up until complete resolution.
[2021-08-20 06:51] LABS: Basophils # 0.1 K/mm3 (0-0.2); Basophils % 0.3 % (0.1-2.0); Eosinophils # 0.1 K/mm3 (0.0-0.4); Eosinophils % 0.3 % (0.1-12.0); Hematocrit 34.1 % (42.0-52.0); Hemoglobin 10.9 g/dL (14.1-18.0); Lymphocytes # 0.9 K/mm3 (0.7-4.5); Lymphocytes % 4.3 % (10-50); Mean Corpuscular Hemoglobin 30.9 pg (27.0-31.2); Mean Corpuscular Volume 96.7 fl (80-94); Mean Platelet Volume 9.9 fl (7.4-10.4); Monocytes # 0.6 K/mm3 (0.1-1.0); Monocytes % 2.8 % (1.7-9.3); Neutrophils # 19.8 K/mm3 (1.8-7.8); Neutrophils % 92.3 % (37.0-80.0); Platelet Count 339 K/mm3 (142-424); Red Blood Count 3.53 M/mm3 (4.60-6.20); Red Cell Distribution Width 14.9 % (11.5-17.5)
[2021-08-20 07:02] LABS: MANUAL DIFFERENTIAL MANUAL DIFFERENTIAL (MANUAL DIFF)
[2021-08-20 07:08] LABS: Anion Gap 4.1 mEq/L (5-15); Blood Urea Nitrogen 22 mg/dl (9-20); Carbon Dioxide 34 mmol/L (22.0-30.0); Chloride 98 mmol/L (98-107); Creatinine Clearance Estimated 178 mL/min (50-200); Estimated Glomerular Filt Rate 116 ml/min (>60); GFR (African American) 140 ML/MIN (>60); Glucose 123 mg/dl (74-100); Potassium 5.1 mmoL/L (3.5-5.1); Sodium 131 mmol/L (136-145)
[2021-08-20 07:19] LABS: White Blood Count 19.8 K/mm3 (4.8-10.8)
[2021-08-20 07:40] LABS: ABG Base Excess 3.1 mmol/L (-2.4-2.3); ABG HCO3 27.6 mmhg (22.0-26.0); ABG Oxygen Saturation 86 % (90-100); ABG PCO2 43.7 mmhg (35.0-45.0); ABG PH 7.42 mmol/L (7.35-7.45); ABG PO2 50.8 mmhg (80-100); ABG TCO2 28.9 mmhg (23-27)
[2021-08-20 07:43] LABS: Allen's Test Patient Unable; Oxygen 70% %; PEEP 14; Source Left Radial; Tidal Volume 440; Vent Rate 26
--- NOTE | 2021-08-20 09:15 | P.PN_ITS ---
Internal Medicine - PN: Subj *Date: 08/20/21 *Time: 09:15 Interval history: Patient is distended this morning and nursing is concerned that he has not had a bowel movement. He has also had more edema and his breath sounds are a bit more diminished. Exam Vital signs and Labs for Last 24 Hours: Temp Pulse Resp BP Pulse Ox 98.6 F 71 34 H 92/48 L 89 L 08/20/21 06:00 08/20/21 06:45 08/20/21 06:45 08/20/21 06:45 08/20/21 06:45 Laboratory Results - last 24 hr 08/20/21 06:00: Specimen Source Left radial, O2 % 70%, ABG pH 7.42, ABG pCO2 43.7, ABG pO2 50.8 L, ABG HCO3 27.6 H, ABG Total CO2 28.9 H, ABG O2 Saturation 86 L*, ABG Base Excess 3.1 H, Teto Test Patient unable, Vent Rate 26, Tidal Volume 440, PEEP 14 08/20/21 06:15: Sodium 131 L, Potassium 5.1, Chloride 98, Carbon Dioxide 34 H, Anion Gap 4.1 L, BUN 22 H, Creatinine 0.70, Estimated Creat Clear 178, Estimated GFR 116, Est GFR ( Amer) 140, Glucose 123 H, Calcium 8.0 L 08/20/21 06:15: WBC 19.8 H, RBC 3.53 L, Hgb 10.9 L, Hct 34.1 L, MCV 96.7 H, MCH 30.9, MCHC 32.0, RDW 14.9, Plt Count 339, MPV 9.9, Neut % (Auto) 92.3 H, Lymph % (Auto) 4.3 L, [place] % (Auto) 2.8, Eos % (Auto) 0.3, Baso % (Auto) 0.3, Neut # (Auto) 19.8 H, Lymph # (Auto) 0.9, [place] # (Auto) 0.6, Eos # (Auto) 0.1, Baso # (Auto) 0.1 I & O for Last 24 hours: Intake & Output 08/17/21 08/18/21 08/19/21 08/20/21 11:59 11:59 11:59 11:59 Intake Total 3496 / 3643 2881 / 2881 3651 / 3651 3702 / 3702 Output Total 1235 / 1335 2100 / 2225 2490 / 2640 2100 / 2100 Balance 2261 / 2308 781 / 656 1161 / 1011 1602 / 1602 Weight 224 lb 13.944 oz 229 lb 9.6 oz 233 lb 8 oz 241 lb 7 oz - Constitutional no acute distress - *Routine Respiratory Exam Present: patient mechanically ventilated, decreased breath sounds - *Routine Cardiovascular Exam Present: RRR - *Routine Abdominal Exam Present: soft, normoactive bowel sounds, distended. Absent: tenderness - *Routine Extremities Exam Present: edema (Bilateral lower extremity edema). Absent: cyanosis, clubbing - *Routine Skin Exam Present: warm. Absent: rash - *Routine Neurological Exam sedated Assessment and Plan (1) COVID-19 Status: Acute Category: Medical Code(s): U07.1 - COVID-19 (2) Acute respiratory failure with hypoxia Status: Acute Category: Medical Code(s): J96.01 - Acute respiratory failure with hypoxia (3) Viral pneumonia Status: Acute Category: Medical Code(s): J12.9 - Viral pneumonia, unspecified (4) Hypertension Status: Acute Category: Medical Code(s): I10 - Essential (primary) hypertension (5) Cerebral palsy Status: Acute Category: Medical Code(s): G80.9 - Cerebral palsy, unspecified (6) Hyperlipidemia Status: Acute Category: Medical Code(s): E78.5 - Hyperlipidemia, unspecified (7) Hypokalemia Status: Acute Category: Medical Code(s): E87.6 - Hypokalemia (8) Constipation Status: Acute Category: Medical Code(s): K59.00 - Constipation, unspecified - Assessment and plan all Dx Assessment and Plan for all problems:: We will continue antibiotics and pulmonology to follow. Patient will likely need Lasix today along with a laxative. Will discuss with Dr. Mena.
--- NOTE | 2021-08-20 09:40 | PC.NURSE ---
Oral care provided every 2 hours; patient turned every two hours as per protocol
--- NOTE | 2021-08-20 09:45 | PC.NURSE ---
RESP CARE NOTE: Pt vent settings changed per Dr Blanca. Pressure Control mode, FIO2 80%, Pressure control 20 cmH2O. Will continue to monitor patient.
[2021-08-20 09:47] LABS: Lymphocytes % 3 % (10-50); Monocytes % 2 % (2-9); Neutrophils % 95 % (42-76); Total Cells Counted 100
[2021-08-20 09:48] LABS: Platelet Estimate Normal; RBC Morphology Normal
--- NOTE | 2021-08-20 12:10 | HMH.PULMPN ---
Internal Medicine - PN: Subj *Date: 08/20/21 *Time: 13:01 Interval history: Respiratory status remained relatively stable with intermittent agitation and desaturation episodes. Exam - Constitutional Constitutional:: Present: no acute distress, comfortable - HENMT Exam HENMT: Present: normocephalic - Eye Exam Eyes:: Present: normal appearance both eyes and related structures - Neck Exam Neck:: Present: normal visual inspection - Respiratory Exam Respiratory:: Present: respiratory distress, rales. Absent: wheezing - Cardiovascular Exam Cardiac:: Present: S1, S2 - GI Exam GI:: Present: soft, no tenderness, distended. Absent: guarding - Skin Exam Skin: Present: warm - Neurological Exam Neurological: Absent: alert, awake, normal cognition - Extremities Exam Extremities: Present: no cyanosis, no clubbing, edema Assessment and Plan (1) COVID-19 Status: Acute Category: Medical Code(s): U07.1 - COVID-19 (2) Acute respiratory failure with hypoxia Status: Acute Category: Medical Code(s): J96.01 - Acute respiratory failure with hypoxia (3) Viral pneumonia Status: Acute Category: Medical Code(s): J12.9 - Viral pneumonia, unspecified (4) Hypertension Status: Acute Category: Medical Code(s): I10 - Essential (primary) hypertension (5) Cerebral palsy Status: Acute Category: Medical Code(s): G80.9 - Cerebral palsy, unspecified (6) Hyperlipidemia Status: Acute Category: Medical Code(s): E78.5 - Hyperlipidemia, unspecified (7) Hypokalemia Status: Acute Category: Medical Code(s): E87.6 - Hypokalemia (8) Constipation Status: Acute Category: Medical Code(s): K59.00 - Constipation, unspecified - Assessment and plan all Dx Assessment and Plan for all problems:: #Acute hypoxic respiratory failure: #COVID-19 pneumonia: 55-year-old completed vaccination for COVID-19 pneumonia no prior respiratory complaints not on any inhalers at baseline presented with respiratory distress. D-dimer elevated at 1.05 and CRP at 79. LDH at 1096 CTA showed bilateral diffuse groundglass opacities Patient respiratory is continued decline eventually needing intubation and mechanical ventilatory support on 08/12/2021. Plan: Intubated and sedated with intermittent agitation episodes controlled with Versed. Have not witnessed this episode however not appear to be a seizures as per the nursing staff. Will change sedation to Versed along with continuation of fentanyl. Last triglyceride level 399. Patient respiratory status remained relatively stable except for intermittent episodes of agitation and asynchronous breathing leading to significant desaturations. Sedation was changed to Versed. I have changed him to pressure control 20-14 pressures and FiO2 at 80%. Auscultation bilateral improving breath sounds allowing improving infiltrates on his chest x-ray. PaO2 has remained around 50 for the last 3 days. Receiving Bactrim for stenotrophomonas. Along with cefepime. We will also continue stress dose steroids. Nasal MRSA PCR negative. Vancomycin was discontinued over the weekend. Completed 10-day course of remdesivir and dexamethasone Leukocytosis improving. Continue cefepime for 7 days along with addition of Bactrim for stenotrophomonas. We will closely monitor. Abdomen soft nontender. Continue tube feeds. Transaminases and bilirubin levels STABLE We will continue to monitor. No bowel movements. Will increase bowel regimen will consider lactulose as needed Renal function stable. Adequate urine output - Continue mechanical ventilatory support - Continue AnalgoSedation with Versed and Fentanyl with CPOT gal less than or euqal to 2 and RASS goal of 1 to 2 - VAP bundle Elevate head of the bed at 30 to 45 degrees Oral care with chlorhexidne GI ulcer prophylaxis - Famotidine 20mg IV BID Chemical DVT prophylaxis Thank you for involving pulmonary in this patient
[2021-08-20 14:37] LABS: ABG Base Excess 5.2 mmol/L (-2.4-2.3); ABG HCO3 30.3 mmhg (22.0-26.0); ABG Oxygen Saturation 92 % (90-100); ABG PH 7.38 mmol/L (7.35-7.45); ABG PO2 62.8 mmhg (80-100); ABG TCO2 31.9 mmhg (23-27)
[2021-08-20 14:41] LABS: Allen's Test Patient Unable; Oxygen 80% %; Source Right Radial; Vent Rate 26
[2021-08-20 14:42] LABS: ABG PCO2 52.3 mmhg (35.0-45.0)
--- NOTE | 2021-08-20 15:15 | DIET.NUTRFU ---
RD reviewed chart and TF regimen. Propofal was discontinued on 08/20 which was contributing to caloric intake. Current TF is providing 1725kcal/day and 72gm protein with CBW of 105kg. Provider noted increased edema with weight gains, lasix given on 08/20. Reviewed updated labs on 08/20: Na 131L, K 5.1, BUN 22H, Cr 0.70. Spoke to nursing and TF is currently on hold for high residuals. Using adjusted BW of 81kg his needs are 2031kcal and 120gm protein. Will increase Pulmocare to 60ml/hr providing 2070kcal, 86gm protein with 1083ml free water. Will also add 2 scoops of beneprotein with 240ml of bolus flush each providing 480ml and 28gm protein, adjusted flush to 100ml E7l=089ip/day with total fluid of 2163ml/.day (21ml/kg). Will continue to monitor TF tolerance, weights and labs.
[2021-08-21] VITALS (34 sets, daily range): BP systolic 115–158; BP diastolic 59–81; PULSE 88–126; RESP 18–38; TEMP 36.7–37.7; O2SAT 85–94; BMI 34.0
[2021-08-21 05:31] LABS: Basophils # 0.2 K/mm3 (0-0.2); Basophils % 0.7 % (0.1-2.0); Eosinophils # 0.2 K/mm3 (0.0-0.4); Hematocrit 32.9 % (42.0-52.0); Hemoglobin 10.9 g/dL (14.1-18.0); Lymphocytes # 0.8 K/mm3 (0.7-4.5); Lymphocytes % 3.6 % (10-50); Mean Corpuscular Hemoglobin 31.1 pg (27.0-31.2); Mean Corpuscular Volume 94.1 fl (80-94); Mean Platelet Volume 9.4 fl (7.4-10.4); Monocytes # 0.9 K/mm3 (0.1-1.0); Neutrophils # 20.4 K/mm3 (1.8-7.8); Neutrophils % 90.7 % (37.0-80.0); Platelet Count 343 K/mm3 (142-424); Red Blood Count 3.49 M/mm3 (4.60-6.20); Red Cell Distribution Width 15.1 % (11.5-17.5); White Blood Count 22.5 K/mm3 (4.8-10.8)
[2021-08-21 05:36] LABS: Chloride 95 mmol/L (98-107); Potassium 4.9 mmoL/L (3.5-5.1); Sodium 132 mmol/L (136-145)
[2021-08-21 05:37] LABS: MANUAL DIFFERENTIAL MANUAL DIFFERENTIAL (MANUAL DIFF)
[2021-08-21 05:39] LABS: Blood Urea Nitrogen 26 mg/dl (9-20); Creatinine Clearance Estimated 205 mL/min (50-200); Estimated Glomerular Filt Rate 138 ml/min (>60); GFR (African American) 167 ML/MIN (>60)
[2021-08-21 05:40] LABS: Anion Gap 6.9 mEq/L (5-15); Carbon Dioxide 35 mmol/L (22.0-30.0); Glucose 110 mg/dl (74-100)
--- NOTE | 2021-08-21 06:00 | XR_ITS ---
PROCEDURE INFORMATION: Exam: XR Chest Exam date and time: 08/21/2021 6:00 AM Age: 56 years old Clinical indication: Device placement; Ett placement (vent status); Additional info: Daily while intubated TECHNIQUE: Imaging protocol: XR of the chest. Views: 1 view. COMPARISON: CR XR CHEST PORTABLE 08/20/2021 4:53 AM FINDINGS: Tubes, catheters and devices: Stable support tubes and catheter. Lungs: Stable patchy bilateral infiltrates with mid and lower lung predominance. Pleural spaces: Unremarkable. No pleural effusion. No pneumothorax. Heart/Mediastinum: Unremarkable. No cardiomegaly. Bones/joints: Unremarkable. IMPRESSION: Essentially stable appearance compared to the previous day, with findings above.
[2021-08-21 06:05] LABS: Lymphocytes % 10 % (10-50); Monocytes % 2 % (2-9); Neutrophils % 88 % (42-76); Platelet Estimate Normal; Stomatocytes 1+; Total Cells Counted 100
[2021-08-21 06:57] LABS: ABG Base Excess 5.2 mmol/L (-2.4-2.3); ABG HCO3 30.1 mmhg (22.0-26.0); ABG Oxygen Saturation 88 % (90-100); ABG PO2 54.4 mmhg (80-100); ABG TCO2 31.7 mmhg (23-27)
[2021-08-21 07:02] LABS: Allen's Test Patient Unable; Oxygen 80% %; PEEP 20/14; Vent Rate 26
[2021-08-21 07:03] LABS: Source Left Radial
[2021-08-21 07:04] LABS: ABG PCO2 50.3 mmhg (35.0-45.0)
--- NOTE | 2021-08-21 07:49 | CA_ITS ---
APPROVED REPORT Bilateral Lower Extremity Venous Study for DVT. Grounds And Nursery Specialist: Danna Wood RVT Indications Shortness of breath r/o dvt,COVID,PT INTUBATED Vein Imaging CFV (R): compressive, spontaneous, phasic, augmentation FEM (R): compressive, spontaneous, phasic, augmentation POP (R): compressive, spontaneous, phasic, augmentation PTV (R): Compressible GSV (R): Compressible Peroneals (R):Compressible GAS (R): Compressible CFV (L): compressive, spontaneous, phasic, augmentation FEM (L): compressive, spontaneous, phasic, augmentation POP (L): Thrombus PTV (L): Thrombus GSV (L): Compressible Peroneals (L):Compressible GAS (L): Compressible Findings Study suggests DVT of the left popliteal and posterior tibial vein, Other veins of the left lower extremity are normal. Study suggests no evidence of DVT or SVT of the right lower extrmities. Conclusion Study suggests DVT of the left popliteal and posterior tibial vein, Other veins of the left lower extremity are normal. Study suggests no evidence of DVT or SVT of the right lower extrmities. Critical Notification Physician Notified Date: 08/21/2021 Time: 10:02 Physician Name: Dr Blanca Electronically signed by : Teto Reeder MD 08/21/2021 16:08:35
--- NOTE | 2021-08-21 07:57 | PC.NURSE ---
No acute changes this shift. Pt has remained on versed and fentanyl gtt. Boluses of versed administered as needed this shift. Pt has desat some this shift with slow recovery at times. Pt also has been tachycardic at times this shift. Low grade fever. Medicated per nov. Vent settings are as follows: Pressure control, FiO2 80%, R 26, PEEP 14. Rianna notified of Abg results. Report given to Amalia Hinds RN.
--- NOTE | 2021-08-21 08:27 | HMH.ACPN2 ---
Internal Medicine - PN: Subj *Date: 08/21/21 *Time: 08:27 Interval history: Patient remains mechanically ventilated. He had good diuresis yesterday with weight down 17lbs this morning. His bowels have not moved. WBC is further elevated. Exam Vital signs and Labs for Last 24 Hours: Temp Pulse Resp BP Pulse Ox 99.3 F 116 H 33 H 153/75 H 87 L 08/21/21 05:08 08/21/21 07:00 08/21/21 07:00 08/21/21 07:00 08/21/21 07:00 Laboratory Results - last 24 hr 08/20/21 06:15: Total Counted 100, Neutrophils % (Manual) 95 H, Lymphocytes % (Manual) 3 L, Monocytes % (Manual) 2, Platelet Estimate Normal, RBC Morphology Normal 08/20/21 13:48: Specimen Source Right radial, O2 % 80%, ABG pH 7.38, ABG pCO2 52.3 H, ABG pO2 62.8 L, ABG HCO3 30.3 H, ABG Total CO2 31.9 H, ABG O2 Saturation 92, ABG Base Excess 5.2 H, Teto Test Patient unable, Vent Rate 26, PEEP Pc 20/14 08/21/21 05:10: Sodium 132 L, Potassium 4.9, Chloride 95 L, Carbon Dioxide 35 H, Anion Gap 6.9, BUN 26 H, Creatinine 0.60 L, Estimated Creat Clear 205, Estimated GFR 138, Est GFR ( Amer) 167, Glucose 110 H, Calcium 8.0 L 08/21/21 05:10: WBC 22.5 H*, RBC 3.49 L, Hgb 10.9 L, Hct 32.9 L, MCV 94.1 H, MCH 31.1, MCHC 33.0, RDW 15.1, Plt Count 343, MPV 9.4, Neut % (Auto) 90.7 H, Lymph % (Auto) 3.6 L, Andrew % (Auto) 4.0, Eos % (Auto) 1.0, Baso % (Auto) 0.7, Neut # (Auto) 20.4 H, Lymph # (Auto) 0.8, Andrew # (Auto) 0.9, Eos # (Auto) 0.2, Baso # (Auto) 0.2, Total Counted 100, Neutrophils % (Manual) 88 H, Lymphocytes % (Manual) 10, Monocytes % (Manual) 2, Platelet Estimate Normal, Stomatocytes 1+ 08/21/21 06:00: ABG Lactate 1.0 08/21/21 06:00: Specimen Source Left radial, O2 % 80%, ABG pH 7.40, ABG pCO2 50.3 H, ABG pO2 54.4 L, ABG HCO3 30.1 H, ABG Total CO2 31.7 H, ABG O2 Saturation 88 L, ABG Base Excess 5.2 H, Teto Test Patient unable, Vent Rate 26, PEEP 20/14 I & O for Last 24 hours: Intake & Output 08/18/21 08/19/21 08/20/21 08/21/21 11:59 11:59 11:59 11:59 Intake Total 2881 / 2881 3651 / 3651 3702 / 3702 2183 / 2183 Output Total 2100 / 2225 2490 / 2640 2100 / 2100 5080 / 5080 Balance 781 / 656 1161 / 1011 1602 / 1602 -2897 / -2897 Weight 229 lb 9.6 oz 233 lb 8 oz 255 lb 1.197 oz 238 lb Microbiology Reports for the Last 24 Hours: Microbiology 08/15/21 11:19 Blood Blood Culture - Final NO GROWTH AFTER 5 DAYS 08/15/21 11:19 Blood Blood Culture - Final NO GROWTH AFTER 5 DAYS - Constitutional no acute distress - *Routine Respiratory Exam Present: patient mechanically ventilated, decreased breath sounds - *Routine Cardiovascular Exam Present: RRR - *Routine Abdominal Exam Present: distended Comments: bowel sounds present - *Routine Extremities Exam Present: pulses intact Comments: bilateral LAKE hose in place with trace BLE edema present - *Routine Skin Exam Present: warm - *Routine Neurological Exam sedated Assessment and Plan (1) COVID-19 Status: Acute Category: Medical Code(s): U07.1 - COVID-19 (2) Acute respiratory failure with hypoxia Status: Acute Category: Medical Code(s): J96.01 - Acute respiratory failure with hypoxia (3) Viral pneumonia Status: Acute Category: Medical Code(s): J12.9 - Viral pneumonia, unspecified (4) Hypertension Status: Acute Category: Medical Code(s): I10 - Essential (primary) hypertension (5) Cerebral palsy Status: Acute Category: Medical Code(s): G80.9 - Cerebral palsy, unspecified (6) Hyperlipidemia Status: Acute Category: Medical Code(s): E78.5 - Hyperlipidemia, unspecified (7) Hypokalemia Status: Acute Category: Medical Code(s): E87.6 - Hypokalemia (8) Constipation Status: Acute Category: Medical Code(s): K59.00 - Constipation, unspecified - Assessment and plan all Dx Assessment and Plan for all problems:: Further per Dr. Mena.
--- NOTE | 2021-08-21 08:39 | PC.NURSE ---
RESP CARE NOTE: Pt tachypnic,diaphoretic, and tachycardic at this time. SPO2 remaining 86-87% on 80% FIO2 and HR increased to 125-135bpm. FIO2 increased to 90% FIO2,will monitor.
--- NOTE | 2021-08-21 08:47 | PC.NURSE ---
[address] Blanca. New orders at this time: carotid doppler ble, D Dimer
--- NOTE | 2021-08-21 09:00 | PC.NURSE ---
late entry: pt was noted to be tachycardic at 120, tachypneic in the 40's and diaphoretic. pt was noted to be afebrile as well. pt sedation was increased. Versed 0.06mcg - 0.07mcg Fentanyl 100mcg to 112mcg pt tolerated changes well. tachycardia and tachypnea resolved.
[2021-08-21 09:17] LABS: D-Dimer 6.84 ug/mL (0.0-0.5)
--- NOTE | 2021-08-21 09:36 | PC.NURSE ---
[address] Blanca of D Dimer result of 6.84. NNO venous doppler being completed by echo lab at this time
[2021-08-21 10:30] LABS: PTT Heparin (inpatient only) 23.5 Seconds (23.6-34.0)
--- NOTE | 2021-08-21 10:37 | XR_ITS ---
PROCEDURE: XR KUB CLINICAL INDICATION: Distension COMPARISON: CR XR CHEST PORTABLE from 08/21/2021 FINDINGS: [place] catheter is present. Nasogastric tube is present with tip in the region the pyloric area of the stomach. Nonspecific bowel gas pattern. There is diffuse bilateral airspace disease of the mid and lower lung zones. IMPRESSION: No evidence of intestinal obstruction. NG tube in good position. Dictated by: Teto Reeder MD 08/21/2021 13:36 Teto Reeder MD in [facility] 08/21/2021 13:36
--- NOTE | 2021-08-21 10:56 | HMH.PULMPN ---
Internal Medicine - PN: Subj *Date: 08/21/21 *Time: 12:05 Interval history: No acute respiratory vents overnight. Exam - Constitutional Constitutional:: Present: comfortable - HENMT Exam HENMT: Present: normocephalic, atraumatic - Eye Exam Eyes:: Present: normal appearance both eyes and related structures - Neck Exam Neck:: Present: normal visual inspection - Respiratory Exam Respiratory:: Present: respiratory distress, rales. Absent: wheezing - Cardiovascular Exam Cardiac:: Present: S1, S2 - GI Exam GI:: Present: soft - Skin Exam Skin: Present: warm - Neurological Exam Neurological: Absent: alert, awake, normal cognition - Extremities Exam Extremities: Present: no cyanosis, no clubbing, edema Assessment and Plan (1) COVID-19 Status: Acute Category: Medical Code(s): U07.1 - COVID-19 (2) Acute respiratory failure with hypoxia Status: Acute Category: Medical Code(s): J96.01 - Acute respiratory failure with hypoxia (3) Viral pneumonia Status: Acute Category: Medical Code(s): J12.9 - Viral pneumonia, unspecified (4) Hypertension Status: Acute Category: Medical Code(s): I10 - Essential (primary) hypertension (5) Cerebral palsy Status: Acute Category: Medical Code(s): G80.9 - Cerebral palsy, unspecified (6) Hyperlipidemia Status: Acute Category: Medical Code(s): E78.5 - Hyperlipidemia, unspecified (7) Hypokalemia Status: Acute Category: Medical Code(s): E87.6 - Hypokalemia (8) Constipation Status: Acute Category: Medical Code(s): K59.00 - Constipation, unspecified - Assessment and plan all Dx Assessment and Plan for all problems:: #Acute hypoxic respiratory failure: #COVID-19 pneumonia: 55-year-old completed vaccination for COVID-19 pneumonia no prior respiratory complaints not on any inhalers at baseline presented with respiratory distress. D-dimer elevated at 1.05 and CRP at 79. LDH at 1096 CTA showed bilateral diffuse groundglass opacities Patient respiratory is continued decline eventually needing intubation and mechanical ventilatory support on 08/12/2021. Plan: Intubated and sedated with Versed and fentanyl. No agitation episodes in the last 12 hours. Respiratory system relatively stable with no agitation episode after changing the sedation. PO2 decreased from 60 yesterday to 50 this morning. FiO2 was increased to 85%. He continued to remain on pressure control 20-14. Chest x-ray no acute change from yesterday however overall improving infiltrates. O2 saturations maintained around 90 to 92%. Lower extremity Doppler positive for DVT, f/u final read. Will initiate patient on heparin drip. Most recent echo from 08/19 did not show evidence of RV strain. LV diastolic dysfunction, with normal RV size and contractility. Receiving Bactrim for stenotrophomonas along with cefepime. We will also continue stress dose steroids. Nasal MRSA PCR negative. Completed 10-day course of remdesivir and dexamethasone Leukocytosis worsened from yesterday. Continue cefepime for 7 days along with Bactrim for stenotrophomonas. We will closely monitor. Abdomen soft nontender. Continue tube feeds. Transaminases and bilirubin levels STABLE increase the bowel regimen to as needed MiraLAX and lactulose for bowel movements. Follow with KUB. Renal function stable. Adequate urine output - Continue mechanical ventilatory support - Continue AnalgoSedation with Versed and Fentanyl with CPOT gal less than or euqal to 2 and RASS goal of 1 to 2 - VAP bundle Elevate head of the bed at 30 to 45 degrees Oral care with chlorhexidne GI ulcer prophylaxis - Famotidine 20mg IV BID Chemical DVT prophylaxis Thank you for involving pulmonary in this patient care. We will continue to follow.
--- NOTE | 2021-08-21 11:30 | HMH.PHAHEP ---
[facility] Heparin Dosing - Demographic Data Admission date:: 08/21/21 Date: 08/21/21 Time: 11:30 Allergies/Adverse Reactions: Allergies Allergy/AdvReac Type Severity Reaction Status Date / Time Wbavcyx-Shs-Koc Reductase Allergy Verified 08/08/21 14:33 Inhibitor Height: 1.78 m Weight: 107.955 kg - Indication Medication therapy:: Heparin Patient Problems: Current Active Problems Viral syndrome (Acute) COVID-19 (Acute) Viral pneumonia (Acute) Acute respiratory failure with hypoxia (Acute) Cerebral palsy (Acute) Hypertension (Chronic) Hyperlipidemia (Acute) Hypokalemia (Acute) Constipation (Acute) Acute respiratory failure due to COVID-19 (Acute) Constipation (Acute) Hyperkalemia (Acute) Hyponatremia (Acute) Gross hematuria (Acute) CVA?: No Bleeding problem?: No Kidney disease?: No [place]?: No Desired PTT range:: 50-70 seconds - Labs Anticoagulation Lab Results:: 08/21/21 05:10 Hgb 10.9 L Hct 32.9 L Plt Count 343 - Monitoring Dose Monitor 2 Date: 08/21/21 Time: 14:00 PTT Result:: 50.4 Infusion Rate:: CONTINUE WITH HEPARIN 1900 UNITS/HR (38 ML/HR) Dose Monitor 1 Date: 08/21/21 Time: 11:31 PTT Result:: PTT 23.5 Infusion Rate:: STARTED HEPARIN DRIP AT 1900 UNITS/HR (38 ML/HR) WITH A HEPARIN 8500 UNIT BOLUS. SUSPECTS PE AT THIS POINT. Dose Monitor 3 Date: 08/21/21 Time: 22:13 PTT Result:: 39.4 Infusion Rate:: 2300 UNITS/HR (46 ML/HR) Dose Monitor 4 Date: 08/22/21 Time: 05:30 PTT Result:: 76.0 Infusion Rate:: 2200 UNITS/HR (44 ML/HR) Dose Monitor 5 Date: 08/22/21 Time: 13:30 PTT Result:: 73.5 Infusion Rate:: 2200 UNITS/HR (44 ML/HR) Dose Monitor 6 Date: 08/23/21 Time: 06:11 PTT Result:: 68.6 Infusion Rate:: 2200 UNITS/HR (44 ML/HR) Dose Monitor 7 Date: 08/24/21 Time: 06:00 PTT Result:: 69.0 Infusion Rate:: 2200 UNITS/HR (44 ML/HR) Dose Monitor 8 Date: 08/25/21 Time: 06:00 PTT Result:: 62.6 Infusion Rate:: 2200 UNITS/HR (44 ML/HR) Dose Monitor 9 Date: 08/26/21 Time: 06:00 PTT Result:: 86.3 Infusion Rate:: 2100 UNITS/HR (42 ML/HR) Dose Monitor 10 Date: 08/26/21 Time: 13:00 PTT Result:: 80.0 Infusion Rate:: 2000 UNITS/HR (40 ML/HR) Dose Monitor 11 Date: 08/26/21 Time: 21:00 PTT Result:: 84.1 Infusion Rate:: 1900 UNITS/HR (39 ML/HR) Dose Monitor 12 Date: 08/27/21 Time: 05:00 PTT Result:: 71.7 Infusion Rate:: 1900 UNITS/HR (38 ML/HR) Dose Monitor 13 Date: 08/27/21 Time: 12:00 PTT Result:: 58.9 Infusion Rate:: 1950 UNITS/HR (39 ML/HR) INCREASED SLIGHTLY DUE TO CONTINUOUS DROP IN PTT OVER THE LAST DAY EVEN THOUGH PTT IS IN THE THERAPEUTIC RANGE AT THIS TIME. Dose Monitor 14 Date: 08/27/21 Time: 21:00 PTT Result:: 49.3 Infusion Rate:: INCREASED TO 43 ML/HR (2150 UNITS/HR) AND BOLUSED HEPARIN 3000 UNITS. Dose Monitor 15 Date: 08/28/21 Time: 06:00 PTT Result:: 109.3 Infusion Rate:: DECREASE TO 40 ML/HR (2000 UNITS/HR) - Core Measures Is INR > or = 2 at discharge?: No Most Recent Labs:: Laboratory Results - last 24 hr 08/20/21 13:48: Specimen Source Right radial, O2 % 80%, ABG pH 7.38, ABG pCO2 52.3 H, ABG pO2 62.8 L, ABG HCO3 30.3 H, ABG Total CO2 31.9 H, ABG O2 Saturation 92, ABG Base Excess 5.2 H, Teto Test Patient unable, Vent Rate 26, PEEP Pc 20/14 08/21/21 05:10: Sodium 132 L, Potassium 4.9, Chloride 95 L, Carbon Dioxide 35 H, Anion Gap 6.9, BUN 26 H, Creatinine 0.60 L, Estimated Creat Clear 205, Estimated GFR 138, Est GFR ( Amer) 167, Glucose 110 H, Calcium 8.0 L 08/21/21 05:10: WBC 22.5 H*, RBC 3.49 L, Hgb 10.9 L, Hct 32.9 L, MCV 94.1 H, MCH 31.1, MCHC 33.0, RDW 15.1, Plt Count 343, MPV 9.4, Neut % (Auto) 90.7 H, Lymph % (Auto) 3.6 L, [place] % (Auto) 4.0, Eos % (Auto) 1.0, Baso % (Auto) 0.7, Neut # (Auto) 20.4 H, Lymph # (Auto) 0.8,
--- NOTE | 2021-08-21 12:16 | CT_ITS ---
PROCEDURE: CT ANGIO CHEST PE PROTOCOL CLINCIAL INDICATION: Hypoxia Covid19 COMPARISON: CT CT ANGIO CHEST PE PROTOCOL from 08/10/2021 TECHNIQUE: IV Contrast: 70ML Isovue 370 Axial images obtained with sagittal and coronal reformats. All CT scans at the facility use one or more dose reduction, viz: automated exposure control, ma/kV adjustment per patient size (including targeted exams where dose is matched to indication, i.e. head), or iterative reconstruction technique. FINDINGS: HEART AND MEDIASTINAL STRUCTURES: No evidence of central or segmental pulmonary embolus. The subsegmental arteries are not well opacified. No evidence of aortic aneurysm or dissection. There is an endotracheal tube present. The tip is in good position 3.6 cm above the pamela. Nasogastric tube is present. The tip is in the region of the duodenal bulb. A left subclavian central venous line is present. The tip is not well delineated due to opacified superior vena cava. The tip however is at or below the right atrium. LUNGS AND PLEURAL SPACES: There is diffuse bilateral ground-glass opacification of the lungs with more dense consolidation in the lower lobes. There space disease has progressed since the previous exam. No evidence of pneumothorax or pneumomediastinum. BONY STRUCTURES: No acute bony abnormalities apparent. UPPER ABDOMEN: Unremarkable. ADDITIONAL FINDINGS: No other significant abnormalities. IMPRESSION: No obvious pulmonary embolus. Progression of diffuse bilateral airspace disease consistent with worsening Covid19 pneumonia Dictated by: Teto Reeder MD 08/21/2021 15:15 Teto Reeder MD in [facility] 08/21/2021 15:15
--- NOTE | 2021-08-21 12:16 | CT_ITS ---
PROCEDURE: CT SINUS WO CON CLINICAL HISTORY: Sepsis COMPARISON: No exams were available for comparison TECHNIQUE: Axial images obtained with sagittal and coronal reformats. All CT scans at the facility use one or more dose reduction, viz: automated exposure control, ma/kV adjustment per patient size (including targeted exams where dose is matched to indication, i.e. head), or iterative reconstruction technique. FINDINGS: No sinus air-fluid level. No significant mucosal thickening. Minimal mucosal thickening is present along the floor of the right sphenoid sinus the medially. There is mild rightward nasal septal deviation. The ostiomeatal units are patent. There is complete opacification of the mastoid air cells bilaterally as well as bilateral middle ear opacification. There is mild dysconjugate gaze. There is an endotracheal tube present. IMPRESSION: 1. No evidence of acute sinusitis. Only minimal mucosal thickening of the sphenoid sinus on the right. 2. Bilateral mastoid sinus opacification and bilateral middle ear opacification 3. Minimal dysconjugate gaze Dictated by: Teto Reeder MD 08/21/2021 15:37 Teto Reeder MD in [facility] 08/21/2021 15:37
--- NOTE | 2021-08-21 15:29 | PC.NURSE ---
assisted with transport of patient to ct with respiratory and readiology. during the ct patient started to show signs of distress low o2 sat and respiratory rate of 40-50 a min. increased versed to 0.09 mcg/kg/min. after 15minutes thee patient continued to arouse so increased to 0.1mcg/kg/min. patient appeared more comofrtable and continued with the ct. patient returned to floor in stable condition. relayed to primary nurse of change in versed gtt.
--- NOTE | 2021-08-21 16:17 | PC.NURSE ---
Pt's mother is noted to be his POA /decision maker. PT mother at this time is critically ill as well. It was discussed with pt mother Zane Nelson that if for some reason she is unable to make medical decisions for him who did she want to designate as his decision maker. Viviana/mother states she wishes for Adilia Russell and Gerry russell to make decisions for him if she is unable. Spoke with Adilia and Geryr they are agreeable to be decision maker for this pt.
--- NOTE | 2021-08-21 16:42 | PC.NURSE ---
pt was being turned in bed and repositioned, pt heels floated off bed, hugo hose in place, not skin issues noted to ble. wound/bruise/discolored area noted to bottom. stage 2 to gluteal cleft. arms elevated and floated off bed. head repositioned on bed.
[2021-08-21 17:20] LABS: PTT Heparin (inpatient only) 50.4 Seconds (23.6-34.0)
--- NOTE | 2021-08-21 17:59 | PC.NURSE ---
paged Cecilia in pharmacy r/t PTT of 50.4. per cecilia keep heparin at the same rate and draw another PTT in 4 hrs
--- NOTE | 2021-08-21 19:05 | PC.WOUNDNOTE ---
Addendum entered by Desirae Hinds RN 08/21/21 19:09: picture taken at the beginning of on 08/21 at 0900 Original Note:
--- NOTE | 2021-08-21 22:13 | XR_ITS ---
PROCEDURE INFORMATION: Exam: XR Chest Exam date and time: 08/21/2021 10:13 PM Age: 56 years old Clinical indication: Other: Post rapid response for respiratory distress; Additional info: Rapid response respiratory distress vent patient TECHNIQUE: Imaging protocol: XR of the chest. Views: 1 view. COMPARISON: CR XR CHEST PORTABLE 08/21/2021 5:06 AM FINDINGS: Tubes, catheters and devices: Endotracheal tube, and enteric tube unchanged in position. Left central line unchanged in position. Lungs: Lung opacities unchanged from prior. Pleural spaces: Unremarkable. No pleural effusion. No pneumothorax. Heart/Mediastinum: Unremarkable. No cardiomegaly. Bones/joints: Unremarkable. IMPRESSION: Stable chest examination.
[2021-08-21 22:26] LABS: ABG Base Excess 5.2 mmol/L (-2.4-2.3); ABG HCO3 29.7 mmhg (22.0-26.0); ABG Oxygen Saturation 92 % (90-100); ABG PCO2 47.3 mmhg (35.0-45.0); ABG PH 7.42 mmol/L (7.35-7.45); ABG PO2 61.3 mmhg (80-100); ABG TCO2 31.2 mmhg (23-27)
[2021-08-21 22:27] LABS: Allen's Test Acceptable; Oxygen 100 %; PEEP 15; Source Right Radial
[2021-08-21 22:51] LABS: PTT Heparin (inpatient only) 39.4 Seconds (23.6-34.0)
--- NOTE | 2021-08-21 23:28 | HMH.RR ---
Acute Rapid Response Note - Subjective Date Responded: 08/21/21 Time Responded: 22:00 Provider Note: called sec to low sat on vent - has recent dx of dvt on heparin and has covid-19 with resp failure - - Objective Findings: Vital Signs - Last 4 Hours Temperature 98.0 F 08/21/21 15:00 Temperature Source Rectal 08/21/21 15:00 Pulse Rate 120 H 08/21/21 22:46 Respiratory Rate 28 H 08/21/21 19:32 Blood Pressure 133/65 08/21/21 19:32 Blood Pressure Mean 87 08/21/21 19:32 Blood Pressure Source Automatic Cuff 08/21/21 19:32 Blood Pressure Position Supine 08/21/21 19:32 02 Sat by Pulse Oximetry 89 L 08/21/21 19:32 Oxygen Delivery Method 08/21/21 19:32 Oxygen Flow Rate (LPM) 90 08/21/21 18:00 Lab Results for Past 12 Hours 08/21/21 22:23: Specimen Source Right radial, O2 % 100, ABG pH 7.42, ABG pCO2 47.3 H, ABG pO2 61.3 L, ABG HCO3 29.7 H, ABG Total CO2 31.2 H, ABG O2 Saturation 92, ABG Base Excess 5.2 H, Teto Test Acceptable, PEEP 15 08/21/21 22:13: APTT 39.4 H 08/21/21 15:43: APTT 50.4 H* My Orders Category Date Time Status Chest XR -- portable [XR chest portable] Stat Exams 08/21/21 22:13 Taken - Radiology Findings #1 Xray Reviewed: Chest Image Reviewed: Yes I reviewed the patient's radiology image ED XR Results: Abnormal (rad report pending no def pxt ) Rapid Response Exam - General General appearance: other (sedated on vent ) - Head Head exam: atraumatic - Eye Eye exam: Present: PERRL, EOMI - ENT ENT exam: Present: other (intubated ) - Neck Neck exam: Present: trachea midline - Respiratory Respiratory exam: Present: other (on vent w/o sq air ) - Cardiovascular Cardiovascular exam: Present: tachycardia - Abdominal Exam Abdominal exam: Present: soft - Extremities Exam Extremities exam: Present: other (lower ext swelling ) - Neurological Exam Neurological exam: Present: other (no posturing ) - Skin Skin exam: Present: intact RR Procedures/Assess/Plan (1) Acute respiratory failure due to COVID-19 Status: Acute (2) COVID-19 Status: Acute - Assessment and plan all Dx Assessment and Plan for all problems:: possible pul emboli or worse covid-19 - abg ok and has improved at this time
--- NOTE | 2021-08-21 23:40 | PC.NURSE ---
per Dr. Sanchez keep o2 at 1005
--- NOTE | 2021-08-21 23:40 | PC.NURSE ---
per DR. SHARMA KEEP O2 @ 100% TO HELP KEEP PATIENTS SATS UP. PT KEEPS DESATS INTO THE 70'S WE BAGGED THE PT FOR 30 MINUTES WHEN PT IS PUT BACK ON THE VENT HE DESATS BACK DOWN INTO THE LOW 80'S AND HIGH 70'S. wITH THE 100% O2 SET ON THE VENT PT IS MAINTAINING IN THE HIGH 80'S.
[2021-08-22] VITALS (29 sets, daily range): BP systolic 89–162; BP diastolic 42–79; PULSE 72–130; RESP 2–34; TEMP 37.2–38.8; O2SAT 89–96; BMI 34.0
--- NOTE | 2021-08-22 01:02 | ECG_ITS ---
APPROVED REPORT Exam: Resting ECG HR:126 bpm ECG Measurements Heart Rate 126 AXES MA 150 P 43 QRSd 80 QRS 80 QT 288 T 49 QTc 417 Conclusion Sinus tachycardia Otherwise normal ECG Electronically signed by : Mehul Stevenson MD 08/22/2021 08:32:20
--- NOTE | 2021-08-22 03:45 | PC.NURSE ---
Pt O2 declined and maintained 85%. MD Blanca notified @ 2147. New orders received to bag pt until O2 sats up then change vent settings to volume control, 80% FiO2, PEEP 14, TV 460, R26. If it happens again don't call. Notify RT and bag pt until O2 sat increases. Lasix 60 mg IV. Versed 2 mg. Orders carried out. After bagging pt via RT, pt was placed on vent with new settings. O2 desat again. Pt was then bagged via RT. Pt sats declined. O2 sat 75% and RR response was called @ 2209. MD Sanchez responded. CXR, Abg was obtained. Pt bagged then placed back on vent. FiO2 was changed to 100% per Daniel orders. 2257 [facility] watch consulted for aPTT. New orders received to give 4,000 unit bolus. Increase Heparin gtt to 46 ml/hr. Next aPTT @ 0500. 2330 MD Alfaro updated on pt condition. HR tachycardic. Sedation increased. Fentanyl titrated from prior shift 112mcg/hr to 120 mcg/hr. New orders received and carried out. Lopressor 5 mg IV 0100 Pt tachycardic. HR 130. EKG obtained. Versed titrated from 0.1 mg/kg/hr to 0.15 mg/kg/hr. MD Alfaro notified. New orders received. Metoprolol tartrate 12.5 mg PO to be given via NG. Orders carried out. 0245 Pt hypotensive. Sedation decreased.Versed titrated to 0.06 mg/kg/hr. Fentanyl titrated to 100 mcg/hr.
--- NOTE | 2021-08-22 06:00 | XR_ITS ---
PROCEDURE INFORMATION: Exam: XR Chest Exam date and time: 08/22/2021 6:00 AM Age: 56 years old Clinical indication: Device placement; Ett placement (vent status); Additional info: Daily while intubated TECHNIQUE: Imaging protocol: XR of the chest. Views: 1 view. COMPARISON: CR XR CHEST PORTABLE 08/21/2021 10:27 PM FINDINGS: Tubes, catheters and devices: Left subclavian central line is stable. Tip of ET tube lies 6.5 cm from the pamela. Tip of NG tube lies below the GE junction, however tip is not included on the study. Lungs: Patchy airspace disease bilaterally unchanged. Pleural spaces: Unremarkable. No pleural effusion. No pneumothorax. Heart/Mediastinum: Stable cardiac size. Diaphragm: There is nonspecific elevation of the right hemidiaphragm. Bones/joints: Unremarkable. IMPRESSION: No significant change.
[2021-08-22 06:35] LABS: Basophils # 0.1 K/mm3 (0-0.2); Basophils % 0.4 % (0.1-2.0); Eosinophils # 0.1 K/mm3 (0.0-0.4); Eosinophils % 0.3 % (0.1-12.0); Hematocrit 34.1 % (42.0-52.0); Hemoglobin 10.7 g/dL (14.1-18.0); Lymphocytes # 0.6 K/mm3 (0.7-4.5); Lymphocytes % 2.4 % (10-50); Mean Corpuscular HGB Conc 31.4 g/dL (31.8-35.4); Mean Corpuscular Hemoglobin 30.9 pg (27.0-31.2); Mean Corpuscular Volume 98.6 fl (80-94); Mean Platelet Volume 9.4 fl (7.4-10.4); Monocytes # 1.1 K/mm3 (0.1-1.0); Monocytes % 4.3 % (1.7-9.3); Neutrophils # 23.8 K/mm3 (1.8-7.8); Neutrophils % 92.6 % (37.0-80.0); Platelet Count 396 K/mm3 (142-424); Red Blood Count 3.46 M/mm3 (4.60-6.20); Red Cell Distribution Width 14.6 % (11.5-17.5); White Blood Count 25.7 K/mm3 (4.8-10.8)
[2021-08-22 06:36] LABS: MANUAL DIFFERENTIAL MANUAL DIFFERENTIAL (MANUAL DIFF)
[2021-08-22 06:53] LABS: Chloride 91 mmol/L (98-107); Potassium 5.2 mmoL/L (3.5-5.1); Sodium 131 mmol/L (136-145)
[2021-08-22 06:56] LABS: Anion Gap 7.2 mEq/L (5-15); Blood Urea Nitrogen 25 mg/dl (9-20); Carbon Dioxide 38 mmol/L (22.0-30.0); Creatinine Clearance Estimated 153 mL/min (50-200); Estimated Glomerular Filt Rate 99 ml/min (>60); GFR (African American) 120 ML/MIN (>60)
[2021-08-22 06:57] LABS: Calcium 7.9 mg/dl (8.4-10.2); Glucose 115 mg/dl (74-100)
--- NOTE | 2021-08-22 07:03 | PC.NURSE ---
awaiting results for aPTT.
--- NOTE | 2021-08-22 07:13 | PC.NURSE ---
Spoke with [facility] about aPTT. New orders received. Heparin at 220 units/hr. 44 ml/hr.
[2021-08-22 07:53] LABS: ABG Base Excess 6.5 mmol/L (-2.4-2.3); ABG HCO3 32.2 mmhg (22.0-26.0); ABG Oxygen Saturation 97 % (90-100); ABG PH 7.35 mmol/L (7.35-7.45); ABG PO2 91.5 mmhg (80-100)
[2021-08-22 07:55] LABS: Oxygen 100 %; PEEP 14; Tidal Volume 460; Vent Rate 26
[2021-08-22 07:56] LABS: ABG PCO2 60.3 mmhg (35.0-45.0); Allen's Test Patient Unable; Source Left Radial
[2021-08-22 08:17] LABS: Lymphocytes % 5 % (10-50); Monocytes % 4 % (2-9); Neutrophils % 91 % (42-76); Total Cells Counted 100
[2021-08-22 08:18] LABS: Platelet Estimate Normal; RBC Morphology Normal
--- NOTE | 2021-08-22 13:06 | PC.NURSE ---
current BP 132/67 levophed titrated down to 3mcg at this time
--- NOTE | 2021-08-22 14:28 | HMH.ACPN2 ---
Internal Medicine - PN: Subj *Date: 08/22/21 *Time: 14:28 Interval history: The patient had a difficult night. His O2 saturations dropped. He required increase of his FiO2 to 100%. It only has been recently decreased back down to 90. With settings of 100% FiO2, increase in tidal volume of 460, PEEP of 14, respiratory rate of 26, blood gases showed 7.35 pH 60.3% PCO2, 91.5% PO2. He has been off and on fentanyl. Currently he is receiving 1 mg. His blood pressures have been good through this morning. His weight is basically the same as yesterday and is down from 2 days ago. Exam Vital signs and Labs for Last 24 Hours: Temp Pulse Resp BP Pulse Ox 98.9 F 99 H 28 H 142/69 H 91 L 08/22/21 04:00 08/22/21 14:00 08/22/21 14:00 08/22/21 14:00 08/22/21 14:00 Laboratory Results - last 24 hr 08/21/21 15:43: APTT 50.4 H* 08/21/21 22:13: APTT 39.4 H 08/21/21 22:23: Specimen Source Right radial, O2 % 100, ABG pH 7.42, ABG pCO2 47.3 H, ABG pO2 61.3 L, ABG HCO3 29.7 H, ABG Total CO2 31.2 H, ABG O2 Saturation 92, ABG Base Excess 5.2 H, Teto Test Acceptable, PEEP 15 08/22/21 05:30: Sodium 131 L, Potassium 5.2 H, Chloride 91 L, Carbon Dioxide 38 H, Anion Gap 7.2, BUN 25 H, Creatinine 0.80 D, Estimated Creat Clear 153, Estimated GFR 99, Est GFR ( Amer) 120 D, Glucose 115 H, Calcium 7.9 L 08/22/21 05:30: APTT 76.0 H* 08/22/21 05:30: WBC 25.7 H*, RBC 3.46 L, Hgb 10.7 L, Hct 34.1 L, MCV 98.6 H, MCH 30.9, MCHC 31.4 L, RDW 14.6, Plt Count 396, MPV 9.4, Neut % (Auto) 92.6 H, Lymph % (Auto) 2.4 L, [place] % (Auto) 4.3, Eos % (Auto) 0.3, Baso % (Auto) 0.4, Neut # (Auto) 23.8 H, Lymph # (Auto) 0.6 L, [place] # (Auto) 1.1 H, Eos # (Auto) 0.1, Baso # (Auto) 0.1, Total Counted 100, Neutrophils % (Manual) 91 H, Lymphocytes % (Manual) 5 L, Monocytes % (Manual) 4, Platelet Estimate Normal, RBC Morphology Normal 08/22/21 06:00: Specimen Source Left radial, O2 % 100, ABG pH 7.35, ABG pCO2 60.3 H, ABG pO2 91.5, ABG HCO3 32.2 H, ABG Total CO2 34.0 H, ABG O2 Saturation 97, ABG Base Excess 6.5 H, Teto Test Patient unable, Vent Rate 26, Tidal Volume 460, PEEP 14 I & O for Last 24 hours: Intake & Output 08/20/21 08/21/21 08/22/21 08/23/21 11:59 11:59 11:59 11:59 Intake Total 3702 / 3702 2651 / 2651 2912 / 2912 143 / 143 Output Total 2100 / 2100 5380 / 5380 2675 / 2735 150 / 150 Balance 1602 / 1602 -2729 / -2729 237 / 177 -7 / -7 Weight 255 lb 1.197 oz 238 lb 237 lb 9.6 oz - Constitutional no acute distress (On ventilator) - *Routine HEENT Exam Head: Present: normocephalic Eye: Present: PERRL ENT: Present: mucous membranes moist - *Routine Neck Exam Present: supple. Absent: lymphadenopathy - *Routine Respiratory Exam Present: CTA bilaterally (He still moves air well. He is not wheezing.) - *Routine Cardiovascular Exam Present: RRR - *Routine Abdominal Exam Present: soft, normoactive bowel sounds. Absent: tenderness - *Routine Exam Comments: Hinton catheter - *Routine Extremities Exam Present: edema (He still has edema at greater than 2+). Absent: cyanosis, clubbing - *Routine Skin Exam Present: intact, warm. Absent: rash - *Routine Neurological Exam Absent: alert (Sedated) Assessment and Plan (1) Acute respiratory failure due to COVID-19 Status: Acute Category: Medical Code(s): U07.1 - COVID-19; J96.00 - Acute respiratory failure, unspecified whether with hypoxia or hypercapnia (2) COVID-19 Status: Acute Category: Medical Code(s): U07.1 - COVID-19 - Assessment and plan all Dx Assessment and Plan for all problems:: I am ordering daily Lasix 40 mg IV.
--- NOTE | 2021-08-22 16:59 | PC.WOUNDNOTE ---
coccyx skin assessment Stage II
[2021-08-22 17:10] LABS: PTT Heparin (inpatient only) 73.5 Seconds (23.6-34.0)
[2021-08-23] VITALS (32 sets, daily range): BP systolic 84–130; BP diastolic 43–66; PULSE 89–120; RESP 24–32; TEMP 36.6–39.1; O2SAT 89–99; BMI 34.0
--- NOTE | 2021-08-23 00:05 | PC.NURSE ---
rectal temp 102.3, active cooling started. ice packs applied and tylenol given per mar
--- NOTE | 2021-08-23 04:46 | PC.NURSE ---
Pt currently on versed @ 0.06, fent @ 100. Sats >90 throughout shift. oral care q2h prn, turned q2h. heels floated, drsg on coccyx.
--- NOTE | 2021-08-23 06:00 | XR_ITS ---
PROCEDURE INFORMATION: Exam: XR Chest Exam date and time: 08/23/2021 6:00 AM Age: 56 years old Clinical indication: Device placement; Ett placement (vent status); Additional info: Intubated PT check vent status TECHNIQUE: Imaging protocol: XR of the chest. Views: 1 view. COMPARISON: CR XR CHEST PORTABLE 08/22/2021 5:51 AM FINDINGS: Tubes, catheters and devices: The ET tube is 6 cm from the pamela. The nasogastric tube and central venous catheter position. Lungs: Increasing left lung base infiltrate is noted. Stable right-sided patchy infiltrates. Pleural spaces: Unremarkable. No pleural effusion. No pneumothorax. Heart/Mediastinum: Unremarkable. No cardiomegaly. Bones/joints: Unremarkable. IMPRESSION: Increasing infiltrate left lung base.
[2021-08-23 07:29] LABS: Basophils # 0.1 K/mm3 (0-0.2); Basophils % 0.4 % (0.1-2.0); Eosinophils # 0.1 K/mm3 (0.0-0.4); Eosinophils % 0.6 % (0.1-12.0); Hematocrit 31.6 % (42.0-52.0); Hemoglobin 10.2 g/dL (14.1-18.0); Lymphocytes # 0.9 K/mm3 (0.7-4.5); MANUAL DIFFERENTIAL MANUAL DIFFERENTIAL (MANUAL DIFF); Mean Corpuscular HGB Conc 32.2 g/dL (31.8-35.4); Mean Corpuscular Hemoglobin 31.9 pg (27.0-31.2); Mean Corpuscular Volume 98.8 fl (80-94); Mean Platelet Volume 8.4 fl (7.4-10.4); Monocytes # 0.6 K/mm3 (0.1-1.0); Monocytes % 4.2 % (1.7-9.3); Neutrophils # 12.8 K/mm3 (1.8-7.8); Neutrophils % 88.8 % (37.0-80.0); Platelet Count 311 K/mm3 (142-424); Red Blood Count 3.19 M/mm3 (4.60-6.20); Red Cell Distribution Width 14.6 % (11.5-17.5); White Blood Count 14.5 K/mm3 (4.8-10.8)
[2021-08-23 07:32] LABS: PTT Heparin (inpatient only) 68.6 Seconds (23.6-34.0)
[2021-08-23 07:43] LABS: ABG Base Excess 6.4 mmol/L (-2.4-2.3); ABG HCO3 32.3 mmhg (22.0-26.0); ABG Oxygen Saturation 94 % (90-100); ABG PH 7.33 mmol/L (7.35-7.45); ABG PO2 68.8 mmhg (80-100); ABG TCO2 34.2 mmhg (23-27)
[2021-08-23 07:46] LABS: Allen's Test Patient Unable; Oxygen 90% %; PEEP 14; Source Left Radial; Tidal Volume 460; Vent Rate 26
[2021-08-23 07:48] LABS: ABG PCO2 62.5 mmhg (35.0-45.0)
[2021-08-23 07:50] LABS: Chloride 87 mmol/L (98-107); Potassium 5.2 mmoL/L (3.5-5.1); Sodium 129 mmol/L (136-145)
[2021-08-23 07:53] LABS: Blood Urea Nitrogen 29 mg/dl (9-20); Creatinine Clearance Estimated 136 mL/min (50-200); Estimated Glomerular Filt Rate 87 ml/min (>60); GFR (African American) 105 ML/MIN (>60)
[2021-08-23 07:54] LABS: Calcium 7.9 mg/dl (8.4-10.2); Glucose 110 mg/dl (74-100)
[2021-08-23 08:00] LABS: Anion Gap 8.2 mEq/L (5-15); Carbon Dioxide 39 mmol/L (22.0-30.0)
[2021-08-23 09:19] LABS: Eosinophils % 1 % (0-3); Lymphocytes % 6 % (10-50); Monocytes % 4 % (2-9); Neutrophils % 89 % (42-76); Platelet Estimate Normal; RBC Morphology Normal; Total Cells Counted 100
--- NOTE | 2021-08-23 09:57 | HMH.ACPN2 ---
Internal Medicine - PN: Subj *Date: 08/23/21 *Time: 09:57 Interval history: No new respiratory problems overnight however have been unable to wean his vent settings. Currently he is on a tidal volume of 460, PEEP of 14, rate of 26, and FiO2 of 90%. ABG this morning is satisfactory. He has been hemodynamically stable off of the Levophed drip since yesterday. He spiked a fever yesterday afternoon and during the night. Repeat blood cultures are pending. Chest x-ray shows increasing left lower lobe infiltrate. He is tolerating his tube feedings but has not had a bowel movement. Exam Vital signs and Labs for Last 24 Hours: Temp Pulse Resp BP Pulse Ox 99.3 F 90 28 H 120/62 96 08/23/21 08:00 08/23/21 08:00 08/23/21 06:51 08/23/21 06:51 08/23/21 06:51 Laboratory Results - last 24 hr 08/22/21 13:40: APTT 73.5 H* 08/23/21 06:11: APTT 68.6 H* 08/23/21 06:11: WBC 14.5 H D, RBC 3.19 L, Hgb 10.2 L, Hct 31.6 L, MCV 98.8 H, MCH 31.9 H, MCHC 32.2, RDW 14.6, Plt Count 311, MPV 8.4, Neut % (Auto) 88.8 H, Lymph % (Auto) 6.0 L, [place] % (Auto) 4.2, Eos % (Auto) 0.6, Baso % (Auto) 0.4, Neut # (Auto) 12.8 H, Lymph # (Auto) 0.9, [place] # (Auto) 0.6, Eos # (Auto) 0.1, Baso # (Auto) 0.1, Total Counted 100, Neutrophils % (Manual) 89 H, Lymphocytes % (Manual) 6 L, Monocytes % (Manual) 4, Eosinophils % (Manual) 1, Platelet Estimate Normal, RBC Morphology Normal 08/23/21 06:11: Sodium 129 L, Potassium 5.2 H, Chloride 87 L, Carbon Dioxide 39 H, Anion Gap 8.2, BUN 29 H, Creatinine 0.90, Estimated Creat Clear 136, Estimated GFR 87, Est GFR ( Amer) 105, Glucose 110 H, Calcium 7.9 L 08/23/21 07:33: Specimen Source Left radial, O2 % 90%, ABG pH 7.33 L, ABG pCO2 62.5 H, ABG pO2 68.8 L, ABG HCO3 32.3 H, ABG Total CO2 34.2 H, ABG O2 Saturation 94, ABG Base Excess 6.4 H, Teto Test Patient unable, ABG Lactate 1.0, Vent Rate 26, Tidal Volume 460, PEEP 14 I & O for Last 24 hours: Intake & Output 08/20/21 08/21/21 08/22/21 08/23/21 11:59 11:59 11:59 11:59 Intake Total 3702 / 3702 2651 / 2651 2912 / 2912 2506 / 2506 Output Total 2100 / 2100 5380 / 5380 2675 / 2735 2840 / 2840 Balance 1602 / 1602 -2729 / -2729 237 / 177 -334 / -334 Weight 255 lb 1.197 oz 238 lb 237 lb 9.6 oz 237 lb 9.616 oz Narrative: He is sedated on the ventilator. Color is good. Chest reveals bibasilar rales. No wheezes. Heart is regular. Abdomen is soft and nondistended. Bowel sounds are present. Extremities show 1+ edema. Assessment and Plan (1) Acute respiratory failure due to COVID-19 Status: Acute Category: Medical Code(s): U07.1 - COVID-19; J96.00 - Acute respiratory failure, unspecified whether with hypoxia or hypercapnia (2) COVID-19 Status: Acute Category: Medical Code(s): U07.1 - COVID-19 - Assessment and plan all Dx Assessment and Plan for all problems:: Continue per orders. Blood cultures are pending. Repeat UA and culture in light of his fever. Of note, his white blood cell count has improved.
[2021-08-23 13:46] LABS: Microscopic, Urine URINE MICROSCOPIC (MICROSCOPIC)
[2021-08-23 14:00] LABS: Appearance,Urine CLOUDY (Clear); Bilirubin,Urine Negative (Negative); Blood, Urine 3+ (Negative); Color,Urine YELLOW (Yellow); Glucose,Urine (UA) Negative (Negative); Ketones,Urine Negative (Negative); Leukocyte Esterase,Urine Negative (Negative); Nitrate,Urine Negative (Negative); Protein,Urine TRACE (Negative); Specific Gravity, Urine >= 1.030 (1.005-1.030); Urobilinogen,Urine 0.2 EU/dl (0.2)
[2021-08-23 14:53] LABS: Bacteria,Urine Trace /lpf; WBC,Urine Occasional #/hpf (0-3)
--- NOTE | 2021-08-23 15:30 | PC.NURSE ---
RT weaned FIO2 to 85% @ this time.
--- NOTE | 2021-08-23 20:47 | PC.NURSE ---
SBP sustaining less than 90, MAP <65, Levophed started at 2mcg.
[2021-08-24] VITALS (32 sets, daily range): BP systolic 75–140; BP diastolic 39–65; PULSE 77–115; RESP 26–35; TEMP 36.5–37.5; O2SAT 85–99; BMI 33.7
--- NOTE | 2021-08-24 00:58 | PC.NURSE ---
0000- BP 93/42, levo increased to 4mcg 0030- BP 75/39, levo increased to 8mcg
--- NOTE | 2021-08-24 06:00 | XR_ITS ---
PROCEDURE INFORMATION: Exam: XR Chest Exam date and time: 08/24/2021 6:00 AM Age: 56 years old Clinical indication: Device placement; Ett placement (vent status); Additional info: Intubated vent status TECHNIQUE: Imaging protocol: XR of the chest. Views: 1 view. COMPARISON: CR XR CHEST PORTABLE 08/23/2021 5:52 AM FINDINGS: Tubes, catheters and devices: Endotracheal tube terminates approximately 5.4 cm above the pamela. NG tube passes into the stomach. Left subclavian central venous catheter terminates in the region of the brachiocephalic vein. Lungs: Slightly improved patchy bilateral airspace opacities. Pleural spaces: No substantial pleural effusion. No pneumothorax. Heart/Mediastinum: Unremarkable. No cardiomegaly. Bones/joints: Unremarkable. IMPRESSION: 1. Endotracheal tube terminates approximately 5.4 cm above the pamela. 2. Slightly improved patchy bilateral airspace opacities.
[2021-08-24 06:59] LABS: Basophils # 0.1 K/mm3 (0-0.2); Basophils % 0.4 % (0.1-2.0); Eosinophils # 0.2 K/mm3 (0.0-0.4); Eosinophils % 1.1 % (0.1-12.0); Hematocrit 30.2 % (42.0-52.0); Hemoglobin 9.9 g/dL (14.1-18.0); Lymphocytes # 0.9 K/mm3 (0.7-4.5); Lymphocytes % 5.8 % (10-50); Mean Corpuscular HGB Conc 32.8 g/dL (31.8-35.4); Mean Corpuscular Hemoglobin 31.7 pg (27.0-31.2); Mean Corpuscular Volume 96.7 fl (80-94); Mean Platelet Volume 8.5 fl (7.4-10.4); Monocytes # 0.6 K/mm3 (0.1-1.0); Monocytes % 3.6 % (1.7-9.3); Neutrophils # 14.1 K/mm3 (1.8-7.8); Neutrophils % 89.2 % (37.0-80.0); Platelet Count 298 K/mm3 (142-424); Red Blood Count 3.12 M/mm3 (4.60-6.20); Red Cell Distribution Width 14.7 % (11.5-17.5); White Blood Count 15.9 K/mm3 (4.8-10.8)
[2021-08-24 07:05] LABS: MANUAL DIFFERENTIAL MANUAL DIFFERENTIAL (MANUAL DIFF)
[2021-08-24 07:40] LABS: ABG Base Excess 7.4 mmol/L (-2.4-2.3); ABG HCO3 31.9 mmhg (22.0-26.0); ABG Oxygen Saturation 94 % (90-100); ABG PH 7.42 mmol/L (7.35-7.45); ABG PO2 67.8 mmhg (80-100); ABG TCO2 33.5 mmhg (23-27)
[2021-08-24 07:42] LABS: Oxygen 85 %; Tidal Volume 460; Vent Rate 26
[2021-08-24 07:43] LABS: ABG PCO2 50.6 mmhg (35.0-45.0); Allen's Test acceptable; Lactate Arterial 0.9 mmol/L (0.4-2.0); PEEP 14; Source Right Radial
--- NOTE | 2021-08-24 07:48 | PC.NURSE ---
received call from lab ([facility]) reporting PTT 69. Notified pharmacy ([facility]), who ordered no change in Heparin gtt and to recheck PTT tomorrow morning. He verbalized that he will enter next PTT order in computer.
[2021-08-24 08:08] LABS: Lymphocytes % 6 % (10-50); Monocytes % 2 % (2-9); Neutrophils % 92 % (42-76); RBC Morphology Normal; Total Cells Counted 100
[2021-08-24 08:09] LABS: Platelet Estimate Normal
--- NOTE | 2021-08-24 08:49 | HMH.ACPN2 ---
Internal Medicine - PN: Subj *Date: 08/24/21 *Time: 13:39 Interval history: Patient remains sedated and on the vent. He is off Levophed at present. Continues with tube feedings and is tolerating well. He has not had a recent bowel movement. He has a Hinton catheter to bedside drainage.: Vent settings: Tidal volume is 460 FiO2 35% assist-control of 26 with 14 of PEEP.ABGs on this setting reveal pH of 7.42 PCO2 of 50.6 PO2 of 67.8 and a bicarb of 31.9. Laboratory data showed a decrease in white blood cell count of 15,900 with a hemoglobin of 9.9 hematocrit 30.2. Blood chemistries show sodium of 129 potassium 5.2 BUN is 29 with a creatinine of 0.9.Chest x-ray shows slightly improved patchy bilateral airspace opacities. Exam Vital signs and Labs for Last 24 Hours: Temp Pulse Resp BP Pulse Ox 98.8 F 95 H 30 H 117/53 L 96 08/24/21 06:00 08/24/21 06:45 08/24/21 06:45 08/24/21 06:45 08/24/21 06:45 Laboratory Results - last 24 hr 08/23/21 06:11: Total Counted 100, Neutrophils % (Manual) 89 H, Lymphocytes % (Manual) 6 L, Monocytes % (Manual) 4, Eosinophils % (Manual) 1, Platelet Estimate Normal, RBC Morphology Normal 08/23/21 12:52: Urine Color Yellow, Urine Appearance Cloudy, Urine pH 6.0, Ur Specific [place] >= 1.030, Urine Protein Trace, Urine Glucose (UA) Negative, Urine Ketones Negative, Urine Blood 3+, Urine Nitrate Negative, Urine Bilirubin Negative, Urine Urobilinogen 0.2, Ur Leukocyte Esterase Negative, Urine RBC 5-10, Urine WBC Occasional, Ur Squamous Epith Cells None, Urine Bacteria Trace 08/24/21 06:30: APTT 69.0 H* 08/24/21 06:30: WBC 15.9 H, RBC 3.12 L, Hgb 9.9 L, Hct 30.2 L, MCV 96.7 H, MCH 31.7 H, MCHC 32.8, RDW 14.7, Plt Count 298, MPV 8.5, Neut % (Auto) 89.2 H, Lymph % (Auto) 5.8 L, [place] % (Auto) 3.6, Eos % (Auto) 1.1, Baso % (Auto) 0.4, Neut # (Auto) 14.1 H, Lymph # (Auto) 0.9, [place] # (Auto) 0.6, Eos # (Auto) 0.2, Baso # (Auto) 0.1, Total Counted 100, Neutrophils % (Manual) 92 H, Lymphocytes % (Manual) 6 L, Monocytes % (Manual) 2, Platelet Estimate Normal, RBC Morphology Normal 08/24/21 07:18: Specimen Source Right radial, O2 % 85, ABG pH 7.42, ABG pCO2 50.6 H, ABG pO2 67.8 L, ABG HCO3 31.9 H, ABG Total CO2 33.5 H, ABG O2 Saturation 94, ABG Base Excess 7.4 H, Teto Test acceptable, ABG Lactate 0.9, Vent Rate 26, Tidal Volume 460, PEEP 14 I & O for Last 24 hours: Intake & Output 08/21/21 08/22/21 08/23/21 08/24/21 11:59 11:59 11:59 11:59 Intake Total 2651 / 2651 2912 / 2912 3051 / 3120 2176 / 2176 Output Total 5380 / 5380 2675 / 2735 3430 / 3505 1625 / 1625 Balance -2729 / -2729 237 / 177 -379 / -385 551 / 551 Weight 238 lb 237 lb 9.6 oz 237 lb 9.616 oz 235 lb 8 oz Microbiology Reports for the Last 24 Hours: Microbiology 08/22/21 10:10 Blood Blood Culture - Preliminary - Constitutional no acute distress Comments: Sedated - *Routine Respiratory Exam Present: patient mechanically ventilated, CTA bilaterally (Anteriorly) - *Routine Cardiovascular Exam Present: RRR Comments: Monitor showing sinus rhythm in the seventies - *Routine Abdominal Exam Present: soft, normoactive bowel sounds, distended - *Routine Extremities Exam Present: edema (Trace bilaterally) - *Routine Neurological Exam Absent: alert (Sedated) Assessment and Plan (1) Acute respiratory failure due to COVID-19 Status: Acute Category: Medical Code(s): U07.1 - COVID-19; J96.00 - Acute respiratory failure, unspecified whether with hypoxia or hypercapnia (2) COVID-19 Status: Acute Category: Medical Code(s): U07.1 - COVID-19 - Assessment and plan all Dx Assessment and Plan for all problems:: Continue current pulmonary care as per pulmonology. Will decrease metoprolol and discontinue hydrochlorothiazide due to hypotension.. He is on Lasix 40 daily
[2021-08-24 09:24] LABS: Blood Urea Nitrogen 34 mg/dl (9-20); Calcium 7.9 mg/dl (8.4-10.2); Chloride 86 mmol/L (98-107); Creatinine Clearance Estimated 174 mL/min (50-200); Estimated Glomerular Filt Rate 116 ml/min (>60); GFR (African American) 140 ML/MIN (>60); Glucose 99 mg/dl (74-100); Potassium 5.2 mmoL/L (3.5-5.1); Sodium 127 mmol/L (136-145)
[2021-08-24 09:32] LABS: Anion Gap 4.2 mEq/L (5-15); Carbon Dioxide 42 mmol/L (22.0-30.0)
--- NOTE | 2021-08-24 11:48 | HMH.ACPN2 ---
Internal Medicine - PN: Subj *Date: 08/24/21 *Time: 11:48 Interval history: Stable this AM. Vent at 85% FiO2. Sats stable. I think the daily dose Furosemide has helped. Fever reported last night, and gram positives culturered from blood. Exam Vital signs and Labs for Last 24 Hours: Temp Pulse Resp BP Pulse Ox 98.7 F 94 H 32 H 122/63 92 L 08/24/21 08:00 08/24/21 11:00 08/24/21 11:00 08/24/21 11:00 08/24/21 11:00 Laboratory Results - last 24 hr 08/23/21 12:52: Urine Color Yellow, Urine Appearance Cloudy, Urine pH 6.0, Ur Specific [place] >= 1.030, Urine Protein Trace, Urine Glucose (UA) Negative, Urine Ketones Negative, Urine Blood 3+, Urine Nitrate Negative, Urine Bilirubin Negative, Urine Urobilinogen 0.2, Ur Leukocyte Esterase Negative, Urine RBC 5-10, Urine WBC Occasional, Ur Squamous Epith Cells None, Urine Bacteria Trace 08/24/21 05:30: Sodium 127 L, Potassium 5.2 H, Chloride 86 L, Carbon Dioxide 42 H*, Anion Gap 4.2 L, BUN 34 H, Creatinine 0.70 D, Estimated Creat Clear 174, Estimated GFR 116, Est GFR ( Amer) 140 D, Glucose 99, Calcium 7.9 L 08/24/21 06:30: APTT 69.0 H* 08/24/21 06:30: WBC 15.9 H, RBC 3.12 L, Hgb 9.9 L, Hct 30.2 L, MCV 96.7 H, MCH 31.7 H, MCHC 32.8, RDW 14.7, Plt Count 298, MPV 8.5, Neut % (Auto) 89.2 H, Lymph % (Auto) 5.8 L, [place] % (Auto) 3.6, Eos % (Auto) 1.1, Baso % (Auto) 0.4, Neut # (Auto) 14.1 H, Lymph # (Auto) 0.9, [place] # (Auto) 0.6, Eos # (Auto) 0.2, Baso # (Auto) 0.1, Total Counted 100, Neutrophils % (Manual) 92 H, Lymphocytes % (Manual) 6 L, Monocytes % (Manual) 2, Platelet Estimate Normal, RBC Morphology Normal 08/24/21 07:18: Specimen Source Right radial, O2 % 85, ABG pH 7.42, ABG pCO2 50.6 H, ABG pO2 67.8 L, ABG HCO3 31.9 H, ABG Total CO2 33.5 H, ABG O2 Saturation 94, ABG Base Excess 7.4 H, Teto Test acceptable, ABG Lactate 0.9, Vent Rate 26, Tidal Volume 460, PEEP 14 I & O for Last 24 hours: Intake & Output 08/21/21 08/22/21 08/23/21 08/24/21 11:59 11:59 11:59 11:59 Intake Total 2651 / 2651 2912 / 2912 3051 / 3120 2176 / 2176 Output Total 5380 / 5380 2675 / 2735 3430 / 3505 1964 / 1964 Balance -2729 / -2729 237 / 177 -379 / -385 211 / 211 Weight 238 lb 237 lb 9.6 oz 237 lb 9.616 oz 235 lb 8 oz Microbiology Reports for the Last 24 Hours: Microbiology 08/22/21 10:00 Blood Blood Culture - Preliminary NO GROWTH AFTER 48 HOURS 08/22/21 10:10 Blood Blood Culture - Preliminary - Constitutional no acute distress (on ventilator) - *Routine HEENT Exam Head: Present: normocephalic Eye: Present: EOMI, PERRL ENT: Present: mucous membranes moist - *Routine Neck Exam Present: supple. Absent: lymphadenopathy - *Routine Respiratory Exam Present: CTA bilaterally. Absent: respiratory distress, wheezes - *Routine Cardiovascular Exam Present: RRR - *Routine Abdominal Exam Present: soft, normoactive bowel sounds. Absent: tenderness - *Routine Extremities Exam Present: edema - *Routine Skin Exam Present: warm. Absent: rash - *Routine Neurological Exam Absent: alert (sedated) Assessment and Plan (1) Acute respiratory failure due to COVID-19 Status: Acute Category: Medical Code(s): U07.1 - COVID-19; J96.00 - Acute respiratory failure, unspecified whether with hypoxia or hypercapnia (2) COVID-19 Status: Acute Category: Medical Code(s): U07.1 - COVID-19 (3) Acute respiratory failure with hypoxia Status: Acute Category: Medical Code(s): J96.01 - Acute respiratory failure with hypoxia (4) Cerebral palsy Status: Acute Category: Medical Code(s): G80.9 - Cerebral palsy, unspecified (5) Constipation Status: Acute Category: Medical Code(s): K59.00 - Constipation, unspecified (6) Hyperlipidemia Status: Acute Category: Medical Code(s): E78.5 - Hyperlipidemia, unspecified (7) Hypertension Status: Acute Category: Medical Code(s): I10 - Essential (primary) hypertension -
--- NOTE | 2021-08-24 14:24 | HMH.PULMPN ---
Internal Medicine - PN: Subj *Date: 08/24/21 *Time: 14:24 Interval history: No acute respiratory events overnight. Exam - Constitutional Constitutional:: Present: no acute distress, comfortable - HENMT Exam HENMT: Present: normocephalic - Eye Exam Eyes:: Present: normal appearance both eyes and related structures - Neck Exam Neck:: Present: normal visual inspection - Respiratory Exam Respiratory:: Present: respiratory distress, rales - Cardiovascular Exam Cardiac:: Present: S1, S2 - GI Exam GI:: Present: soft, distended - Skin Exam Skin: Present: warm - Neurological Exam Neurological: Absent: alert, awake, normal cognition - Extremities Exam Extremities: Present: no cyanosis, no clubbing, edema Assessment and Plan (1) Acute respiratory failure due to COVID-19 Status: Acute Category: Medical Code(s): U07.1 - COVID-19; J96.00 - Acute respiratory failure, unspecified whether with hypoxia or hypercapnia (2) COVID-19 Status: Acute Category: Medical Code(s): U07.1 - COVID-19 - Assessment and plan all Dx Assessment and Plan for all problems:: #Acute hypoxic respiratory failure: #COVID-19 pneumonia: 55-year-old completed vaccination for COVID-19 pneumonia no prior respiratory complaints not on any inhalers at baseline presented with respiratory distress. D-dimer elevated at 1.05 and CRP at 79. LDH at 1096 CTA showed bilateral diffuse groundglass opacities Patient respiratory is continued decline eventually needing intubation and mechanical ventilatory support on 08/12/2021. Plan: Intubated and sedated with Versed and fentanyl. Patient respiratory status remained stable in the last 12 hrs. He is oxygen requirements worsen over the weekend where it was escalated 100% has been gradually weaning since then. Patient was changed to volume control, he is currently on PEEP of 14 for 60 of tidal volume and rate of 26 and FiO2 of 85%. He has also been receiving diuresis daily. Lower extremity Doppler positive for proximal DVT. CTA negative for pulmonary embolism. CTA showed bilateral diffuse groundglass opacities similar to prior along with new bilateral lower lobe consolidative changes and traction bronchiectasis. Most recent echo from 08/19 did not show evidence of RV strain. LV diastolic dysfunction, with normal RV size and contractility. Receiving Bactrim for stenotrophomonas along with cefepime. His most recent CRP was 156.2. Blood cultures positive for MRSA from blood. Cultures obtained from central line negative Nasal MRSA PCR negative. Completed 10-day course of remdesivir and dexamethasone Leukocytosis relatively stable at 14-16 for the last 48 hours. Continue to have intermittent febrile episodes. Blood cultures growing MRSA from peripheral blood sample. Sample from the central line no cultures 48 hours. We will repeat 2 sets of blood cultures from peripheral access and will initiate vancomycin awaiting blood cultures. Abdomen soft, distended. No bowel movements. We will proceed with lactulose . Renal function stable. Adequate urine output. Continue daily diuresis Lasix 40mg daily. Agree with discontinuing hydrochlorothiazide. - Continue mechanical ventilatory support - Continue AnalgoSedation with Versed and Fentanyl with CPOT gal less than or euqal to 2 and RASS goal of 1 to 2 - VAP bundle Elevate head of the bed at 30 to 45 degrees Oral care with chlorhexidne GI ulcer prophylaxis - Famotidine 20mg IV BID Chemical DVT prophylaxis Thank you for involving pulmonary in this patient care. We will continue to follow.
--- NOTE | 2021-08-24 15:52 | PC.NURSE ---
Resp Care Note: Pt FIO2 increased to 90% and PEEP increased to [id number] per Dr Blanca t/jay.
[2021-08-25] VITALS (28 sets, daily range): BP systolic 82–130; BP diastolic 45–65; PULSE 82–115; RESP 18–31; TEMP 37.2; O2SAT 86–97; BMI 33.7
--- NOTE | 2021-08-25 06:00 | XR_ITS ---
PROCEDURE INFORMATION: Exam: XR Chest Exam date and time: 08/25/2021 6:00 AM Age: 56 years old Clinical indication: Device placement; Ett placement (vent status) TECHNIQUE: Imaging protocol: XR of the chest. Views: 1 view. COMPARISON: CR XR CHEST PORTABLE 08/24/2021 5:54 AM FINDINGS: Tubes, catheters and devices: Endotracheal tube terminates approximately 4.5 cm above the pamela. NG tube passes into the stomach. Left subclavian central venous catheter terminates in the region of the brachiocephalic vein. Lungs: Similar patchy bilateral airspace opacities. Pleural spaces: Probable small left pleural effusion. No pneumothorax. Heart/Mediastinum: Unremarkable. No cardiomegaly. Bones/joints: Unremarkable. IMPRESSION: 1. Endotracheal tube terminates approximately 4.5 cm above the pamela. 2. Similar patchy bilateral airspace opacities, which may reflect multilobar pneumonia, pulmonary edema and/or ARDS.
[2021-08-25 07:46] LABS: ABG Base Excess 7.9 mmol/L (-2.4-2.3); ABG HCO3 35.5 mmhg (22.0-26.0); ABG Oxygen Saturation 89 % (90-100); ABG PH 7.23 mmol/L (7.35-7.45); ABG PO2 61.5 mmhg (80-100); ABG TCO2 38.1 mmhg (23-27)
[2021-08-25 07:47] LABS: Oxygen 90 %; PEEP 15; Tidal Volume 460; Vent Rate 26
[2021-08-25 07:48] LABS: Allen's Test Acceptable; Source Right Radial
[2021-08-25 07:49] LABS: ABG PCO2 87.2 mmhg (35.0-45.0)
[2021-08-25 07:58] LABS: Lactate Arterial 1.2 mmol/L (0.4-2.0)
--- NOTE | 2021-08-25 08:47 | HMH.ACPN2 ---
Internal Medicine - PN: Subj *Date: 08/25/21 *Time: 08:59 Interval history: Patient has stable night. He has developed hematuria. PTT is pending this a.m. He has not had a bowel movement. He is tolerating tube feedings otherwise. He remains sedated on Versed and propofol. He remains on the vent with a tidal volume of 460, FiO2 of 90%, assist-control 26 and 15 of PEEP.ABGs on the settings show pH of 7.23 PCO2 of 87.2 PO2 61.5 and bicarb of 35.5. Other labs are pending this morning Chest x-ray results today as follows: IMPRESSION: 1. Endotracheal tube terminates approximately 4.5 cm above the pamela. 2. Similar patchy bilateral airspace opacities, which may reflect multilobar pneumonia, pulmonary edema and/or ARDS. Weight stable at 235 pounds and 8 ounces Exam Vital signs and Labs for Last 24 Hours: Temp Pulse Resp BP Pulse Ox 98.9 F 107 H 28 H 111/64 90 L 08/25/21 04:00 08/25/21 08:00 08/25/21 08:00 08/25/21 08:00 08/25/21 08:00 Laboratory Results - last 24 hr 08/24/21 05:30: Sodium 127 L, Potassium 5.2 H, Chloride 86 L, Carbon Dioxide 42 H*, Anion Gap 4.2 L, BUN 34 H, Creatinine 0.70 D, Estimated Creat Clear 174, Estimated GFR 116, Est GFR ( Amer) 140 D, Glucose 99, Calcium 7.9 L 08/25/21 06:00: ABG Lactate 1.2 08/25/21 06:00: Specimen Source Right radial, O2 % 90, ABG pH 7.23 L*, ABG pCO2 87.2 H, ABG pO2 61.5 L, ABG HCO3 35.5 H, ABG Total CO2 38.1 H, ABG O2 Saturation 89 L, ABG Base Excess 7.9 H, Teto Test Acceptable, Vent Rate 26, Tidal Volume 460, PEEP 15 I & O for Last 24 hours: Intake & Output 08/22/21 08/23/21 08/24/21 08/25/21 11:59 11:59 11:59 11:59 Intake Total 2912 / 2912 3051 / 3120 2296 / 2296 3971 / 3971 Output Total 2675 / 2735 3430 / 3505 2665 / 3265 2115 / 2115 Balance 237 / 177 -379 / -385 -369 / -969 1856 / 1856 Weight 237 lb 9.6 oz 237 lb 9.616 oz 235 lb 8 oz 235 lb 8 oz Microbiology Reports for the Last 24 Hours: Microbiology 08/23/21 12:52 Urine,[place] Urine Culture - Preliminary NO GROWTH AFTER 24 HOURS 08/22/21 10:00 Blood Blood Culture - Preliminary NO GROWTH AFTER 48 HOURS 08/22/21 10:10 Blood Blood Culture - Preliminary - Constitutional no acute distress Comments: Sedated on vent - *Routine Respiratory Exam Present: patient mechanically ventilated, CTA bilaterally - *Routine Cardiovascular Exam Present: RRR (Monitor showing sinus rhythm) - *Routine Abdominal Exam Present: distended. Absent: normoactive bowel sounds (Tympanic bowel sounds) - *Routine Extremities Exam Absent: edema - *Routine Neurological Exam Absent: alert (Sedated) Assessment and Plan (1) Acute respiratory failure due to COVID-19 Status: Acute Category: Medical Code(s): U07.1 - COVID-19; J96.00 - Acute respiratory failure, unspecified whether with hypoxia or hypercapnia (2) COVID-19 Status: Acute Category: Medical Code(s): U07.1 - COVID-19 (3) Acute respiratory failure with hypoxia Status: Acute Category: Medical Code(s): J96.01 - Acute respiratory failure with hypoxia (4) Constipation Status: Acute Category: Medical Code(s): K59.00 - Constipation, unspecified (5) Hyperlipidemia Status: Acute Category: Medical Code(s): E78.5 - Hyperlipidemia, unspecified (6) Hypertension Status: Chronic Category: Medical Code(s): I10 - Essential (primary) hypertension (7) Hypokalemia Status: Acute Category: Medical Code(s): E87.6 - Hypokalemia (8) Viral pneumonia Status: Acute Category: Medical Code(s): J12.9 - Viral pneumonia, unspecified (9) Viral syndrome Status: Acute Category: Medical Code(s): B34.9 - Viral infection, unspecified - Assessment and plan all Dx Assessment and Plan for all problems:: Continue with pulmonary care. Include liver function studies with labs which are pending. Await PTT results with patient
[2021-08-25 09:02] LABS: Basophils # 0.1 K/mm3 (0-0.2); Basophils % 0.4 % (0.1-2.0); Eosinophils # 0.4 K/mm3 (0.0-0.4); Eosinophils % 2.5 % (0.1-12.0); Hematocrit 31.5 % (42.0-52.0); Hemoglobin 9.8 g/dL (14.1-18.0); Lymphocytes % 5.6 % (10-50); Mean Corpuscular HGB Conc 31.1 g/dL (31.8-35.4); Mean Corpuscular Volume 99.7 fl (80-94); Mean Platelet Volume 8.2 fl (7.4-10.4); Monocytes # 0.6 K/mm3 (0.1-1.0); Monocytes % 3.2 % (1.7-9.3); Neutrophils # 15.4 K/mm3 (1.8-7.8); Neutrophils % 88.3 % (37.0-80.0); Platelet Count 327 K/mm3 (142-424); Red Blood Count 3.16 M/mm3 (4.60-6.20); Red Cell Distribution Width 14.9 % (11.5-17.5); White Blood Count 17.4 K/mm3 (4.8-10.8)
--- NOTE | 2021-08-25 09:04 | XR_ITS ---
PROCEDURE: XR KUB CLINICAL INDICATION: Abdominal distention COMPARISON: CR XR KUB from 08/21/2021 FINDINGS: Nasogastric tube tip is in the region the antrum/pyloric region of the stomach. Bowel gas pattern is nonspecific. Moderate amount colonic feces noted. IMPRESSION: NG tube in good position. Moderate amount of retained colonic feces Dictated by: Teto Reeder MD 08/25/2021 09:45 Teto Reeder MD in [facility] 08/25/2021 09:45
[2021-08-25 09:11] LABS: Chloride 86 mmol/L (98-107)
[2021-08-25 09:12] LABS: Potassium 5.2 mmoL/L (3.5-5.1); Sodium 126 mmol/L (136-145)
[2021-08-25 09:14] LABS: Alanine Aminotransferase 63 U/L (12-78); Aspartate Amino Transferase 53 U/L (17-59); Blood Urea Nitrogen 33 mg/dl (9-20); Creatinine Clearance Estimated 152 mL/min (50-200); Estimated Glomerular Filt Rate 99 ml/min (>60); GFR (African American) 120 ML/MIN (>60)
[2021-08-25 09:15] LABS: Albumin Level 2.9 g/dl (3.5-5.0); Albumin/Globulin Ratio 0.8 (1.1-1.8); Alkaline Phosphatase 131 U/L (38-126); Bilirubin,Total 0.3 mg/dl (0.2-1.3); Globulin 3.6 g/dL (1.3-3.2); Glucose 143 mg/dl (74-100); MANUAL DIFFERENTIAL MANUAL DIFFERENTIAL (MANUAL DIFF); Total Protein,Serum 6.5 g/dl (6.3-8.2)
[2021-08-25 09:20] LABS: PTT Heparin (inpatient only) 62.6 Seconds (23.6-34.0)
[2021-08-25 09:21] LABS: Anion Gap 7.2 mEq/L (5-15); Carbon Dioxide 38 mmol/L (22.0-30.0)
[2021-08-25 10:27] LABS: Eosinophils % 2 % (0-3); Lymphocytes % 5 % (10-50); Monocytes % 2 % (2-9); Neutrophils % 91 % (42-76); Total Cells Counted 100
[2021-08-25 10:28] LABS: Platelet Estimate Normal; RBC Morphology Normal
--- NOTE | 2021-08-25 12:14 | HMH.PULMPN ---
Internal Medicine - PN: Subj *Date: 08/25/21 *Time: 12:14 Interval history: No acute respiratory vents overnight. Exam - Constitutional Constitutional:: Present: no acute distress - HENMT Exam HENMT: Present: normocephalic - Eye Exam Eyes:: Present: normal appearance both eyes and related structures - Neck Exam Neck:: Present: normal visual inspection - Respiratory Exam Respiratory:: Present: respiratory distress, decreased breath sounds, rhonchi - Cardiovascular Exam Cardiac:: Present: S1, S2 - GI Exam GI:: Present: soft, distended - Skin Exam Skin: Present: warm - Neurological Exam Neurological: Absent: alert, awake, normal cognition - Extremities Exam Extremities: Present: no cyanosis, no clubbing, edema Assessment and Plan (1) Acute respiratory failure due to COVID-19 Status: Acute Category: Medical Code(s): U07.1 - COVID-19; J96.00 - Acute respiratory failure, unspecified whether with hypoxia or hypercapnia (2) COVID-19 Status: Acute Category: Medical Code(s): U07.1 - COVID-19 (3) Acute respiratory failure with hypoxia Status: Acute Category: Medical Code(s): J96.01 - Acute respiratory failure with hypoxia (4) Constipation Status: Acute Category: Medical Code(s): K59.00 - Constipation, unspecified (5) Hyperlipidemia Status: Acute Category: Medical Code(s): E78.5 - Hyperlipidemia, unspecified (6) Hypertension Status: Chronic Category: Medical Code(s): I10 - Essential (primary) hypertension (7) Hypokalemia Status: Acute Category: Medical Code(s): E87.6 - Hypokalemia (8) Viral pneumonia Status: Acute Category: Medical Code(s): J12.9 - Viral pneumonia, unspecified (9) Viral syndrome Status: Acute Category: Medical Code(s): B34.9 - Viral infection, unspecified - Assessment and plan all Dx Assessment and Plan for all problems:: #Acute hypoxic respiratory failure: #COVID-19 pneumonia: 55-year-old completed vaccination for COVID-19 pneumonia no prior respiratory complaints not on any inhalers at baseline presented with respiratory distress. D-dimer elevated at 1.05 and CRP at 79. LDH at 1096 CTA showed bilateral diffuse groundglass opacities Patient respiratory is continued decline eventually needing intubation and mechanical ventilatory support on 08/12/2021. Lower extremity Doppler positive for proximal DVT. CTA negative for pulmonary embolism. CTA showed bilateral diffuse groundglass opacities similar to prior along with new bilateral lower lobe consolidative changes and traaction bronchectasis Most recent echo from 08/19 did not show evidence of RV strain. LV diastolic dysfunction, with normal RV size and contractility. Plan: Intubated and sedated with Versed and fentanyl. Patient respiratory status continued to worsen with increasing oxygen requirements. His decreased lung complaince from abdominal distention is also contributing to his woesening oxygenation. No bowel movements in the last 10 days. Appreciate primary team's contribution in managing constipation, hematuria, hyperkalemia, hyponatremia and bactremia. Increased FiO2 to 100% and respiratory rate to 28. Recommend to keep the PEEP at 15. Chest x-ray relatively stable, blood gas from this morning showed worsening resp acidosis. Receiving Bactrim for stenotrophomonas along with cefepime. Started on vancomycin 08/24/2021 for staph epi bacteremia awaiting repeat cultures. Nasal MRSA PCR negative. Completed 10-day course of remdesivir and dexamethasone Leukocytosis relatively stable at for the last 48 hours. Continue to have intermittent febrile episodes. Abdomen soft, increasingly tense and distended. No bowel movements. Recommend to continue lactulose and rectal suppository and will consider CTA abdomen pelvis Renal function stable. Adequate urine output. New onset hematuria, likely from being on heparin with conservative management at this point of time. We
--- NOTE | 2021-08-25 13:00 | PC.NURSE ---
RESP CARE NOTE: Pt FIO2 decreased to 90% FIO2 per Dr Blanca t/o.
--- NOTE | 2021-08-25 14:38 | PC.WOUNDNOTE ---
Stage II coccyx
--- NOTE | 2021-08-25 16:01 | DIET.NUTRFU ---
80mg Furosemide this AM. Stop tube feedings and start intermittent wall suction due to abdominal distention. Weight stable 237#, pulmonary edema noted. Dose of lasix was also provided on 08/24. Labs on 08/25 Na 126L, K 5.2L, BUN33H, Cr 0.80, glucose 143H. TF is currently on hold, will re-evaluate flush/labs prior to restarting
[2021-08-25 22:08] LABS: POC Glucose,Bedside 134 (70-110)
[2021-08-26] VITALS (31 sets, daily range): BP systolic 92–138; BP diastolic 42–72; PULSE 77–115; RESP 20–34; TEMP 36.4–36.9; O2SAT 83–100; BMI 33.5
--- NOTE | 2021-08-26 06:00 | XR_ITS ---
PROCEDURE INFORMATION: Exam: XR Chest Exam date and time: 08/26/2021 6:00 AM Age: 56 years old Clinical indication: Device placement; Ett placement (vent status); Additional info: Ett and og placement TECHNIQUE: Imaging protocol: XR of the chest. Views: 1 view. COMPARISON: CR XR CHEST PORTABLE 08/25/2021 5:07 AM FINDINGS: Tubes, catheters and devices: Endotracheal tube remains in place with the tip above the pamela. Nasogastric tube remains in place. Left subclavian line remains in place. Lungs: There continues to be airspace disease in both lungs, unchanged. Pleural spaces: Unremarkable. No pleural effusion. No pneumothorax. Heart/Mediastinum: Unremarkable. No cardiomegaly. Bones/joints: Unremarkable. IMPRESSION: Stable chest.
[2021-08-26 06:27] LABS: Basophils # 0.1 K/mm3 (0-0.2); Basophils % 0.5 % (0.1-2.0); Eosinophils # 0.5 K/mm3 (0.0-0.4); Eosinophils % 2.6 % (0.1-12.0); Hematocrit 30.4 % (42.0-52.0); Hemoglobin 9.7 g/dL (14.1-18.0); Lymphocytes # 1.5 K/mm3 (0.7-4.5); Lymphocytes % 7.1 % (10-50); Mean Corpuscular HGB Conc 31.8 g/dL (31.8-35.4); Mean Corpuscular Hemoglobin 30.9 pg (27.0-31.2); Mean Corpuscular Volume 97.1 fl (80-94); Mean Platelet Volume 8.6 fl (7.4-10.4); Monocytes # 0.7 K/mm3 (0.1-1.0); Monocytes % 3.6 % (1.7-9.3); Neutrophils # 17.6 K/mm3 (1.8-7.8); Neutrophils % 86.2 % (37.0-80.0); Platelet Count 380 K/mm3 (142-424); Red Blood Count 3.14 M/mm3 (4.60-6.20); Red Cell Distribution Width 15.4 % (11.5-17.5); White Blood Count 20.5 K/mm3 (4.8-10.8)
[2021-08-26 06:32] LABS: MANUAL DIFFERENTIAL MANUAL DIFFERENTIAL (MANUAL DIFF)
[2021-08-26 06:39] LABS: Chloride 83 mmol/L (98-107); Potassium 5.9 mmoL/L (3.5-5.1); Sodium 125 mmol/L (136-145)
[2021-08-26 06:42] LABS: Anion Gap 9.9 mEq/L (5-15); Blood Urea Nitrogen 42 mg/dl (9-20); Calcium 7.9 mg/dl (8.4-10.2); Carbon Dioxide 38 mmol/L (22.0-30.0); Creatinine Clearance Estimated 101 mL/min (50-200); Estimated Glomerular Filt Rate 62 ml/min (>60); GFR (African American) 75 ML/MIN (>60); Glucose 91 mg/dl (74-100)
[2021-08-26 07:11] LABS: PTT Heparin (inpatient only) 86.3 Seconds (23.6-34.0)
--- NOTE | 2021-08-26 07:24 | PC.NURSE ---
Spoke with Night watch. Decrease Heparin gtt to 2100 units
[2021-08-26 07:31] LABS: ABG Base Excess 9.8 mmol/L (-2.4-2.3); ABG Oxygen Saturation 94 % (90-100); ABG PO2 74.7 mmhg (80-100); ABG TCO2 41.1 mmhg (23-27)
[2021-08-26 07:51] LABS: ABG PH 7.19 mmol/L (7.35-7.45)
[2021-08-26 07:56] LABS: Lactate Arterial 1.1 mmol/L (0.4-2.0)
--- NOTE | 2021-08-26 08:08 | PC.NURSE ---
Pt was noted around 2200 to be hypotensive and diaphoretic. Pt assessed. FSBS obtained. Temp taken. Levophed gtt started @ 2215. Titraed per protocol. MD notified. Pt was administered 200 ML bolus NS per MD Mena. VS improved t/o shift. Urine output has decreased. Hematuria noted. Abdomen distended. OG to low wall suction. green/Brown drainage noted. Levophed placed on standby at 0700. Levophed 8 mcg/min 2214 Levophed 10 mcg/min 2229 Levophed 14 mcg/min 2244 Levophed 16 mcg/min 2315 Levophed 14 mcg/min 0400 Levophed 12 mcg/min 0430 Levophed 10 mcg/min 0500 Levophed 8 mcg/min 0530 Levophed 6 mcg/min 0600 Levophed 4 mcg/min 0630 Levophed 2 mcg/min 0645 Levophed standby 0700
[2021-08-26 08:15] LABS: Eosinophils % 3 % (0-3); Lymphocytes % 7 % (10-50); Monocytes % 5 % (2-9); Neutrophils % 85 % (42-76); Total Cells Counted 100
[2021-08-26 08:16] LABS: Platelet Estimate Normal; RBC Morphology Normal
--- NOTE | 2021-08-26 08:24 | HMH.ACPN2 ---
Internal Medicine - PN: Subj *Date: 08/26/21 *Time: 08:24 Interval history: Patient is not doing well this AM. Continues to have hematuria. His NG tube is connected to low wall suction. He has not had a bowel movement despite suppositories and enema. Still receiving Kayexalate. He remains sedated on propofol and Versed on the vent. Vent settings tidal volume has been increased to 500 with FiO2 100%, PEEP of 15 and respiratory rate of 28. ABGs on above vent settings: pH 7.19, PCO2 is 101. PO2 of 74.7, and a bicarb of 38. Other laboratory data: CBC with a white blood cell count of 20,500 hemoglobin of 9.7 hematocrit of 30. Blood chemistries sodium is still low at 125 and potassium is increased to 5.9 BUN is 42 and creatinine is 1.2. Chest x-ray this a.m.Her sports is stable chest. Patient remains off of Levophed with stable blood pressure. Is tachycardic this a.m. He remains on sulfamethizole, vancomycin, and cefepime for antibiotics. He has been afebrile. He has had a decrease in his urinary output. Exam Vital signs and Labs for Last 24 Hours: Temp Pulse Resp BP Pulse Ox 97.7 F 106 H 27 H 134/72 95 08/26/21 03:00 08/26/21 07:00 08/26/21 07:00 08/26/21 07:00 08/26/21 07:00 Laboratory Results - last 24 hr 08/25/21 08:17: WBC 17.4 H, RBC 3.16 L, Hgb 9.8 L, Hct 31.5 L, MCV 99.7 H, MCH 31.0, MCHC 31.1 L, RDW 14.9, Plt Count 327, MPV 8.2, Neut % (Auto) 88.3 H, Lymph % (Auto) 5.6 L, [place] % (Auto) 3.2, Eos % (Auto) 2.5, Baso % (Auto) 0.4, Neut # (Auto) 15.4 H, Lymph # (Auto) 1.0, [place] # (Auto) 0.6, Eos # (Auto) 0.4, Baso # (Auto) 0.1, Total Counted 100, Neutrophils % (Manual) 91 H, Lymphocytes % (Manual) 5 L, Monocytes % (Manual) 2, Eosinophils % (Manual) 2, Platelet Estimate Normal, RBC Morphology Normal 08/25/21 08:17: APTT 62.6 H* 08/25/21 08:17: Sodium 126 L, Potassium 5.2 H, Chloride 86 L, Carbon Dioxide 38 H, Anion Gap 7.2, BUN 33 H, Creatinine 0.80, Estimated Creat Clear 152, Estimated GFR 99, Est GFR ( Amer) 120, Glucose 143 H, Calcium 8.0 L, Total Bilirubin 0.3, AST 53, ALT 63, Alkaline Phosphatase 131 H, Total Protein 6.5, Albumin 2.9 L, Globulin 3.6 H, Albumin/Globulin Ratio 0.8 L 08/25/21 21:48: POC Glucose 134 H 08/26/21 05:54: APTT 86.3 H* 08/26/21 05:54: WBC 20.5 H*, RBC 3.14 L, Hgb 9.7 L, Hct 30.4 L, MCV 97.1 H, MCH 30.9, MCHC 31.8, RDW 15.4, Plt Count 380, MPV 8.6, Neut % (Auto) 86.2 H, Lymph % (Auto) 7.1 L, [place] % (Auto) 3.6, Eos % (Auto) 2.6, Baso % (Auto) 0.5, Neut # (Auto) 17.6 H, Lymph # (Auto) 1.5, [place] # (Auto) 0.7, Eos # (Auto) 0.5 H, Baso # (Auto) 0.1, Total Counted 100, Neutrophils % (Manual) 85 H, Lymphocytes % (Manual) 7 L, Monocytes % (Manual) 5, Eosinophils % (Manual) 3, Platelet Estimate Normal, RBC Morphology Normal 08/26/21 05:54: Sodium 125 L, Potassium 5.9 H, Chloride 83 L, Carbon Dioxide 38 H, Anion Gap 9.9, BUN 42 H D, Creatinine 1.20 D, Estimated Creat Clear 101, Estimated GFR 62, Est GFR ( Amer) 75 D, Glucose 91 D, Calcium 7.9 L 08/26/21 06:00: ABG Lactate 1.1 08/26/21 06:00: ABG pH 7.19 L*, ABG pCO2 101.0 H, ABG pO2 74.7 L, ABG HCO3 38.0 H, ABG Total CO2 41.1 H, ABG O2 Saturation 94, ABG Base Excess 9.8 H I & O for Last 24 hours: Intake & Output 08/23/21 08/24/21 08/25/21 08/26/21 11:59 11:59 11:59 11:59 Intake Total 3051 / 3120 2296 / 2296 4441 / 4560 1188 / 1188 Output Total 3430 / 3505 2665 / 3265 2240 / 2360 1645 / 1645 Balance -379 / -385 -369 / -969 2201 / 2200 -457 / -457 Weight 237 lb 9.616 oz 235 lb 8 oz 235 lb 8 oz 234 lb 6.4 oz Microbiology Reports for the Last 24 Hours: Microbiology 08/23/21 12:52 Urine,[place] Urine Culture - Final NO GROWTH AFTER 48 HOURS 08/22/21 10:10 Blood Blood Culture - Final Staphylococcus epidermidis - Constitutional no acute distress, mild distress Comments: Remains sedated on vent - *Routine Respiratory Exam Present: patient mechanically v
[2021-08-26 10:41] LABS: ABG Base Excess 8.4 mmol/L (-2.4-2.3); ABG HCO3 36.1 mmhg (22.0-26.0); ABG Oxygen Saturation 94 % (90-100); ABG PH 7.22 mmol/L (7.35-7.45); ABG PO2 73.4 mmhg (80-100); ABG TCO2 38.8 mmhg (23-27)
[2021-08-26 10:50] LABS: Oxygen 100 %; Tidal Volume 500
[2021-08-26 10:51] LABS: Allen's Test Acceptable; PEEP 15; Vent Rate 28
[2021-08-26 10:52] LABS: ABG PCO2 89.6 mmhg (35.0-45.0)
--- NOTE | 2021-08-26 11:35 | SW/DCPLANNER ---
I have received a consult regarding need notarized note from MD stating that patient is unable to makes decisions and needs emergency decision maker due to POA being ill as well . I spoke with Med/Surg Science Liaison (Gentry Jacobson) regarding situation. Gentry Kimbrough is going to speak with nurses involved with situation then follow up with me.
[2021-08-26 15:18] LABS: ABG Base Excess 8.5 mmol/L (-2.4-2.3); ABG HCO3 35.1 mmhg (22.0-26.0); ABG Oxygen Saturation 97 % (90-100); ABG PH 7.29 mmol/L (7.35-7.45); ABG PO2 94.4 mmhg (80-100); ABG TCO2 37.3 mmhg (23-27)
[2021-08-26 15:21] LABS: Oxygen 100 %; Tidal Volume 500; Vent Rate 30
[2021-08-26 15:22] LABS: Allen's Test Acceptable; PEEP 15
[2021-08-26 15:23] LABS: ABG PCO2 73.9 mmhg (35.0-45.0)
--- NOTE | 2021-08-26 16:26 | HMH.PULMPN ---
Internal Medicine - PN: Subj *Date: 08/26/21 *Time: 16:26 Interval history: Patient oxygenation and hypercarbia continue to worsen. Exam - Constitutional Constitutional:: Absent: no acute distress, comfortable - HENMT Exam HENMT: Present: normocephalic - Eye Exam Eyes:: Present: normal appearance both eyes and related structures - Neck Exam Neck:: Present: normal visual inspection - Respiratory Exam Respiratory:: Present: able to speak in complete sentences, respiratory distress, rales. Absent: wheezing - Cardiovascular Exam Cardiac:: Present: S1, S2 - GI Exam GI:: Present: soft, distended - Skin Exam Skin: Present: warm - Neurological Exam Neurological: Absent: alert, awake, normal cognition - Extremities Exam Extremities: Present: no cyanosis, no clubbing, edema Assessment and Plan (1) Acute respiratory failure due to COVID-19 Status: Acute Category: Medical Code(s): U07.1 - COVID-19; J96.00 - Acute respiratory failure, unspecified whether with hypoxia or hypercapnia (2) COVID-19 Status: Acute Category: Medical Code(s): U07.1 - COVID-19 (3) Acute respiratory failure with hypoxia Status: Acute Category: Medical Code(s): J96.01 - Acute respiratory failure with hypoxia (4) Constipation Status: Acute Category: Medical Code(s): K59.00 - Constipation, unspecified (5) Hyperlipidemia Status: Acute Category: Medical Code(s): E78.5 - Hyperlipidemia, unspecified (6) Hypertension Status: Chronic Category: Medical Code(s): I10 - Essential (primary) hypertension (7) Hypokalemia Status: Acute Category: Medical Code(s): E87.6 - Hypokalemia (8) Viral pneumonia Status: Acute Category: Medical Code(s): J12.9 - Viral pneumonia, unspecified (9) Viral syndrome Status: Acute Category: Medical Code(s): B34.9 - Viral infection, unspecified (10) Constipation Status: Acute Category: Medical Code(s): K59.00 - Constipation, unspecified (11) Hyperkalemia Status: Acute Category: Medical Code(s): E87.5 - Hyperkalemia (12) Hyponatremia Status: Acute Category: Medical Code(s): E87.1 - Hypo-osmolality and hyponatremia - Assessment and plan all Dx Assessment and Plan for all problems:: #Acute hypoxic respiratory failure: #COVID-19 pneumonia: 55-year-old completed vaccination for COVID-19 pneumonia no prior respiratory complaints not on any inhalers at baseline presented with respiratory distress. D-dimer elevated at 1.05 and CRP at 79. LDH at 1096 CTA showed bilateral diffuse groundglass opacities Patient respiratory is continued decline eventually needing intubation and mechanical ventilatory support on 08/12/2021. Lower extremity Doppler positive for proximal DVT. CTA negative for pulmonary embolism. CTA showed bilateral diffuse groundglass opacities similar to prior along with new bilateral lower lobe consolidative changes and traaction bronchectasis Most recent echo from 08/19 did not show evidence of RV strain. LV diastolic dysfunction, with normal RV size and contractility. Plan: Intubated and sedated with Versed and fentanyl. Patient respiratory status continued to worsen with increasing oxygen requirements and worsening hypercarbia. Minute ventilation increased improving hypercarbia still showed metabolic acidosis with permissive hypercarbia. Most recent blood gas showed a pH of 7.29 with a PCO2 of 73.9 and the PO2 of 94.4. Worsening lung compliance with increasing peak pressures. We will closely monitor. Receiving [id number] days for stenotrophomonas along with cefepime. Started on vancomycin 08/24/2021 for staph epi bacteremia awaiting repeat cultures. Nasal MRSA PCR negative. Completed 10-day course of remdesivir and dexamethasone. Will consider bronchoscopy tomorrow for non-resolving Pneumonia. Worsening leukosis. Continues remain on broad-spectrum antibiotics. Abdomen soft, increasingly tense and distended. No savi
[2021-08-26 17:48] LABS: Vancomycin,Trough 33.1 ug/mL (5.0-10.0)
--- NOTE | 2021-08-26 21:14 | PC.NURSE ---
turned pt and took pic of sacrum/coccyx, will upload pics shortly, placed pt on left side afterward
[2021-08-26 22:36] LABS: PTT Heparin (inpatient only) 84.1 Seconds (23.6-34.0)
--- NOTE | 2021-08-26 22:51 | PC.NURSE ---
notified night watch of pt's critical aPTT result of 84.1, per nightwatch need to decrease drip by 100 units/hr ([id number]) and redraw another aPTT at 0500
[2021-08-27] VITALS (30 sets, daily range): BP systolic 107–147; BP diastolic 51–69; PULSE 72–105; RESP 29–38; TEMP 35.7–37.2; O2SAT 89–98; BMI 33.4
[2021-08-27 05:23] LABS: Chloride 81 mmol/L (98-107); Sodium 125 mmol/L (136-145)
[2021-08-27 05:26] LABS: Blood Urea Nitrogen 49 mg/dl (9-20); Creatinine Clearance Estimated 67 mL/min (50-200); Estimated Glomerular Filt Rate 39 ml/min (>60); GFR (African American) 47 ML/MIN (>60)
[2021-08-27 05:27] LABS: Anion Gap 11.6 mEq/L (5-15); Carbon Dioxide 39 mmol/L (22.0-30.0); Glucose 116 mg/dl (74-100)
[2021-08-27 05:30] LABS: Potassium 6.6 mmoL/L (3.5-5.1)
[2021-08-27 05:47] LABS: Activated Partial Thrombo Time 71.7 seconds (22.8-30.6)
--- NOTE | 2021-08-27 05:57 | PC.NURSE ---
0540 notified night watch about pt's critical vanc value of 21.0, instructed to hold vanc dose and night watch will make note and follow up today 0545 notified MD Mena of pt's critical potassium of 6.6, MD instructed to give 30mg Kayexalate at the 0900 dose and MD will follow up when arrives to round this am, will alert day RN to give 30mg instead of 15mg Kayexalate 0550 notified night watch of pt's critical aptt value of 71.7, instructed to keep heparin drip at current rate (1900units/hr) and redraw another aptt at 1200
--- NOTE | 2021-08-27 07:50 | HMH.PHACONS ---
- Pharmacy Consult Date: 08/27/21 Time: 07:50 Referring provider: DR. GAMEZ Reason for Consult:: VANCOMYCIN LEVELS AND DOSE CHANGE Allergies and ADEs:: Allergies Allergy/AdvReac Type Severity Reaction Status Date / Time Evvwyii-Pbd-Tep Reductase Allergy Verified 08/08/21 14:33 Inhibitor Home Medications:: Home Medications Medication Instructions Recorded Confirmed Type Albuterol Sulfate [Albuterol 2 puffs IH Q6HP PRN 30 Days #1 each 08/07/21 08/08/21 Rx Sulfate Hfa] Benzonatate [Benzonatate 100mg 100 mg PO TIDP PRN #30 cap 08/07/21 08/08/21 Rx cap] Ezetimibe [Zetia] 10 mg PO DAILY 08/07/21 08/08/21 History Losartan Potassium [Cozaar 100mg 100 mg PO DAILY 08/07/21 08/08/21 History Tablets] hydroCHLOROthiazide [HCTZ 25mg 25 mg PO DAILY 08/07/21 08/08/21 History tab] Azithromycin 250 mg PO DAILY 08/08/21 08/08/21 History Fish Oil/Dha/Epa [Fish Oil 1,200 1 each PO DAILY 08/08/21 08/08/21 History mg Fish Oil] dexAMETHasone [Decadron] 6 mg PO DAILY 08/08/21 08/08/21 History Height: 1.78 m Weight: 105.861 kg Laboratory Results:: Laboratory Results - last 24 hr 08/26/21 05:54: Total Counted 100, Neutrophils % (Manual) 85 H, Lymphocytes % (Manual) 7 L, Monocytes % (Manual) 5, Eosinophils % (Manual) 3, Platelet Estimate Normal, RBC Morphology Normal 08/26/21 06:00: ABG Lactate 1.1 08/26/21 06:00: ABG pH 7.19 L*, ABG pCO2 101.0 H, ABG pO2 74.7 L, ABG HCO3 38.0 H, ABG Total CO2 41.1 H, ABG O2 Saturation 94, ABG Base Excess 9.8 H 08/26/21 10:34: Specimen Source A-line, O2 % 100, ABG pH 7.22 L*, ABG pCO2 89.6 H, ABG pO2 73.4 L, ABG HCO3 36.1 H, ABG Total CO2 38.8 H, ABG O2 Saturation 94, ABG Base Excess 8.4 H, Teto Test Acceptable, Vent Rate 28, Tidal Volume 500, PEEP 15 08/26/21 13:05: APTT 80.0 H* 08/26/21 14:30: Vancomycin Trough 33.1 H 08/26/21 14:56: Specimen Source A-line, O2 % 100, ABG pH 7.29 L, ABG pCO2 73.9 H, ABG pO2 94.4, ABG HCO3 35.1 H, ABG Total CO2 37.3 H, ABG O2 Saturation 97, ABG Base Excess 8.5 H, Teto Test Acceptable, Vent Rate 30, Tidal Volume 500, PEEP 15 08/26/21 21:00: APTT 84.1 H* 08/27/21 04:00: Sodium 125 L, Potassium 6.6 H*, Chloride 81 L, Carbon Dioxide 39 H, Anion Gap 11.6, BUN 49 H, Creatinine 1.80 H D, Estimated Creat Clear 67, Estimated GFR 39 L, Est GFR ( Amer) 47 L D, Glucose 116 H D, Calcium 8.0 L 08/27/21 04:00: Vancomycin Trough 21.0 H 08/27/21 05:00: APTT 71.7 H* Medical History: Reports:: Hyperlipidemia, Hypertension Denies:: Cancer, Diabetes Mellitus Type 1, Diabetes Mellitus Type 2, MRSA Assessment and Plan (1) Acute respiratory failure due to COVID-19 Status: Acute Category: Medical Code(s): U07.1 - COVID-19; J96.00 - Acute respiratory failure, unspecified whether with hypoxia or hypercapnia (2) COVID-19 Status: Acute Category: Medical Code(s): U07.1 - COVID-19 (3) Acute respiratory failure with hypoxia Status: Acute Category: Medical Code(s): J96.01 - Acute respiratory failure with hypoxia (4) Constipation Status: Acute Category: Medical Code(s): K59.00 - Constipation, unspecified (5) Hyperlipidemia Status: Acute Category: Medical Code(s): E78.5 - Hyperlipidemia, unspecified (6) Hypertension Status: Chronic Category: Medical Code(s): I10 - Essential (primary) hypertension (7) Hypokalemia Status: Acute Category: Medical Code(s): E87.6 - Hypokalemia (8) Viral pneumonia Status: Acute Category: Medical Code(s): J12.9 - Viral pneumonia, unspecified (9) Viral syndrome Status: Acute Category: Medical Code(s): B34.9 - Viral infection, unspecified (10) Constipation Status: Acute Category: Medical Code(s): K59.00 - Constipation, unspecified (11) Hyperkalemia Status: Acute Category: Medical Code(s): E87.5 - Hyperkalemia (12) Hyponatremia Status: Acute Category: Medical Code(s): E87.1 - Hypo-osmolality and hyponatremia - Assessment and plan all Dx Ass
[2021-08-27 08:00] LABS: ABG Base Excess 2.2 mmol/L (-2.4-2.3); ABG HCO3 29.4 mmhg (22.0-26.0); ABG Oxygen Saturation 89 % (90-100); ABG PH 7.25 mmol/L (7.35-7.45); ABG PO2 60.9 mmhg (80-100); ABG TCO2 31.5 mmhg (23-27)
[2021-08-27 08:06] LABS: Allen's Test Acceptable; Oxygen 100 %; PEEP 15; Tidal Volume 500; Vent Rate 30
[2021-08-27 08:07] LABS: ABG PCO2 68.6 mmhg (35.0-45.0)
[2021-08-27 08:14] LABS: Lactate Arterial 1.1 mmol/L (0.4-2.0)
--- NOTE | 2021-08-27 09:05 | HMH.ACPN2 ---
Internal Medicine - PN: Subj *Date: 08/27/21 *Time: 09:05 Interval history: Patient's oxygenation and hypercarbia have worsened. He was seen by pulmonology yesterday and his minute ventilation was increased, but he still showed metabolic acidosis with permissive hypercarbia. He felt he had worsening lung compliance with increased peak pressures. He was started on vancomycin for staph epi bacteremia and has completed a 10-day course of remdesivir and dexamethasone. Pulmonology is considering a bronchoscopy for his nonresolving pneumonia. Exam Vital signs and Labs for Last 24 Hours: Temp Pulse Resp BP Pulse Ox 96.9 F L 101 H 31 H 147/66 H 90 L 08/27/21 08:00 08/27/21 08:00 08/27/21 08:00 08/27/21 08:00 08/27/21 08:00 Laboratory Results - last 24 hr 08/26/21 10:34: Specimen Source A-line, O2 % 100, ABG pH 7.22 L*, ABG pCO2 89.6 H, ABG pO2 73.4 L, ABG HCO3 36.1 H, ABG Total CO2 38.8 H, ABG O2 Saturation 94, ABG Base Excess 8.4 H, Teto Test Acceptable, Vent Rate 28, Tidal Volume 500, PEEP 15 08/26/21 13:05: APTT 80.0 H* 08/26/21 14:30: Vancomycin Trough 33.1 H 08/26/21 14:56: Specimen Source A-line, O2 % 100, ABG pH 7.29 L, ABG pCO2 73.9 H, ABG pO2 94.4, ABG HCO3 35.1 H, ABG Total CO2 37.3 H, ABG O2 Saturation 97, ABG Base Excess 8.5 H, Teto Test Acceptable, Vent Rate 30, Tidal Volume 500, PEEP 15 08/26/21 21:00: APTT 84.1 H* 08/27/21 04:00: Sodium 125 L, Potassium 6.6 H*, Chloride 81 L, Carbon Dioxide 39 H, Anion Gap 11.6, BUN 49 H, Creatinine 1.80 H D, Estimated Creat Clear 67, Estimated GFR 39 L, Est GFR ( Amer) 47 L D, Glucose 116 H D, Calcium 8.0 L 08/27/21 04:00: Vancomycin Trough 21.0 H 08/27/21 05:00: APTT 71.7 H* 08/27/21 06:00: ABG Lactate 1.1 08/27/21 06:00: Specimen Source A-line, O2 % 100, ABG pH 7.25 L, ABG pCO2 68.6 H, ABG pO2 60.9 L, ABG HCO3 29.4 H, ABG Total CO2 31.5 H, ABG O2 Saturation 89 L, ABG Base Excess 2.2, Teto Test Acceptable, Vent Rate 30, Tidal Volume 500, PEEP 15 I & O for Last 24 hours: Intake & Output 08/24/21 08/25/21 08/26/21 08/27/21 11:59 11:59 11:59 11:59 Intake Total 2296 / 2296 4441 / 4560 1188 / 1188 1763 / 1763 Output Total 2665 / 3265 2240 / 2360 1685 / 1685 1800 / 1800 Balance -369 / -969 2201 / 2200 -497 / -497 -37 / -37 Weight 235 lb 8 oz 235 lb 8 oz 234 lb 6.4 oz 233 lb 6.137 oz Microbiology Reports for the Last 24 Hours: Microbiology 08/24/21 15:15 Blood Blood Culture - Preliminary NO GROWTH AFTER 48 HOURS 08/24/21 15:15 Blood Blood Culture - Preliminary NO GROWTH AFTER 48 HOURS - Constitutional no acute distress - *Routine Respiratory Exam Present: patient mechanically ventilated - *Routine Cardiovascular Exam Present: tachycardia - *Routine Abdominal Exam Present: soft, normoactive bowel sounds, distended. Absent: tenderness - *Routine Extremities Exam Present: edema (bilateral LE). Absent: cyanosis, clubbing - *Routine Skin Exam Present: warm. Absent: rash - *Routine Neurological Exam sedated Assessment and Plan (1) Acute respiratory failure due to COVID-19 Status: Acute Category: Medical Code(s): U07.1 - COVID-19; J96.00 - Acute respiratory failure, unspecified whether with hypoxia or hypercapnia (2) COVID-19 Status: Acute Category: Medical Code(s): U07.1 - COVID-19 (3) Acute respiratory failure with hypoxia Status: Acute Category: Medical Code(s): J96.01 - Acute respiratory failure with hypoxia (4) Constipation Status: Acute Category: Medical Code(s): K59.00 - Constipation, unspecified (5) Hyperlipidemia Status: Acute Category: Medical Code(s): E78.5 - Hyperlipidemia, unspecified (6) Hypertension Status: Chronic Category: Medical Code(s): I10 - Essential (primary) hypertension (7) Hypokalemia Status: Acute Category: Medical Code(s): E87.6 - Hypokalemia (8) Viral pneumonia Status: Acute Category: Medi
--- NOTE | 2021-08-27 09:12 | DIET.NUTRFU ---
TF remain on hold at this time. Pt potassium level has continued to increase and calcium and sodium remain low. BUN 49, GFR 39, creatinine 1.80. Pulmonology is considering a bronchoscopy for his nonresolving pneumonia per MD progress note. Will continue to monitor.
--- NOTE | 2021-08-27 09:26 | CT_ITS ---
PROCEDURE: CT ABDOMEN PELVIS WO CON CLINICAL INDICATION: distension COMPARISON: No exams were available for comparison TECHNIQUE: Axial images obtained with sagittal and coronal reformats. All CT scans at the facility use one or more dose reduction, viz: automated exposure control, ma/kV adjustment per patient size (including targeted exams where dose is matched to indication, i.e. head), or iterative reconstruction technique. FINDINGS: LOWER THORAX: Consolidation is present in both lower lobes posteriorly. There is diffuse ground-glass attenuation the right middle lobe and lower aspect of the right upper lobe with scattered parenchymal opacities. ABDOMEN & PELVIS: Large amount of contrast is present within the stomach. Gallbladder is contracted with thickened wall. The liver, spleen, adrenal glands, and pancreas have an unremarkable appearance. No renal or ureteral calculi. There is minimal ectasia of the left renal collecting system. No evidence of small-bowel obstruction. There is a marked amount of colonic feces in the ascending and transverse colon. Mild amount of colonic feces is present in the descending colon and proximal sigmoid colon. No evidence of rectal fecal impaction. There is a small focal area of narrowing within the mid aspect of the descending colon. This is of questionable clinical significance and could be due to an area of peristalsis. There is a mild amount of retained colonic feces both proximal and distal to this region. Hinton catheter is present. There is a small amount of air in the bladder which could be iatrogenic. There is minimal haziness of the pelvic fat along the left external iliac area nonspecific. Grade 1 spondylitic spondylolisthesis L5-S1. IMPRESSION: 1. Severe bilateral lower lobe pneumonia. 2. Moderate to severe constipation. There is a small focal area of colonic wall thickening and narrowing involving the mid aspect of the descending colon. This could be due to an area of peristalsis. Imaging diaz, cannot exclude the possibility of a small apple-core lesion. Follow-up CT to see if this area persists or colonoscopy may provide further evaluation. 3. No evidence of small-bowel obstruction. 4. Other nonacute findings as described above. Dictated by: Teto Reeder MD 08/27/2021 13:19 Teto Reeder MD in [facility] 08/27/2021 13:19
--- NOTE | 2021-08-27 09:31 | XR_ITS ---
PROCEDURE: XR CHEST PORTABLE CLINICAL HISTORY: pneumonia COMPARISON: CT CT ANGIO CHEST PE PROTOCOL from 08/21/2021 CR XR CHEST PORTABLE from 08/24/2021 CR XR CHEST PORTABLE from 08/25/2021 CR XR CHEST PORTABLE from 08/26/2021 FINDINGS: 9:30 a.m.. Endotracheal tube and nasogastric tube are in good position. Left subclavian central venous line has been placed. The tip is in the region the SVC. Cardiomegaly. Diffuse bilateral airspace disease not significantly changed. No evidence of pneumothorax. No acute bony abnormalities. IMPRESSION: No change diffuse airspace disease. Tubes and lines are in good position. Dictated by: Teto Reeder MD 08/27/2021 10:02 Teto Reeder MD in [facility] 08/27/2021 10:02
--- NOTE | 2021-08-27 09:37 | PC.NURSE ---
New 100ml bag of fentanyl hung with verification by Jerica Guardado. eMAR will not let RN scan prior to scheduled time of 1100
--- NOTE | 2021-08-27 10:03 | HMH.CONS ---
*Admission Date: 08/21/21 *Reason for consult:: Gross hematuria *History of present illness: Patient has been hospitalized for the last 3 weeks. He is now on mechanical intubation for Covid and has new onset of gross hematuria several days ago. This was preceded by heparinization for a left DVT. He has a Hinton catheter. Urine culture is negative. The urine in his bag today is moderately blood-tinged without clots. [facility] History Medical History: Reports:: Hyperlipidemia, Hypertension Denies:: Cancer, Diabetes Mellitus Type 1, Diabetes Mellitus Type 2, MRSA *Have you ever received a pneumonia vaccine?: No *Have you received a flu vaccine this season?: No Laterality Cases: Left: Other (Left elbow dislocation with treatment) Other Surgeries: Yes: No Previous Surgery Amputation: No Fractures: No - *Social History Last grade of school completed: 11th or 12th Smoking Status: Never smoker Alcohol Intake: never Substance Use Type: denies use *Occupational Status:: employed Household Members: family *Travel in the last 8 weeks: None Family Hx:: Cancer Review of Systems - *Neurologic Reports abnormal walking Meds Home Medications Medication Instructions Recorded Confirmed Type Albuterol Sulfate [Albuterol 2 puffs IH Q6HP PRN 30 Days #1 each 08/07/21 08/08/21 Rx Sulfate Hfa] Benzonatate [Benzonatate 100mg 100 mg PO TIDP PRN #30 cap 08/07/21 08/08/21 Rx cap] Ezetimibe [Zetia] 10 mg PO DAILY 08/07/21 08/08/21 History Losartan Potassium [Cozaar 100mg 100 mg PO DAILY 08/07/21 08/08/21 History Tablets] hydroCHLOROthiazide [HCTZ 25mg 25 mg PO DAILY 08/07/21 08/08/21 History tab] Azithromycin 250 mg PO DAILY 08/08/21 08/08/21 History Fish Oil/Dha/Epa [Fish Oil 1,200 1 each PO DAILY 08/08/21 08/08/21 History mg Fish Oil] dexAMETHasone [Decadron] 6 mg PO DAILY 08/08/21 08/08/21 History Allergies Allergy/AdvReac Type Severity Reaction Status Date / Time Hflvpwk-Aot-Vyp Reductase Allergy Verified 08/08/21 14:33 Inhibitor Exam Vital signs and Labs for Last 24 Hours: Temp Pulse Resp BP Pulse Ox 96.9 F L 101 H 31 H 147/66 H 90 L 08/27/21 08:00 08/27/21 08:00 08/27/21 08:00 08/27/21 08:00 08/27/21 08:00 Laboratory Results - last 24 hr 08/26/21 10:34: Specimen Source A-line, O2 % 100, ABG pH 7.22 L*, ABG pCO2 89.6 H, ABG pO2 73.4 L, ABG HCO3 36.1 H, ABG Total CO2 38.8 H, ABG O2 Saturation 94, ABG Base Excess 8.4 H, Teto Test Acceptable, Vent Rate 28, Tidal Volume 500, PEEP 15 08/26/21 13:05: APTT 80.0 H* 08/26/21 14:30: Vancomycin Trough 33.1 H 08/26/21 14:56: Specimen Source A-line, O2 % 100, ABG pH 7.29 L, ABG pCO2 73.9 H, ABG pO2 94.4, ABG HCO3 35.1 H, ABG Total CO2 37.3 H, ABG O2 Saturation 97, ABG Base Excess 8.5 H, Teto Test Acceptable, Vent Rate 30, Tidal Volume 500, PEEP 15 08/26/21 21:00: APTT 84.1 H* 08/27/21 04:00: Sodium 125 L, Potassium 6.6 H*, Chloride 81 L, Carbon Dioxide 39 H, Anion Gap 11.6, BUN 49 H, Creatinine 1.80 H D, Estimated Creat Clear 67, Estimated GFR 39 L, Est GFR ( Amer) 47 L D, Glucose 116 H D, Calcium 8.0 L 08/27/21 04:00: Vancomycin Trough 21.0 H 08/27/21 05:00: APTT 71.7 H* 08/27/21 06:00: ABG Lactate 1.1 08/27/21 06:00: Specimen Source A-line, O2 % 100, ABG pH 7.25 L, ABG pCO2 68.6 H, ABG pO2 60.9 L, ABG HCO3 29.4 H, ABG Total CO2 31.5 H, ABG O2 Saturation 89 L, ABG Base Excess 2.2, Teto Test Acceptable, Vent Rate 30, Tidal Volume 500, PEEP 15 I & O for Last 24 hours: Intake & Output 08/24/21 08/25/21 08/26/21 08/27/21 23:59 23:59 23:59 23:59 Intake Total 4200 / 4200 2384 / 2574 1391 / 1563 868 / 868 Output Total 3345 / 3345 2065 / 2145 1445 / 1605 850 / 850 Balance 855 / 855 319 / 429 -54 / -42 Weight 106.821 kg 106.821 kg 106.322 kg 105.861 kg Microbiology Reports for the Last 24 Hours: Microbiology 08/22/21 10:00 Blood Blood Culture - Final NO GROWTH AFTER 5 DAYS 08/24/21 15:15 Blood
--- NOTE | 2021-08-27 10:12 | PC.NURSE ---
Dr. Larson rounding. He ordered CBI r/t gross hematuria. Dr. Larson states to run CBI for a couple of days until urine clears up and then stop CBI. Order verbalized back to Dr. Larson. Order faxed to pharmacy and communication order entered.
--- NOTE | 2021-08-27 10:31 | HMH.ACPN2 ---
Internal Medicine - PN: Subj *Date: 08/27/21 *Time: 10:31 Exam Vital signs and Labs for Last 24 Hours: Temp Pulse Resp BP Pulse Ox 96.9 F L 104 H 32 H 136/69 89 L 08/27/21 08:00 08/27/21 10:00 08/27/21 10:00 08/27/21 10:00 08/27/21 10:00 Laboratory Results - last 24 hr 08/26/21 10:34: Specimen Source A-line, O2 % 100, ABG pH 7.22 L*, ABG pCO2 89.6 H, ABG pO2 73.4 L, ABG HCO3 36.1 H, ABG Total CO2 38.8 H, ABG O2 Saturation 94, ABG Base Excess 8.4 H, Teto Test Acceptable, Vent Rate 28, Tidal Volume 500, PEEP 15 08/26/21 13:05: APTT 80.0 H* 08/26/21 14:30: Vancomycin Trough 33.1 H 08/26/21 14:56: Specimen Source A-line, O2 % 100, ABG pH 7.29 L, ABG pCO2 73.9 H, ABG pO2 94.4, ABG HCO3 35.1 H, ABG Total CO2 37.3 H, ABG O2 Saturation 97, ABG Base Excess 8.5 H, Teto Test Acceptable, Vent Rate 30, Tidal Volume 500, PEEP 15 08/26/21 21:00: APTT 84.1 H* 08/27/21 04:00: Sodium 125 L, Potassium 6.6 H*, Chloride 81 L, Carbon Dioxide 39 H, Anion Gap 11.6, BUN 49 H, Creatinine 1.80 H D, Estimated Creat Clear 67, Estimated GFR 39 L, Est GFR ( Amer) 47 L D, Glucose 116 H D, Calcium 8.0 L 08/27/21 04:00: Vancomycin Trough 21.0 H 08/27/21 05:00: APTT 71.7 H* 08/27/21 06:00: ABG Lactate 1.1 08/27/21 06:00: Specimen Source A-line, O2 % 100, ABG pH 7.25 L, ABG pCO2 68.6 H, ABG pO2 60.9 L, ABG HCO3 29.4 H, ABG Total CO2 31.5 H, ABG O2 Saturation 89 L, ABG Base Excess 2.2, Teto Test Acceptable, Vent Rate 30, Tidal Volume 500, PEEP 15 I & O for Last 24 hours: Intake & Output 08/24/21 08/25/21 08/26/21 08/27/21 23:59 23:59 23:59 23:59 Intake Total 4200 / 4200 2384 / 2574 1391 / 1563 1228 / 1228 Output Total 3345 / 3345 2065 / 2145 1445 / 1605 955 / 955 Balance 855 / 855 319 / 429 -54 / -42 273 / 273 Weight 106.821 kg 106.821 kg 106.322 kg 105.861 kg Microbiology Reports for the Last 24 Hours: Microbiology 08/22/21 10:00 Blood Blood Culture - Final NO GROWTH AFTER 5 DAYS 08/24/21 15:15 Blood Blood Culture - Preliminary NO GROWTH AFTER 48 HOURS 08/24/21 15:15 Blood Blood Culture - Preliminary NO GROWTH AFTER 48 HOURS Assessment and Plan (1) Acute respiratory failure due to COVID-19 Status: Acute Category: Medical Code(s): U07.1 - COVID-19; J96.00 - Acute respiratory failure, unspecified whether with hypoxia or hypercapnia (2) COVID-19 Status: Acute Category: Medical Code(s): U07.1 - COVID-19 (3) Acute respiratory failure with hypoxia Status: Acute Category: Medical Code(s): J96.01 - Acute respiratory failure with hypoxia (4) Constipation Status: Acute Category: Medical Code(s): K59.00 - Constipation, unspecified (5) Hyperlipidemia Status: Acute Category: Medical Code(s): E78.5 - Hyperlipidemia, unspecified (6) Hypertension Status: Chronic Category: Medical Code(s): I10 - Essential (primary) hypertension (7) Hypokalemia Status: Acute Category: Medical Code(s): E87.6 - Hypokalemia (8) Viral pneumonia Status: Acute Category: Medical Code(s): J12.9 - Viral pneumonia, unspecified (9) Viral syndrome Status: Acute Category: Medical Code(s): B34.9 - Viral infection, unspecified (10) Constipation Status: Acute Category: Medical Code(s): K59.00 - Constipation, unspecified (11) Hyperkalemia Status: Acute Category: Medical Code(s): E87.5 - Hyperkalemia (12) Hyponatremia Status: Acute Category: Medical Code(s): E87.1 - Hypo-osmolality and hyponatremia (13) Gross hematuria Status: Acute Category: Medical Code(s): R31.0 - Gross hematuria The patient's infection will respond to the chosen ABx?: Yes Is the patient receiving the right drug, dose, and route?: Yes Could a more targeted ABx be ordered?: No
--- NOTE | 2021-08-27 10:56 | PC.NURSE ---
oral contrast given via OG tube @ 1055. CT scan (Pam) notified.
--- NOTE | 2021-08-27 11:20 | PC.NURSE ---
verbal consent obtained by phone with YAHIR (Adilia Russell) for bronchoscopy with lavage.
[2021-08-27 12:40] LABS: Activated Partial Thrombo Time 58.9 seconds (22.8-30.6)
--- NOTE | 2021-08-27 12:40 | PC.NURSE ---
pt to CT scan
--- NOTE | 2021-08-27 13:15 | PC.NURSE ---
16fr theodore catheter removed and 22fr 30cc 3way catheter inserted for CBI. CBI started.
--- NOTE | 2021-08-27 13:29 | PC.NURSE ---
notified pharmacy (Leonardo Bowser) that PTT is 58.9. New order received to increase Heparin gtt to 1950units/hr.
--- NOTE | 2021-08-27 14:40 | HMH.PULMPN ---
Internal Medicine - PN: Subj *Date: 08/27/21 *Time: 14:40 Interval history: No improvement in respiratory status in the last 24 hours. Continue to remain critical on high ventilator settings. Exam - Constitutional Constitutional:: Absent: no acute distress, comfortable - HENMT Exam HENMT: Present: normocephalic, atraumatic - Eye Exam Eyes:: Present: normal appearance both eyes and related structures - Neck Exam Neck:: Present: normal visual inspection - Respiratory Exam Respiratory:: Present: respiratory distress, rales, rhonchi - Cardiovascular Exam Cardiac:: Present: S1, S2 - GI Exam GI:: Present: soft, distended - Skin Exam Skin: Present: warm - Neurological Exam Neurological: Absent: alert, awake, normal cognition - Extremities Exam Extremities: Present: no cyanosis, no clubbing, edema Assessment and Plan (1) Acute respiratory failure due to COVID-19 Status: Acute Category: Medical Code(s): U07.1 - COVID-19; J96.00 - Acute respiratory failure, unspecified whether with hypoxia or hypercapnia (2) COVID-19 Status: Acute Category: Medical Code(s): U07.1 - COVID-19 (3) Acute respiratory failure with hypoxia Status: Acute Category: Medical Code(s): J96.01 - Acute respiratory failure with hypoxia (4) Constipation Status: Acute Category: Medical Code(s): K59.00 - Constipation, unspecified (5) Hyperlipidemia Status: Acute Category: Medical Code(s): E78.5 - Hyperlipidemia, unspecified (6) Hypertension Status: Chronic Category: Medical Code(s): I10 - Essential (primary) hypertension (7) Hypokalemia Status: Acute Category: Medical Code(s): E87.6 - Hypokalemia (8) Viral pneumonia Status: Acute Category: Medical Code(s): J12.9 - Viral pneumonia, unspecified (9) Viral syndrome Status: Acute Category: Medical Code(s): B34.9 - Viral infection, unspecified (10) Constipation Status: Acute Category: Medical Code(s): K59.00 - Constipation, unspecified (11) Hyperkalemia Status: Acute Category: Medical Code(s): E87.5 - Hyperkalemia (12) Hyponatremia Status: Acute Category: Medical Code(s): E87.1 - Hypo-osmolality and hyponatremia (13) Gross hematuria Status: Acute Category: Medical Code(s): R31.0 - Gross hematuria - Assessment and plan all Dx Assessment and Plan for all problems:: #Acute hypoxic respiratory failure: #COVID-19 pneumonia: 55-year-old completed vaccination for COVID-19 pneumonia no prior respiratory complaints not on any inhalers at baseline presented with respiratory distress. D-dimer elevated at 1.05 and CRP at 79. LDH at 1096 CTA showed bilateral diffuse groundglass opacities Patient respiratory is continued decline eventually needing intubation and mechanical ventilatory support on 08/12/2021. Lower extremity Doppler positive for proximal DVT. CTA negative for pulmonary embolism. CTA showed bilateral diffuse groundglass opacities similar to prior along with new bilateral lower lobe consolidative changes and traaction bronchectasis Most recent echo from 08/19 did not show evidence of RV strain. LV diastolic dysfunction, with normal RV size and contractility. Plan: Intubated and sedated with Versed and fentanyl. Patient continued to have permissive hypercarbia, pH of 7.25 with a PCO2 of 68.6 and a PO2 of 60.9. Continue remaining 100% FiO2 500 of tidal volume and a rate of 30.Worsening Lung compliance. Nasal MRSA PCR negative. Completed 10-day course of remdesivir and dexamethasone. Will consider bronchoscopy tomorrow for non-resolving Pneumonia. Worsening leukocytosis. Continues remain on cefepime and levofloxacin. Vancomycin discontinued today. Blood cultures that were repeated prior to vancomycin initiation was negative at 48 hours. Abdomen soft, increasingly tense and distended. No bowel movements. Tube feeds on hold. Continue aggressive bowel regimen. CT abdomen pelvis no acute find
--- NOTE | 2021-08-27 16:02 | PC.NURSE ---
Kayexelate enema and Lactulose enema given without results. Pt unable to retain liquid in rectal vault. No BM produced.
[2021-08-27 23:11] LABS: PTT Heparin (inpatient only) 49.3 Seconds (23.6-34.0)
--- NOTE | 2021-08-27 23:41 | PC.NURSE ---
pt had a large BM this shift.
[2021-08-28] VITALS (20 sets, daily range): BP systolic 71–128; BP diastolic 42–57; PULSE 79–100; RESP 18–36; TEMP 35.7–37.1; O2SAT 73–119; BMI 33.9
--- NOTE | 2021-08-28 06:25 | PC.NURSE ---
pt had another small BM. CBI still going, urine is light red/pink. oral care q2h and prn, turned q2h. bed bath done this shift.
[2021-08-28 06:28] LABS: Chloride 82 mmol/L (98-107)
[2021-08-28 06:29] LABS: Potassium 5.6 mmoL/L (3.5-5.1); Sodium 126 mmol/L (136-145)
[2021-08-28 06:31] LABS: Blood Urea Nitrogen 62 mg/dl (9-20)
[2021-08-28 06:32] LABS: Calcium 7.8 mg/dl (8.4-10.2); Glucose 87 mg/dl (74-100)
[2021-08-28 06:38] LABS: Creatinine Clearance Estimated 53 mL/min (50-200); Estimated Glomerular Filt Rate 29 ml/min (>60); GFR (African American) 36 ML/MIN (>60)
[2021-08-28 06:39] LABS: Anion Gap 14.6 mEq/L (5-15); Carbon Dioxide 35 mmol/L (22.0-30.0)
[2021-08-28 08:04] LABS: PTT Heparin (inpatient only) 109.3 Seconds (23.6-34.0)
[2021-08-28 08:18] LABS: ABG Base Excess 8.3 mmol/L (-2.4-2.3); ABG HCO3 34.7 mmhg (22.0-26.0); ABG Oxygen Saturation 95 % (90-100); ABG TCO2 36.9 mmhg (23-27); Oxygen 100 %; PEEP 15; Tidal Volume 500; Vent Rate 30
--- NOTE | 2021-08-28 08:21 | PC.NURSE ---
0804 received notification of PTT results of 109.3 0821 notified Omkar in pharmacy. states Pablo is aware and working on dosage
--- NOTE | 2021-08-28 08:22 | PC.NURSE ---
received critical ABG results from Respiratory. RT notified Dr Blanca at this time.
--- NOTE | 2021-08-28 08:25 | HMH.ACPN2 ---
Internal Medicine - PN: Subj *Date: 08/28/21 *Time: 08:25 Interval history: Patient's respiratory status has not improved. He still on high ventilator settings. He did have a few bowel movements yesterday. White blood cell count is elevated but patient did have a dose of steroids. Potassium has improved slightly but kidney function is worsening. Exam Vital signs and Labs for Last 24 Hours: Temp Pulse Resp BP Pulse Ox 97.6 F 79 18 116/48 L 97 08/28/21 05:00 08/28/21 06:43 08/28/21 06:43 08/28/21 06:43 08/28/21 06:43 Laboratory Results - last 24 hr 08/27/21 12:00: APTT 58.9 H 08/27/21 21:12: APTT 49.3 H 08/28/21 05:55: APTT 109.3 H* 08/28/21 05:55: Sodium 126 L, Potassium 5.6 H, Chloride 82 L, Carbon Dioxide 35 H, Anion Gap 14.6, BUN 62 H D, Creatinine 2.30 H D, Estimated Creat Clear 53, Estimated GFR 29 L, Est GFR ( Amer) 36 L D, Glucose 87, Calcium 7.8 L 08/28/21 06:00: ABG Lactate 1.0 08/28/21 06:00: Specimen Source A-line, O2 % 100, ABG pH 7.30 L, ABG pCO2 72.0 H, ABG pO2 78.0 L, ABG HCO3 34.7 H, ABG Total CO2 36.9 H, ABG O2 Saturation 95, ABG Base Excess 8.3 H, Teto Test N/a, Vent Rate 30, Tidal Volume 500, PEEP 15 I & O for Last 24 hours: Intake & Output 08/25/21 08/26/21 08/27/21 08/28/21 11:59 11:59 11:59 11:59 Intake Total 4441 / 4560 1188 / 1188 2122 / 2122 1576 / 1576 Output Total 2240 / 2360 1685 / 1685 190 / 2094 2119 / 2119 Balance 2201 / 2200 -497 / -497 218 / 28 -544 / -544 Weight 235 lb 8 oz 234 lb 6.4 oz 233 lb 6.137 oz 236 lb 15.633 oz Microbiology Reports for the Last 24 Hours: Microbiology 08/22/21 10:00 Blood Blood Culture - Final NO GROWTH AFTER 5 DAYS - Constitutional no acute distress - *Routine Respiratory Exam Present: patient mechanically ventilated - *Routine Cardiovascular Exam Present: RRR - *Routine Abdominal Exam Present: soft, normoactive bowel sounds. Absent: tenderness - *Routine Extremities Exam Present: edema (Her lower extremity). Absent: cyanosis, clubbing - *Routine Skin Exam Present: warm. Absent: rash - *Routine Neurological Exam Sedated Assessment and Plan (1) Acute respiratory failure due to COVID-19 Status: Acute Category: Medical Code(s): U07.1 - COVID-19; J96.00 - Acute respiratory failure, unspecified whether with hypoxia or hypercapnia (2) COVID-19 Status: Acute Category: Medical Code(s): U07.1 - COVID-19 (3) Acute respiratory failure with hypoxia Status: Acute Category: Medical Code(s): J96.01 - Acute respiratory failure with hypoxia (4) Constipation Status: Acute Category: Medical Code(s): K59.00 - Constipation, unspecified (5) Hyperlipidemia Status: Acute Category: Medical Code(s): E78.5 - Hyperlipidemia, unspecified (6) Hypertension Status: Chronic Category: Medical Code(s): I10 - Essential (primary) hypertension (7) Hypokalemia Status: Acute Category: Medical Code(s): E87.6 - Hypokalemia (8) Viral pneumonia Status: Acute Category: Medical Code(s): J12.9 - Viral pneumonia, unspecified (9) Viral syndrome Status: Acute Category: Medical Code(s): B34.9 - Viral infection, unspecified (10) Constipation Status: Acute Category: Medical Code(s): K59.00 - Constipation, unspecified (11) Hyperkalemia Status: Acute Category: Medical Code(s): E87.5 - Hyperkalemia (12) Hyponatremia Status: Acute Category: Medical Code(s): E87.1 - Hypo-osmolality and hyponatremia (13) Gross hematuria Status: Acute Category: Medical Code(s): R31.0 - Gross hematuria - Assessment and plan all Dx Assessment and Plan for all problems:: Pulmonology to continue to follow.
--- NOTE | 2021-08-28 09:00 | PC.WOUNDNOTE ---
Pt bottom/coccyx area during am assessment
--- NOTE | 2021-08-28 10:25 | XR_ITS ---
PROCEDURE: XR CHEST PORTABLE CLINICAL HISTORY: Pneumonia COMPARISON: CT CT ANGIO CHEST PE PROTOCOL from 08/21/2021 CR XR CHEST PORTABLE from 08/25/2021 CR XR CHEST PORTABLE from 08/26/2021 CR XR CHEST PORTABLE from 08/27/2021 FINDINGS: 1206 hours. Endotracheal tube is in good position. Left subclavian central venous line tip is in the region the SVC. Nasogastric tube tip not visible on the image. The lower chest and left aspect of the chest is not visible on the image. There has been interval development of a large right-sided pneumothorax with collapse of the right lung near complete opacification of the left lung and diffuse subcutaneous emphysema. IMPRESSION: Interval development of large right-sided pneumothorax with collapse of the right lung, diffuse subcutaneous emphysema on both sides, and complete opacification of the left lung. Endotracheal tube is in good position. Dictated by: Teto Reeder MD 08/28/2021 12:58 Teto Reeder MD in [facility] 08/28/2021 12:58
--- NOTE | 2021-08-28 10:57 | HMH.ITSTN ---
went to do portable cxr and Dr. menon was doing a procedure and said it would take 25-30 minutes , spoke to gem DONAHUE and asked her to call when they are done with the procedure.
[2021-08-28 11:39] LABS: Basophils # 0.1 K/mm3 (0-0.2); Basophils % 0.4 % (0.1-2.0); Eosinophils # 0.1 K/mm3 (0.0-0.4); Eosinophils % 0.6 % (0.1-12.0); Hematocrit 25.2 % (42.0-52.0); Hemoglobin 8.1 g/dL (14.1-18.0); Lymphocytes # 0.9 K/mm3 (0.7-4.5); Lymphocytes % 4.9 % (10-50); Mean Corpuscular HGB Conc 32.3 g/dL (31.8-35.4); Mean Corpuscular Hemoglobin 31.5 pg (27.0-31.2); Mean Corpuscular Volume 97.4 fl (80-94); Mean Platelet Volume 10.9 fl (7.4-10.4); Monocytes # 0.6 K/mm3 (0.1-1.0); Monocytes % 3.5 % (1.7-9.3); Neutrophils % 90.5 % (37.0-80.0); Platelet Count 291 K/mm3 (142-424); Red Blood Count 2.59 M/mm3 (4.60-6.20); Red Cell Distribution Width 15.4 % (11.5-17.5); White Blood Count 17.7 K/mm3 (4.8-10.8)
[2021-08-28 11:53] LABS: MANUAL DIFFERENTIAL MANUAL DIFFERENTIAL (MANUAL DIFF)
--- NOTE | 2021-08-28 12:06 | PC.NURSE ---
SPOKE WITH DR. STEVENSON TO NOTIFY THAT PATIENT HAS WENT IN TO CARDIAC ARREST. DR. STEVENSON STATED THAT HE WOULD NOTIFY DR. GAMEZ AND TO KEEP HIM UPDATED.
--- NOTE | 2021-08-28 12:13 | PC.NURSE ---
SPOKE WITH ALYSSA KELLY, FAMILY MEMBER TO NOTIFY HER OF DECLINE IN PATIENT'S CONDITION. INFORMED HER THAT WE ARE CURRENTLY DOING CPR. IN INFORMED HER THAT SHE CAN COME SEE PATIENT. DR. CROUCH ON THE PHONE WITH ALYSSA AT THIS TIME INFORMING HER OF PATIENTS STATUS.
--- NOTE | 2021-08-28 12:23 | PC.NURSE ---
DR. STEVENSON AT BEDSIDE.
[2021-08-28 14:25] LABS: Hypochromasia 2+; Lymphocytes % 3 % (10-50); Microcytosis 1+; Monocytes % 4 % (2-9); Neutrophils % 92 % (42-76); Platelet Estimate Normal; Total Cells Counted 100
--- NOTE | 2021-08-28 14:32 | HMH.PULMPN ---
Internal Medicine - PN: Subj *Date: 08/28/21 *Time: 14:32 Interval history: No acute respiratory events overnight. Continue to remain in high ventilator settings Exam - Constitutional Constitutional:: Absent: no acute distress, comfortable - HENMT Exam HENMT: Present: normocephalic - Respiratory Exam Respiratory:: Present: respiratory distress, rales, rhonchi - Cardiovascular Exam Cardiac:: Present: S1, S2 - GI Exam GI:: Present: soft, distended - Skin Exam Skin: Present: warm - Neurological Exam Neurological: Absent: alert, awake, normal cognition - Extremities Exam Extremities: Present: no cyanosis, no clubbing, edema Assessment and Plan (1) Acute respiratory failure due to COVID-19 Status: Acute Category: Medical Code(s): U07.1 - COVID-19; J96.00 - Acute respiratory failure, unspecified whether with hypoxia or hypercapnia (2) COVID-19 Status: Acute Category: Medical Code(s): U07.1 - COVID-19 (3) Acute respiratory failure with hypoxia Status: Acute Category: Medical Code(s): J96.01 - Acute respiratory failure with hypoxia (4) Constipation Status: Acute Category: Medical Code(s): K59.00 - Constipation, unspecified (5) Hyperlipidemia Status: Acute Category: Medical Code(s): E78.5 - Hyperlipidemia, unspecified (6) Hypertension Status: Chronic Category: Medical Code(s): I10 - Essential (primary) hypertension (7) Hypokalemia Status: Acute Category: Medical Code(s): E87.6 - Hypokalemia (8) Viral pneumonia Status: Acute Category: Medical Code(s): J12.9 - Viral pneumonia, unspecified (9) Viral syndrome Status: Acute Category: Medical Code(s): B34.9 - Viral infection, unspecified (10) Constipation Status: Acute Category: Medical Code(s): K59.00 - Constipation, unspecified (11) Hyperkalemia Status: Acute Category: Medical Code(s): E87.5 - Hyperkalemia (12) Hyponatremia Status: Acute Category: Medical Code(s): E87.1 - Hypo-osmolality and hyponatremia (13) Gross hematuria Status: Acute Category: Medical Code(s): R31.0 - Gross hematuria - Assessment and plan all Dx Assessment and Plan for all problems:: #Acute hypoxic respiratory failure: #COVID-19 pneumonia: 55-year-old completed vaccination for COVID-19 pneumonia no prior respiratory complaints not on any inhalers at baseline presented with respiratory distress. D-dimer elevated at 1.05 and CRP at 79. LDH at 1096 CTA showed bilateral diffuse groundglass opacities Patient respiratory is continued decline eventually needing intubation and mechanical ventilatory support on 08/12/2021. Lower extremity Doppler positive for proximal DVT. CTA negative for pulmonary embolism. CTA showed bilateral diffuse groundglass opacities similar to prior along with new bilateral lower lobe consolidative changes and traaction bronchectasis Most recent echo from 08/19 did not show evidence of RV strain. LV diastolic dysfunction, with normal RV size and contractility. Patient respiratory status continued to worsen with worsening lung compliance with worsening hypercarbic respiratory failure. His minute ventilation has been increased with a permissive hypercarbia. ABG this morning showed mild improvement in respiratory acidosis. He did have bowel movement yesterday. His renal function continued to worsen with worsening BUN/creatinine and decreasing urine output. Continue to have hematuria. Hemoglobin continues to decline. He continues receive cefepime and levofloxacin. Vancomycin was discontinued. Continue to receive heparin drip for his DVT. Plan is nonresolving pneumonia and the plan was made to proceed with bronchoscopy. bronchoscopy procedure was started and clean therapeutic bronchoscopy was advanced to the ET tube and multiple thick mucus secretions were noted in the ET tube that were suctioned. Bronchoscopy was not even advanced up until to the level of the pamela. Patient note
--- NOTE | 2021-08-28 14:44 | P.PCN_ITS ---
- Procedure: Date: 08/28/21 Patient Date of :: 1965 Procedure Performed:: Bronchoscopy Indications:: Nonresolving pneumonia, COVID-19 pneumonia Performing Provider:: Oleg Blanca MD Referring Provider:: Dr. Mena Sedation:: Patient intubated and sedated. Procedure:: Carr therapeutic bronchoscopy was advanced through the ET tube. Copious a ksenia of thick mucoid and dried secretions were noted rigidity partially occluding the ET tube. The dried secretions were extracted from the ET tube using biopsy forceps. During the procedure patient noted worsening hypoxic respiratory failure and the procedure was aborted. We did not get a chance to advance the bronchoscopy beyond the ET tube to examine pamela and airways beyond. No samples were collected Findings:: Please see the procedure note Recommendations:: No further recommendations Complications:: Patient noted to have worsening hypoxic respiratory failure during the procedure and was eventually aborted. Estimated blood obtained (mL): 0
--- NOTE | 2021-08-28 14:44 | PC.NURSE ---
Called [facility] in [place] and notified them that pt was ready for transport.
--- NOTE | 2021-08-28 14:46 | PC.NURSE ---
1050: Patient began Bronchoscopy in room pt being monitored by Jazmin Caro RT, Shirley Cruz RT, Dr Blanca, Aline Us RN, Hannah An RN. 1100: pt sats noted to be low r/t having bronchoscopy tube in place/use. 1102: Dr Blanca requests 50Mcg of Rocuronium. Medication pulled from Rapid Sequence Intubation kit, drawn up and given to Dr Blanca for administration. 1106: PT bp 77/42 via L art line. This RN entered pt room to assess pt art line and bp. BP/art line appeared accurate. pt was started on 1000ml fluid bolus at this time. 1110 (approx): Dr Blanca changed out ETT using bougie r/t thick mucus and possible plugging of ETT. 1115: pt BP remains low (78/45) not responding to fluid bolus. pt was placed on levophed drip. pt art line was verified to be in the correct location (phlebostatic axis) 1125 (approx): it was noted that the did not have breath sounds on the right side, pt abdomen was also noted to be extremely distended and tight like a drum. pt levophed drip was titrated/increased numerous times, under the direction of Dr Blanca during this time period related to continually falling bp. 11:35 42/37 pt levophed drip was noted to be maxed, fluid bolus infusing and bp still remained pt was not responding to resuscitative measures. pt heart rate was noted to have declined from 110's-60's. 1143: Epi given 1144:atrpoine given (pulse dopplered at 44) 1147: 2 amps of sodium bicarb given 1152: atropine given 1155: Code blue called, CPR began 1155: Epi drip started (rates advised by pharmacy) 1158: Pulse Check- Asystole/PEA compressions resumed 1159: Epi given 1201: Pulse Check- Asystole/PEA compressions resumed 1202: atropine given 1203: Epi given 1204:Pulse Check- Asystole/PEA compressions resumed 1204: 1 amp of bicarb given 1205: Dr Nogueira at bedside. 1206:Pulse Check- Asystole/PEA compressions resumed 1207: Stat chest xray ordered per ER MD at bed 1209:Pulse Check- Asystole/PEA compressions resumed 1211: Dr Nogueira inserted chest tube in R chest 1212:Pulse Check- Asystole/PEA compressions resumed 1214:Pulse Check- Asystole/PEA compressions resumed 1216: Pulse Check- Asystole/PEA compressions resumed 1218: Pulse Check- Asystole/PEA compressions resumed 1218: 2 GM Calcium 1219: epi given 1219: Atropine given 1220: efforts terminated, TOD 1220
--- NOTE | 2021-09-01 15:08 | HMH.DCSUM ---
General - General Admission date:: 08/08/21 Discharge date: 08/28/21 HPI HPI: This 55-year-old white male was seen in urgent treatment on 08/05 and had a positive PCR for Covid 19. He was scheduled for RegenCov antibody infusion as an outpatient today but was found to be hypoxic. He is admitted for full treatment for Covid 19 pneumonia. He is a poor historian. He is from [place] and sees a nurse practitioner there, Pushpa English. He states he is healthy except for hypertension and hyperlipidemia. He states he does not tolerate cholesterol medicines very well. The patient exhibits some spasticity suggestive of cerebral palsy. Hospital Course Hospital Course: The patient was admitted and started on COVID-19 protocol. He initially required Vapotherm to maintain saturations. His saturations dropped with any exertion. His potassium was low and had to be replaced. His hypoxia worsened and he was placed on BiPAP, which she was not able to tolerate. He was placed back on Vapotherm, but his sats were still dropping below 90. Pulmonology was consulted. He saw the patient and proning protocol was initiated. A CTA was also ordered. He was started on Rocephin and Zithromax as well as Advair 250/50 grams twice daily. Chest CTA showed diffuse groundglass opacifications in both upper and lower lobes and no evidence of PE. He had to be switched back to BiPAP due to oxygen sats dropping into the 70s on max Vapotherm. On 08/12/2021, the patient was maxed on Vapotherm and also had a nonrebreather in place. He was having difficulty breathing and was in respiratory distress. His oxygen saturations were in the 80s and his heart rate was in the 120s. He had to be intubated. He became hemodynamically unstable post intubation and pressors had to be initiated. His blood pressures were stable on Levophed. His oxygen and heart rate were initially stable as well. His propofol did have to be increased due to some agitation. The patient began getting hypoxic on 08/15/2021 and had to be given Lasix. His blood cultures returned showing Staph epidermidis and his sputum culture was growing stenotrophomonas maltophilia and yeast. His antibiotics were changed to cefepime and vancomycin. He was started on tube feedings and ventilatory support was continued. His FiO2 had to gradually be increased. His white blood cell count improved initially after starting new antibiotics. He was able to be weaned off the Levophed and was tolerating tube feedings. He did begin having leg edema and more Lasix was ordered. He did have to be restarted back on Levophed on 08/18/2021 due to low blood pressures. His white blood cell count began increasing again. His vancomycin was discontinued as was his cefepime and he was started on Levaquin as the Stenotrophomonas maltophilia was sensitive to this. The patient became restless and was overriding the vent. He remained on sedation and was given extra Versed for restlessness. Pulmonology recommended continuing on cefepime and initiating Bactrim. His Levaquin was discontinued. He had an echo showing an EF of 55% with grade [address] Cordoba was consulted for central line placement on 08/19/2021. The patient continued with intermittent agitation and desaturation episodes. He had a venous Doppler done on 08/21/2021 showing a DVT of the left popliteal and posterior tibial vein. He had a repeat chest CTA showing progression of the diffuse bilateral airspace disease consistent with worsening COVID-19 pneumonia but no obvious PE. He also had a sinus CT showing bilateral mastoid sinus opacification and bilateral middle ear opacification. He was started on heparin for his DVT. He was given Lasix for fluid overload, but his oxygen requirement continued to increase and he was eventually on FiO2 100%. He began spiking a fever on 08/23/2021 and his chest x-ray showed increasing left lower lobe infiltrate. He was tole
== END 2021-08-28 18:00 | disposition expired | DRG 207 ==
LOC: ER 11:25 → 2ND 15:16
PROVIDERS: Family Medicine; Internal Medicine Pulmonary Disease; Nurse Practitioner Family; Admitting Provider Family Medicine; Emergency Provider Family Medicine; PCP Nurse Practitioner Family; Visit Provider Family Medicine
PROC: 0B928ZZ Drainage of Carina, Via Natural or Artificial Opening Endoscopic (ICD-10-PCS; principal; 2021-08-28 10:00)
DX: U07.1 COVID-19 (principal); J12.82 Pneumonia due to coronavirus disease 2019; J96.01 Acute respiratory failure with hypoxia; G80.9 Cerebral palsy, unspecified; E87.6 Hypokalemia; I10 Essential (primary) hypertension; Z86.718 Personal history of other venous thrombosis and embolism; R31.9 Hematuria, unspecified; E87.5 Hyperkalemia
CPT/HCPCS: 31500; 94002; 36556; 31622; 36415; 70486; 71045; 71046; 71275; 74018; 74176; 80048; 80053; 80202; 81001; 82803; 82962; 83605; 83615; 83735; 83880; 84100; 84478; 84484; 85007; 85025; 85378; 85730; 86140; 86328; 87040; 87070; 87077; 87081; 87086; 87186; 87205; 87581; 87632; 87798; 87880; 93005; 93306; 93970; 94003; 94640; 94760; 94761; 96365; 99152; 99153; 99202; 99203; 99284; C1751; C9803; G0463; J0456; J0692; J1956; J2704; J3370; Q9967; U0003; U0005